=== PATIENT | female | born 1970 | race Caucasian/White ===

== ENCOUNTER 2016-04-09 14:48 | Observation (INO) ==
[2016-04-09] MEDS ORDERED: Aspirin 81 MG TAB.CHEW PO ONE (14:52)
--- NOTE | 2016-04-09 14:56 | Emergency Department Note ---
Disposition Clinical Impression: Chest pain Qualifiers: Chest pain type: unspecified Qualified Code(s): R07.9 - Chest pain, unspecified Disposition: Admitted As Inpatient Condition: Fair Referrals: NO,PCP [Non-Partnered Physician] - Forms: ED Satisfaction Letter Time of Disposition: 17:37 Chest Pain HPI - General Chief Complaint: ED Chest Pain Stated Complaint: chest pain Time Seen by Provider: 04/09/16 14:52 Source: patient, EMS Mode of arrival: EMS Limitations: no limitations Vital Signs Reviewed: Yes Nursing Notes Reviewed: Yes - History of Present Illness HPI Narrative: 45-year-old who presents with chest pain that started over the last day or so. She describes it as heaviness in her chest. 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: constant Onset: during rest Pain Location: substernal, left chest Severity: moderate Quality: tightness, aching, heaviness Pain Radiation: none Improves with: nitroglycerin (Pain went from an 8 to a 3 with nitroglycerin.) Worsens with: nothing - Related Data Home Medications Medication Instructions Recorded Confirmed Bisoprolol/HCTZ 5/6.25 [Ziac 1 tab PO DAILY 01/11/16 03/29/16 5/6.25] Previous Rx's Medication Instructions Recorded Folic Acid 1 mg PO DAILY #30 tablet 12/29/15 Cyanocobalamin (Vitamin B-12) 1,000 mcg PO DAILY #30 tab 01/18/16 [Vitamin B12] Prochlorperazine Maleate 10 mg PO Q6HR PRN #90 tablet 02/15/16 [Compazine] Magic Mouthwash 10 ml PO TID PRN #260 ml 02/18/16 Levothyroxine [Synthroid] 88 mcg PO 0630 #30 tablet 03/14/16 Ondansetron ODT [Zofran ODT] 4 mg SL Q4HR PRN #60 tab.rapdis 03/22/16 Amitriptyline [Elavil] 50 mg PO HS #90 tablet 03/29/16 Gabapentin [Neurontin] 300 mg PO HS #30 capsule 03/29/16 Granisetron [Sancuso] 1 each TD DAILY #10 patch.tdwk 03/29/16 LORazepam [Ativan] 1 mg PO Q6H PRN #60 tablet 03/29/16 Pramipexole Di-HCl [Pramipexole 0.125 mg PO HS #90 tablet 03/29/16 Dihydrochloride] Oxycodone HCl 10 mg PO Q2H PRN #90 tab 04/05/16 Oxycodone HCl [Oxycodone HCl ER] 45 mg PO Q12H #90 tab.er.12h 04/05/16 Allergies Allergy/AdvReac Type Severity Reaction Status Date / Time No Known Allergies Allergy Verified 10/07/15 21:28 Constitutional: Denies: fever, chills, weakness, weight change Eyes: Denies: eye pain, eye discharge, vision change ENT ED: Denies: ear pain, throat pain, dental pain, hearing loss, epistaxis, congestion, dysphagia Cardiovascular: Reports: chest pain. Denies: palpitations, dyspnea on exertion , edema, syncope Respiratory: Denies: cough, dyspnea, wheezes, hemoptysis, stridor Gastrointestinal: Denies: abdominal pain, nausea, vomiting, diarrhea, constipation, hematemesis, melena, hematochezia Genitourinary: Denies: dysuria, frequency, hematuria, discharge Musculoskeletal: Denies: back pain, neck pain, arthralgia, myalgia Integumentary: Denies: rash, abrasion, lesions Neurological: Denies: headache, weakness, numbness, paresthesias, confusion, abnormal gait, vertigo Psychiatric: Denies: anxiety, depression, suicidal thoughts, homicidal thoughts , auditory hallucinations, visual hallucinations Endocrine: Denies: fatigue Hematological/Lymphatic: Denies: easy bleeding, easy bruising Allergic/Immunologic: Denies: facial swelling, urticaria Chest Pain PMH - Past Medical History Medical history: Reports: arthritis, cancer (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), GERD, hypertension, malignancy, thyroid disease, other Surgical history: Reports: , cancer surgery, colectomy, colostomy, orthopedic, other, other Psychiatric history: Reports: anxiety, other SURFACE LAY OUT TECHNICIAN history: Reports: 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 LAY OUT TECHNICIAN history - Social History Smoking Status: Never smoker Alcohol use: Reports: none Drug use: Reports: none Physical Exam - General Limitations: no limitations - Head Head exam: atraumatic, normocephalic, normal inspection - Eye Eye exam: Present: normal appearance, PERRL, EOMI - ENT ENT exam: normal exam, normal oropharynx, mucous membranes moist - Neck Neck exam: Present: normal inspection, full ROM, trachea midline - Chest Chest inspection: Present: normal inspection, symmetric chest wall rise - Respiratory Respiratory exam: Present: normal lung sounds bilaterally - Cardiovascular Cardiovascular exam: Present: regular rate, normal rhythm, normal heart sounds - Abdominal Exam Abdominal exam: Present: soft, Non-Tender. Absent: tenderness, distention, guarding, rebound, rigidity - Extremities Exam Extremities exam: Present: normal inspection, full ROM. Absent: tenderness, pedal edema - Expanded Lower Extremity Exam Neurovascular/Tendon exam: Absent: motor deficit, sensory deficit, tendon deficit Gait: observed and normal - Back Exam Back exam: Present: normal inspection, full ROM. Absent: tenderness - Neurological Exam Neurological exam: Present: alert, oriented X3 - Psychiatric Psychiatric exam: Present: normal affect, normal mood - Skin Skin exam: Present: warm, dry, intact, normal color Course - Consultations Consultation #1: Discussed with loretta Bellamy. Time: 17:37 Vital Signs Temperature 98.2 F 04/09/16 14:51 Pulse Rate 97 04/09/16 14:51 Respiratory Rate 14 04/09/16 14:51 Blood Pressure 113/81 04/09/16 14:51 O2 Sat by Pulse Oximetry 98 04/09/16 14:51 Temperature 98.2 F 04/09/16 14:51 Pulse Rate 91 04/09/16 16:41 Respiratory Rate 16 04/09/16 16:41 Blood Pressure 120/80 04/09/16 16:41 O2 Sat by Pulse Oximetry 97 04/09/16 16:41 Oxygen Delivery Oxygen Delivery Room Air Chest Pain - Lab Data Result diagrams: 04/09/16 15:53 04/09/16 15:53 Lab Results 04/09/16 04/09/16 04/09/16 Range/Units 15:53 15:53 15:53 WBC 3.6 L (4.3-11.1) K/mcL RBC 2.18 L (3.82-4.97) M/mcL Hgb 7.0 L (11.5-15.4) g/dL Hct 20.5 L (35.3-44.9) % MCV 94.0 (83.0-100.0) fL MCH 32.1 (28.0-33.3) pg MCHC 34.1 (31.6-35.5) g/dL RDW 19.9 H (11.5-14.5) % Plt Count 115 L (140-400) K/mcL MPV 8.9 L (9.4-12.4) fL Immature Gran % 0.3 (0-4) % Seg Neutrophils % 74.0 % Lymphocytes % 15.9 % Monocytes % 6.4 % Eosinophils % 3.1 % Basophils % 0.3 % Neutrophils # 2.7 (1.6-8.9) K/mcL Lymphocytes # 0.6 (0.6-4.6) K/mcL Monocytes # 0.2 (0.0-1.3) K/mcL Eosinophils # 0.1 (0.0-0.6) K/mcL Basophils # 0.0 (0.0-0.2) K/mcL PT 12.7 H (9.4-12.1) Seconds INR 1.2 APTT 28.1 (26.0-36.0) Seconds D-Dimer (0-500) ng/mLFEU Sodium 138 (136-145) mEq/L Potassium 2.7 L (3.5-4.5) mEq/L Chloride 103 (98-109) mEq/L Carbon Dioxide 27 (19-29) mEq/L BUN 11 (7-20) mg/dL Creatinine 0.59 (0.57-1.11) mg/dL Est GFR ( Amer) > 60 (> 60) Est GFR (Non-Af Amer) > 60 (> 60) BUN/Creatinine Ratio 19 (6-26) Glucose 86 (70-99) mg/dL Calculated Osmolality 285 (280-300) Calcium 8.1 L (8.6-10.8) mg/dL Troponin I (0-0.03) ng/mL 04/09/16 04/09/16 Range/Units 15:53 15:53 WBC (4.3-11.1) K/mcL RBC (3.82-4.97) M/mcL Hgb (11.5-15.4) g/dL Hct (35.3-44.9) % MCV (83.0-100.0) fL MCH (28.0-33.3) pg MCHC (31.6-35.5) g/dL RDW (11.5-14.5) % Plt Count (140-400) K/mcL MPV (9.4-12.4) fL Immature Gran % (0-4) % Seg Neutrophils % % Lymphocytes % % Monocytes % % Eosinophils % % Basophils % % Neutrophils # (1.6-8.9) K/mcL Lymphocytes # (0.6-4.6) K/mcL Monocytes # (0.0-1.3) K/mcL Eosinophils # (0.0-0.6) K/mcL Basophils # (0.0-0.2) K/mcL PT (9.4-12.1) Seconds INR APTT (26.0-36.0) Seconds D-Dimer 2148 H (0-500) ng/mLFEU Sodium (136-145) mEq/L Potassium (3.5-4.5) mEq/L Chloride (98-109) mEq/L Carbon Dioxide (19-29) mEq/L BUN (7-20) mg/dL Creatinine (0.57-1.11) mg/dL Est GFR ( Amer) (> 60) Est GFR (Non-Af Amer) (> 60) BUN/Creatinine Ratio (6-26) Glucose (70-99) mg/dL Calculated Osmolality (280-300) Calcium (8.6-10.8) mg/dL Troponin I 0.00 (0-0.03) ng/mL - EKG Data EKG attestation: Yes I reviewed and interpreted this EKG. EKG shows normal: sinus rhythm Rate: normal Rhythm: NSR Interpretation: no acute changes Heart Score - Score History: Moderately Suspicious EKG: Non Specific repolarisation Disturbance Age: 45-65 Risk Factors: 1-2 risk factors Troponin: Less than normal limit HEART Score Total: 4
[2016-04-09] MEDS ORDERED: *HR* OxyCODONE/APAP 5/325 TABLET PO ONE (15:12)
[2016-04-09 16:03] LABS: Basophils % 0.3 %; Eosinophils # 0.1 K/mcL (0.0-0.6); Eosinophils % 3.1 %; Hematocrit 20.5 % (35.3-44.9); Immature Granulocytes % 0.3 % (0-4); Lymphocytes # 0.6 K/mcL (0.6-4.6); Lymphocytes % 15.9 %; Mean Corpuscular HGB Conc 34.1 g/dL (31.6-35.5); Mean Corpuscular Hemoglobin 32.1 pg (28.0-33.3); Mean Platelet Volume 8.9 fL (9.4-12.4); Monocytes # 0.2 K/mcL (0.0-1.3); Monocytes % 6.4 %; Neutrophils # 2.7 K/mcL (1.6-8.9); Platelet Count 115 K/mcL (140-400); Red Blood Count 2.18 M/mcL (3.82-4.97); Red Cell Distribution Width 19.9 % (11.5-14.5)
[2016-04-09 16:15] LABS: INR 1.2; Prothrombin Time 12.7 Seconds (9.4-12.1)
[2016-04-09 16:18] LABS: Activated Partial Thrombo Time 28.1 Seconds (26.0-36.0); BUN/Creatinine Ratio 19 (6-26); Blood Urea Nitrogen 11 mg/dL (7-20); Calcium 8.1 mg/dL (8.6-10.8); Carbon Dioxide 27 mEq/L (19-29); Chloride 103 mEq/L (98-109); Glucose 86 mg/dL (70-99); Osmolality,Calculated 285 (280-300); Potassium 2.7 mEq/L (3.5-4.5); Sodium 138 mEq/L (136-145); eGFR For African Americans > 60 (> 60); eGFR For Non-African Americans > 60 (> 60)
[2016-04-09] MEDS ORDERED: Naloxone 0.4 MG/ML INJ IVP PRN (19:57)
[2016-04-09] MEDS ORDERED: Ondansetron 4 MG/2 ML VIAL IVP PRN (19:57)
[2016-04-09] MEDS ORDERED: Nitroglycerin 0.4 MG TAB.SUBL SL PRN (20:07)
[2016-04-09] MEDS ORDERED: *HR* LORazepam 1 MG TABLET PO PRN (20:08)
--- NOTE | 2016-04-09 20:37 | Internal Med History&Physical ---
<John Greenfield - Last Filed: 04/09/16 21:38> Date of Encounter: 04/09/16 Time of Encounter: 19:30 Assessment and Plan (1) Chest pain Current visit: Yes Status: Acute Atypical chest pain; no precipitating factors, relieved with nitro, located mid/ sub-sternal. R/o ACS. Family history of cardiac disease, no personal history. No acute EKG changes noted. Troponin neg x 1, will recheck. Plan for stress test tomorrow. Continue ASA daily, nitro prn. If troponin positive consider cardiology consult. Qualifiers: Chest pain type: unspecified Qualified Code(s): R07.9 - Chest pain, unspecified (2) Hypokalemia Current visit: No Status: Acute History of hypokalemia in the setting of persistent nausea and vomiting; however patient denies any recent vomiting. K+ found to be 2.7. Patient received 60meg PO KCl in the ED. Will recheck and monitor and replace as needed. (3) Anemia Current visit: No Status: Chronic Multifactorial secondary to iron deficiency, chronic pelvic/cervical cancer, vitamin B12 and folate deficiencies. Patient had a history of multiple iron transfusions. Continue home medications. Hgb currently 7.0, will transfuse and monitor. Qualifiers: Anemia type: iron deficiency Iron deficiency anemia type: chronic blood loss Qualified Code(s): D50.0 - Iron deficiency anemia secondary to blood loss (chronic) (4) Leukopenia due to antineoplastic chemotherapy Current visit: No Status: Acute WBC currently 3.6. Was 4.5 on 03/22/16. Continue to monitor. (5) Cervix cancer Current visit: No Status: Chronic Metastatic, with peritoneal lymph nodes, bowel and pelvic wall involvement Status post colostomy. Currently undergoing radiation , Mon, for 3 more weeks, than will begin another round of chemo. Continue medications for pain control. Qualifiers: Malignant neoplasm of cervix location: unspecified location Qualified Code( s): C53.9 - Malignant neoplasm of cervix uteri, unspecified (6) Colostomy in place Current visit: No Status: Chronic History of GI beed. No active bleeding noted. No tenderness around colostomy site. Soft brown stool present in bag. Continue to watch for any changes in stool. (7) Hypothyroidism Current visit: No Status: Chronic Continue home medication. Qualifiers: Hypothyroidism type: acquired Qualified Code(s): E03.9 - Hypothyroidism, unspecified (8) HTN (hypertension) Current visit: Yes Status: Acute continue home medications. Qualifiers: Hypertension type: essential hypertension Qualified Code(s): I10 - Essential (primary) hypertension (9) GERD (gastroesophageal reflux disease) Current visit: Yes Status: Acute Continue PPI. Qualifiers: Esophagitis presence: esophagitis presence not specified Qualified Code(s) : K21.9 - Gastro-esophageal reflux disease without esophagitis Internal Medicine - H&P: HPI Chief complaint: chest pain Admitted From: Emergency Dept Plans for Post Hospital Care: Home History of present illness: Ms. Aj is a 45 year old female that presented via EMS for chest pain that began this morning. 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 Patient states the chest began this AM after she was already awake , but was not associated with any activity or stress. Pain is a constant heaviness located midsternal with radiation into the left precordial, substernal region, with associated tingling in her left hand. Patient states the pain was a 10/10 in severity prior to arrival, after 3 SLN pain was a 2/10. Currently it has returned to a 7/10. Patient also notes dizziness and nausea. Denies syncope, vomiting, shortness of breath. Patient does states she had has chronic lower abdominal pain associated with her cancer that she takes pain medication for. Patient currently undergoing radiation 3x week for 3 weeks, then will begin another round of chemo. Patient states she sees Dr. Levin as oncologist and Dr. Diaz for the radiation therapy. In the ED patient was found to be hypokalemic, KCl given PO, patient states she has difficulty swallowing large pills; she associated this with her thyroid. Past Med Surg Social Fam HX - Past Medical History Medical history: arthritis, cancer, GERD, hypertension, malignancy, thyroid disease, other Psychiatric history: anxiety, other - Past Surgical History Surgical History: , cancer surgery, colectomy, colostomy, orthopedic, other, other - Social History Smoking Status: Never smoker Smokeless Tobacco Status: No Alcohol use: none Drug use: none - Family History Mother Hx Family Cardiac Disorders: Yes (HTN) Hx Family Cancer: Yes (cervical) Father Hx Family Cancer: Yes (head/neck cancer) Daughter Hx Family GI Disorders: Yes (crohn disease) Internal Medicine - H&P: Meds Folic Acid 1 mg PO DAILY #30 tablet 12/29/15 [Rx] Bisoprolol/HCTZ 5/6.25 [Ziac 5/6.25] 1 tab PO DAILY 01/11/16 [History] Cyanocobalamin (Vitamin B-12) [Vitamin B12] 1,000 mcg PO DAILY #30 tab 01/18/16 [Rx] Prochlorperazine Maleate [Compazine] 10 mg PO Q6HR PRN #90 tablet 02/15/16 [Rx] Magic Mouthwash 10 ml PO TID PRN #260 ml 02/18/16 [Rx] Levothyroxine [Synthroid] 88 mcg PO 0630 #30 tablet 03/14/16 [Rx] Ondansetron ODT [Zofran ODT] 4 mg SL Q4HR PRN #60 tab.rapdis 03/22/16 [Rx] Amitriptyline [Elavil] 50 mg PO HS #90 tablet 03/29/16 [Rx] Gabapentin [Neurontin] 300 mg PO HS #30 capsule 03/29/16 [Rx] Granisetron [Sancuso] 1 each TD DAILY #10 patch.tdwk 03/29/16 [Rx] LORazepam [Ativan] 1 mg PO Q6H PRN #60 tablet 03/29/16 [Rx] Pramipexole Di-HCl [Pramipexole Dihydrochloride] 0.125 mg PO HS #90 tablet 03/29 [Rx] Oxycodone HCl 10 mg PO Q2H PRN #90 tab 04/05/16 [Rx] Oxycodone HCl [Oxycodone HCl ER] 45 mg PO Q12H #90 tab.er.12h 04/05/16 [Rx] Allergies No Known Allergies Allergy (Verified 10/07/15 21:28) All Systems PM: A 10-system review of systems was performed and is negative for pertinent findings except as documented above in the HPI. - Constitutional Constitutional: no chills, no fever(s), no falls - EENT Eyes: no loss of vision Nose, mouth and throat: dysphagia (with large pills), no neck pain - Cardiovascular Cardiovascular ROS IM: chest pain, lightheadedness, no dyspnea, no edema, no syncope - Respiratory Respiratory: no cough, no dyspnea - Gastrointestinal Gastrointestinal: abdominal pain, nausea, no constipation, no vomiting - Genitourinary Genitourinary: no dysuria - Musculoskeletal Musculoskeletal ROS IM: arthralgias (knee) - Integumentary Integumentary IM: no erythema, no rash - Neurological Neurological ROS: dizziness, tingling, no confusion, no headache(s), no numbness - Psychiatric Psychiatric: anxiety - Constitutional Vitals: Temp Pulse Resp BP Pulse Ox 97.8 F 78 16 122/80 99 04/09/16 18:18 04/09/16 18:18 04/09/16 18:18 04/09/16 18:18 04/09/16 18:22 General appearance: Present: cooperative, mild distress, A&O X 3, answers questions appropriately - Head Head exam: Present: atraumatic, normocephalic - Eye Eye exam: Present: EOMI, conjuntiva pink, sclera anicteric - Neck Neck exam general surgery: Present: full ROM, supple, trachea midline - Respiratory Respiratory exam: Present: CTAB. Absent: accessory muscle use, chest wall tenderness, rales, rhonchi, wheezes - Cardiovascular Cardiovascular exam: Present: RRR, +S1, +S2. Absent: diastolic murmur, gallop, rubs, systolic murmur - GI/Abdominal GI/Abdominal exam: Present: normal bowel sounds, soft, tenderness (suprapubic tenderness, worse with palpation), no peritoneal signs. Absent: distended, guarding Additional comments: colostomy in place to the left of umbilicus, soft brown stool preset in bag. - Extremities Exam Extremities exam: Present: warm. Absent: calf tenderness, cyanotic, pedal edema - Neurological Exam Neurological exam: Present: alert, oriented X3, no focal deficits. Absent: facial droop, speech deficit - Psychiatric Psychiatric exam: Present: flat affect. Absent: anxious - Skin Skin exam: Present: dry, intact Internal Med - H&P Results - Labs CBC & Chem 7: 04/09/16 15:53 04/09/16 15:53 <Briana Rosas - Last Filed: 04/09/16 22:05> Date of Encounter: 04/09/16 Internal Medicine - H&P: HPI History of present illness: Ms. Aj is a 45 year old female All Systems PM: A 10-system review of systems was performed and is negative for pertinent findings except as documented above in the HPI. - Constitutional Vitals: Temp Pulse Resp BP Pulse Ox 97.6 F 80 16 124/87 99 04/09/16 21:30 04/09/16 21:30 04/09/16 21:30 04/09/16 21:30 04/09/16 21:30 Internal Med - H&P Results - Labs CBC & Chem 7: 04/09/16 15:53 04/09/16 15:53 Labs: Cardiac Enzymes 04/09/16 Range/Units 21:30 Troponin I 0.00 (0-0.03) ng/mL - Attending Attestation I examined this patient and my medical decision-making was reviewed with the STRAIGHT CUTTER MACHINE/PA/Advanced Practice Nurse/Resident Physician. I agree with the documented findings, disposition and treatment plan as described except to the extent set forth below. Left sided substernal chest pain with radiation to the left arm relieved with Nitroglycerin SL, given the typical presentation of chest pain, will rule out ACS. Serial TNI x 3, if TNI positive, cancel stress test. Consider cardiology eval if stress test is abnormal. At this time patient is resting comfortably in bed and denies any chest pain, sob at this time. Will continue to closely monitor.
[2016-04-09] MEDS: *HR* OxyCODONE ER (12 HR) 40 MG TABLET PO SCH (21:22)
[2016-04-09] MEDS: Ondansetron ODT 4 MG TAB.RAPDIS SL PRN (21:39)
[2016-04-09] MEDS ORDERED: 0.9 % Sodium Chloride 250 ML ONE (22:43)
[2016-04-10] MEDS: *HR* OxyCODONE Immed Rel 5 MG TABLET PO PRN ×4 (00:38→22:21)
[2016-04-10] MEDS: Ondansetron ODT 4 MG TAB.RAPDIS SL PRN ×2 (01:36→11:36)
[2016-04-10] MEDS ORDERED: 0.9 % Sodium Chloride 250 ML ONE (02:06)
[2016-04-10 04:14] LABS: Basophils % 0.6 %; Eosinophils # 0.2 K/mcL (0.0-0.6); Eosinophils % 4.8 %; Hematocrit 26.6 % (35.3-44.9); Immature Granulocytes % 0.3 % (0-4); Lymphocytes # 0.7 K/mcL (0.6-4.6); Lymphocytes % 20.9 %; Mean Corpuscular HGB Conc 33.1 g/dL (31.6-35.5); Mean Corpuscular Hemoglobin 31.4 pg (28.0-33.3); Mean Platelet Volume 8.6 fL (9.4-12.4); Monocytes # 0.2 K/mcL (0.0-1.3); Monocytes % 6.6 %; Neutrophils # 2.2 K/mcL (1.6-8.9); Platelet Count 107 K/mcL (140-400); Red Cell Distribution Width 19.1 % (11.5-14.5); Segmented Neutrophils % 66.8 %
[2016-04-10 04:15] LABS: Hemoglobin 8.8 g/dL (11.5-15.4)
[2016-04-10 04:24] LABS: INR 1.2; Prothrombin Time 12.8 Seconds (9.4-12.1)
[2016-04-10 04:27] LABS: Activated Partial Thrombo Time 29.6 Seconds (26.0-36.0); BUN/Creatinine Ratio 18 (6-26); Blood Urea Nitrogen 12 mg/dL (7-20); Calcium 8.5 mg/dL (8.6-10.8); Carbon Dioxide 25 mEq/L (19-29); Chloride 103 mEq/L (98-109); Glucose 82 mg/dL (70-99); Osmolality,Calculated 283 (280-300); Potassium 3.4 mEq/L (3.5-4.5); Sodium 137 mEq/L (136-145); eGFR For African Americans > 60 (> 60); eGFR For Non-African Americans > 60 (> 60)
[2016-04-10] MEDS ORDERED: *HR* HYDROmorphone (PF) 1 MG/ML SYRINGE IVP ONE (05:07)
[2016-04-10] MEDS: 0.9 % Sodium Chloride 1,000 ML IVC SCH ×2 (05:17→18:18)
[2016-04-10 06:23] LABS: Hematocrit 26.9 % (35.3-44.9)
[2016-04-10] MEDS: Bisoprolol/HCTZ 5/6.25 TABLET PO SCH ×2 (10:55→11:02)
[2016-04-10] MEDS: Folic Acid 1 MG TABLET PO SCH (11:02)
[2016-04-10] MEDS: *HR* OxyCODONE ER (12 HR) 40 MG TABLET PO SCH ×2 (11:02→22:59)
[2016-04-10] MEDS: Pantoprazole 40 MG VIAL IVP SCH (11:03)
[2016-04-10] MEDS: Aspirin 81 MG TAB.CHEW PO SCH (11:03)
--- NOTE | 2016-04-10 14:03 | Internal Med Progress Note ---
Date of Encounter: 04/10/16 Time of Encounter: 11:45 - Assessment and plan (1) Chest pain Current Visit: Yes Status: Acute Assessment and plan: Atypical chest pain. No relation to activity. Plan for stress test tomorrow. Continue supportive care. Troponins have been negative. No EKG changes. Qualifiers: Chest pain type: precordial chest pain Qualified Code(s): R07.2 - Precordial pain (2) GERD (gastroesophageal reflux disease) Current Visit: Yes Status: Acute Assessment and plan: Continue Protonix. Qualifiers: Esophagitis presence: esophagitis presence not specified Qualified Code(s) : K21.9 - Gastro-esophageal reflux disease without esophagitis (3) HTN (hypertension) Current Visit: Yes Status: Acute Assessment and plan: Patient was having low normal blood pressure earlier this morning. It has since improved. Will continue to monitor blood pressure. Qualifiers: Hypertension type: essential hypertension Qualified Code(s): I10 - Essential (primary) hypertension (4) Hypokalemia Current Visit: No Status: Acute Assessment and plan: Improving with replacement. (5) Leukopenia due to antineoplastic chemotherapy Current Visit: No Status: Acute Assessment and plan: Stable. (6) Anemia Current Visit: No Status: Chronic Assessment and plan: Improved after transfusion. Continue to monitor blood counts Qualifiers: Anemia type: iron deficiency Iron deficiency anemia type: chronic blood loss Qualified Code(s): D50.0 - Iron deficiency anemia secondary to blood loss (chronic) (7) Cervix cancer Current Visit: No Status: Chronic Assessment and plan: Continue treatment plan per oncology and radiation therapy as outpatient. Qualifiers: Malignant neoplasm of cervix location: unspecified location Qualified Code( s): C53.9 - Malignant neoplasm of cervix uteri, unspecified (8) Colostomy in place Current Visit: No Status: Chronic (9) Hypothyroidism Current Visit: No Status: Chronic Assessment and plan: Continue levothyroxine Qualifiers: Hypothyroidism type: acquired Qualified Code(s): E03.9 - Hypothyroidism, unspecified - Subjective Interval history: Patient had gone down for a stress test earlier today but could not complete it as her blood pressure was running low in the 90s. His dizziness. She continues to have some chest pain that has central chest in location with radiation down her left arm. - Constitutional Vitals: Temp Pulse Resp BP Pulse Ox 98.1 F 86 18 116/79 100 04/10/16 10:53 04/10/16 10:53 04/10/16 10:53 04/10/16 10:53 04/10/16 10:53 General appearance: Present: cooperative, mild distress, A&O X 3, answers questions appropriately - Respiratory Respiratory exam: Present: CTAB. Absent: accessory muscle use, rales, rhonchi, wheezes - GI/Abdominal GI/Abdominal exam: Present: normal bowel sounds, soft, no peritoneal signs. Absent: distended, tenderness - Extremities Exam Extremities exam: Present: warm, radial pulses palpable and symetrical. Absent : calf tenderness, cyanotic, pedal edema - Neurological Exam Neurological exam: Present: CN II-XII intact, oriented X3, no focal deficits. Absent: facial droop, speech deficit - Skin Skin exam: Present: dry, intact Internal Medicine: Result - Labs CBC & Chem 7: 04/10/16 06:00 04/10/16 03:45 Labs: Short CBC 04/10/16 04/10/16 Range/Units 03:45 06:00 WBC 3.4 L (4.3-11.1) K/mcL Hgb 8.8 L D 9.0 L (11.5-15.4) g/dL Hct 26.6 L 26.9 L (35.3-44.9) % Plt Count 107 L (140-400) K/mcL Neutrophils # 2.2 (1.6-8.9) K/mcL BMP 04/10/16 03:45 Sodium 137 Potassium 3.4 L Chloride 103 Carbon Dioxide 25 BUN 12 Creatinine 0.68 Glucose 82 Calcium 8.5 L Cardiac Enzymes 04/09/16 Range/Units 21:30 Troponin I 0.00 (0-0.03) ng/mL - ABG Interpretation ABG results: PT/INR, D-dimer PT 12.8 Seconds (9.4-12.1) H 04/10/16 03:45 D-Dimer 2148 ng/mLFEU (0-500) H 04/09/16 15:53 - VTE Documentation of Mechanical Device: Intermittent pneumatic compression device Consult Discharge Plan - Plan Referrals: Justin Morgan, CHEESE PROCESSOR [Primary Care Provider] - - Attending Attestation This document has been at least partially created by Dragon medical voice recognition technology by Dr. Tolbert. Errors in grammar, wording or other phrases may exist. If errors are found after the documentation is signed, they will be addressed individually in the addendum section of this document when appropriate. Medical Decision Making - MDM Narrative Medical decision making narrative: Moderate risk for complications - Lab Data Result diagrams: 04/10/16 06:00 04/10/16 03:45 Lab Results 04/09/16 04/09/16 04/10/16 Range/Units 18:52 21:30 03:45 WBC 3.4 L (4.3-11.1) K/mcL RBC 2.80 L (3.82-4.97) M/mcL Hgb 8.8 L D (11.5-15.4) g/dL Hct 26.6 L (35.3-44.9) % MCV 95.0 (83.0-100.0) fL MCH 31.4 (28.0-33.3) pg MCHC 33.1 (31.6-35.5) g/dL RDW 19.1 H (11.5-14.5) % Plt Count 107 L (140-400) K/mcL MPV 8.6 L (9.4-12.4) fL Immature Gran % 0.3 (0-4) % Seg Neutrophils % 66.8 % Lymphocytes % 20.9 % Monocytes % 6.6 % Eosinophils % 4.8 % Basophils % 0.6 % Neutrophils # 2.2 (1.6-8.9) K/mcL Lymphocytes # 0.7 (0.6-4.6) K/mcL Monocytes # 0.2 (0.0-1.3) K/mcL Eosinophils # 0.2 (0.0-0.6) K/mcL Basophils # 0.0 (0.0-0.2) K/mcL PT (9.4-12.1) Seconds INR APTT (26.0-36.0) Seconds Sodium (136-145) mEq/L Potassium (3.5-4.5) mEq/L Chloride (98-109) mEq/L Carbon Dioxide (19-29) mEq/L BUN (7-20) mg/dL Creatinine (0.57-1.11) mg/dL Est GFR ( Amer) (> 60) Est GFR (Non-Af Amer) (> 60) BUN/Creatinine Ratio (6-26) Glucose (70-99) mg/dL Calculated Osmolality (280-300) Calcium (8.6-10.8) mg/dL Troponin I 0.00 (0-0.03) ng/mL Blood Type A POSITIVE Antibody Screen NEGATIVE Crossmatch See Detail 04/10/16 04/10/16 04/10/16 Range/Units 03:45 03:45 06:00 WBC (4.3-11.1) K/mcL RBC (3.82-4.97) M/mcL Hgb 9.0 L (11.5-15.4) g/dL Hct 26.9 L (35.3-44.9) % MCV (83.0-100.0) fL MCH (28.0-33.3) pg MCHC (31.6-35.5) g/dL RDW (11.5-14.5) % Plt Count (140-400) K/mcL MPV (9.4-12.4) fL Immature Gran % (0-4) % Seg Neutrophils % % Lymphocytes % % Monocytes % % Eosinophils % % Basophils % % Neutrophils # (1.6-8.9) K/mcL Lymphocytes # (0.6-4.6) K/mcL Monocytes # (0.0-1.3) K/mcL Eosinophils # (0.0-0.6) K/mcL Basophils # (0.0-0.2) K/mcL PT 12.8 H (9.4-12.1) Seconds INR 1.2 APTT 29.6 (26.0-36.0) Seconds Sodium 137 (136-145) mEq/L Potassium 3.4 L (3.5-4.5) mEq/L Chloride 103 (98-109) mEq/L Carbon Dioxide 25 (19-29) mEq/L BUN 12 (7-20) mg/dL Creatinine 0.68 (0.57-1.11) mg/dL Est GFR ( Amer) > 60 (> 60) Est GFR (Non-Af Amer) > 60 (> 60) BUN/Creatinine Ratio 18 (6-26) Glucose 82 (70-99) mg/dL Calculated Osmolality 283 (280-300) Calcium 8.5 L (8.6-10.8) mg/dL Troponin I (0-0.03) ng/mL Blood Type Antibody Screen Crossmatch
[2016-04-10] MEDS: Ipratropium/Albuterol Neb 3 ML IH SCH ×3 (17:52→23:49)
[2016-04-11] MEDS: Ondansetron ODT 4 MG TAB.RAPDIS SL PRN (00:03)
[2016-04-11] MEDS: Ondansetron 4 MG/2 ML VIAL IVP PRN ×3 (02:30→17:31)
[2016-04-11] MEDS ORDERED: *HR* HYDROmorphone (PF) 1 MG/ML SYRINGE IVP ONE (02:38)
[2016-04-11] MEDS: 0.9 % Sodium Chloride 1,000 ML IVC SCH ×2 (04:27→22:04)
[2016-04-11] MEDS: Pantoprazole 40 MG VIAL IVP SCH ×2 (04:33→10:56)
[2016-04-11] MEDS: Ipratropium/Albuterol Neb 3 ML IH SCH ×5 (04:48→20:13)
[2016-04-11 05:33] LABS: Basophils % 0.3 %; Immature Granulocytes % 0.6 % (0-4); Mean Corpuscular HGB Conc 33.6 g/dL (31.6-35.5)
[2016-04-11 05:35] LABS: Eosinophils % 0.9 %; Hematocrit 25.3 % (35.3-44.9); Hemoglobin 8.5 g/dL (11.5-15.4); Immature Platelets 1.3 % (1.1-6.1); Lymphocytes # 0.3 K/mcL (0.6-4.6); Lymphocytes % 8.1 %; Mean Corpuscular Hemoglobin 31.3 pg (28.0-33.3); Mean Platelet Volume 8.2 fL (9.4-12.4); Monocytes # 0.2 K/mcL (0.0-1.3); Monocytes % 4.9 %; Platelet Count 108 K/mcL (140-400); Red Blood Count 2.72 M/mcL (3.82-4.97); Segmented Neutrophils % 85.2 %
[2016-04-11 05:53] LABS: BUN/Creatinine Ratio 14 (6-26); Blood Urea Nitrogen 11 mg/dL (7-20); Calcium 8.2 mg/dL (8.6-10.8); Carbon Dioxide 23 mEq/L (19-29); Chloride 104 mEq/L (98-109); Glucose 94 mg/dL (70-99); Osmolality,Calculated 277 (280-300); Potassium 3.6 mEq/L (3.5-4.5); Sodium 134 mEq/L (136-145); eGFR For African Americans > 60 (> 60); eGFR For Non-African Americans > 60 (> 60)
[2016-04-11] MEDS ORDERED: Regadenoson 0.4 MG/5 ML SYRINGE IVP ONE (07:12)
[2016-04-11] MEDS: *HR* OxyCODONE ER (12 HR) 40 MG TABLET PO SCH ×2 (10:10→22:04)
[2016-04-11] MEDS: *HR* OxyCODONE Immed Rel 5 MG TABLET PO PRN ×3 (10:56→17:30)
[2016-04-11] MEDS: Aspirin 81 MG TAB.CHEW PO SCH (10:56)
[2016-04-11] MEDS: Potassium Chloride Elixir 20 MEQ/15 ML UDC PO SCH (10:56)
[2016-04-11] MEDS: Folic Acid 1 MG TABLET PO SCH (10:56)
--- NOTE | 2016-04-11 11:14 | Nuclear Medicine Stress Report ---
Regadenoson Nuclear 2 day Name: ANA VINES Date of Study: 04/10/2016 Date: 1970 Ht: 60.0 in Medical Record#: [id number] Age: 45 Wt: 144.0 lb Gender: Female Order #: [id number] Location: [facility] Room: [facility] Supervising Provider: David Garcia CNP Reading Physician: Ger Tai DO, FACAarti, TAYLOR HOLLOWAY Ordering Physician: Don Tolbert MD Primary Care Physician: Justin Morgan CNP Stress Technologist: Dominique Schwartz, FRUIT PEELER, CCT, CPFT Field Crop Technical Officer: Gael Wright Indications: Chest Pain Impression: Pharmacologic stress ECG is negative for ischemia at level of heart rate achieved. Gated EF = 74%. Perfusion imaging was negative for ischemia or infarct. History: Hypertension Stress Test Summary: Stress Test Type: Pharmacologic Regadenoson 0.4mg/5ml given IV Baseline Information: Initial Heart Rate: 92 Blood Pressure: 104/74 Stress Information: Stress Time: 4 min sec Test Terminated Due to (primary): As per protocol Maximum Blood Pressure: 104/60 Maximum Heart Rate: 111 Percent Maximum Heart Rate Achieved: 64 Double Product: [id number] METS Reached: 1 Symptoms: Shortness of breath Nuclear Summary: SPECT myocardial perfusion imaging using Tc99m Sestamibi given intravenously was performed at rest and following cardiac stress testing. The resting images were obtained following initial dose of 9.5 mCi. Following stress an additional dose of 33.5 mCi was given at peak exercise or 30 seconds post regadenoson infusion. Medication Given: Time Medication Dose Units Route Findings: Stress Note * Resting ECG demonstrated normal sinus rhythm. * No baseline arrhythmias were noted. * Pharmacologic stress ECG is negative for ischemia at level of heart rate achieved. * No arrhythmias were noted during stress. * Patient had no chest pain during stress. * Normal hemodynamic responses to pharmacologic stress. Study Quality * Study quality was fair. Increased GI uptake obscuring the inferior/inferolateral segments. Gated EF % * Gated EF = 74%. Left Ventricle * The left ventricle is not dilated. LVEDV = 100 mL. NORMALS * Normal wall motion. * Normal segmental perfusion in stress. Inferior Perfusion Rest * The mid to apical inferior segments show a mild to moderate reduction in perfusion. Perfusion appears improved on stress imaging, which is consistent with artifact. TID * No evidence of transient ischemic dilatation. * TID ratio = 1.13. Lung Uptake * There is no evidence of increase lung uptake. Updated by Ger Tai DO, FACAarti, JEWEL, FASTORSTEN on 04/11/2016 11:05:57 AM electronically signed on 04/11/2016 11:07:56 AM with status of Final
--- NOTE | 2016-04-11 12:14 | Discharge Summary ---
Date of Encounter: 04/11/16 Time of Encounter: 12:12 - Discharge Diagnosis (1) Chest pain Priority: Primary Status: Acute Qualifiers: Chest pain type: precordial chest pain Qualified Code(s): R07.2 - Precordial pain (2) GERD (gastroesophageal reflux disease) Priority: Secondary Status: Acute Qualifiers: Esophagitis presence: esophagitis presence not specified Qualified Code(s) : K21.9 - Gastro-esophageal reflux disease without esophagitis (3) HTN (hypertension) Priority: Secondary Status: Acute Qualifiers: Hypertension type: essential hypertension Qualified Code(s): I10 - Essential (primary) hypertension (4) Hypokalemia Priority: Secondary Status: Acute (5) Leukopenia due to antineoplastic chemotherapy Priority: Secondary Status: Acute (6) Anemia Priority: Secondary Status: Chronic Qualifiers: Anemia type: iron deficiency Iron deficiency anemia type: chronic blood loss Qualified Code(s): D50.0 - Iron deficiency anemia secondary to blood loss (chronic) (7) Cervix cancer Priority: Secondary Status: Chronic Qualifiers: Malignant neoplasm of cervix location: unspecified location Qualified Code( s): C53.9 - Malignant neoplasm of cervix uteri, unspecified (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 (9) Hypothyroidism Priority: Secondary Status: Chronic Qualifiers: Hypothyroidism type: acquired Qualified Code(s): E03.9 - Hypothyroidism, unspecified - Discharge Medications Prescriptions: Omeprazole [PriLOSEC] 40 mg PO DAILY #30 cap Home Medications: Folic Acid 1 mg PO DAILY #30 tablet 12/29/15 [Rx] Bisoprolol/HCTZ 5/6.25 [Ziac 5/6.25] 1 tab PO DAILY 01/11/16 [History] Cyanocobalamin (Vitamin B-12) [Vitamin B12] 1,000 mcg PO DAILY #30 tab 01/18/16 [Rx] Prochlorperazine Maleate [Compazine] 10 mg PO Q6HR PRN #90 tablet 02/15/16 [Rx] Magic Mouthwash 10 ml PO TID PRN #260 ml 02/18/16 [Rx] Ondansetron ODT [Zofran ODT] 4 mg SL Q4HR PRN #60 tab.rapdis 03/22/16 [Rx] Amitriptyline [Elavil] 50 mg PO HS #90 tablet 03/29/16 [Rx] Gabapentin [Neurontin] 300 mg PO HS #30 capsule 03/29/16 [Rx] LORazepam [Ativan] 1 mg PO Q6H PRN #60 tablet 03/29/16 [Rx] Pramipexole Di-HCl [Pramipexole Dihydrochloride] 0.125 mg PO HS #90 tablet 03/29 [Rx] Oxycodone HCl 10 mg PO Q2H PRN #90 tab 04/05/16 [Rx] Oxycodone HCl [Oxycodone HCl ER] 45 mg PO Q12H #90 tab.er.12h 04/05/16 [Rx] Granisetron [Sancuso] 1 patch TD DAILY 04/10/16 [History] Levothyroxine [Synthroid] 88 mcg PO DAILY 04/10/16 [History] Omeprazole [PriLOSEC] 40 mg PO DAILY #30 cap 04/11/16 [Rx] Allergies/Adverse Reactions: Allergies No Known Allergies Allergy (Verified 10/07/15 21:28) Procedures/tests Complete & Pending: Procedures Performed prior 72 hours Category Date Time Status NM chula perf SPECT multi [NM] Routine Exams 04/09/16 21:47 Taken SP pharm nuclear stress Routine Y 04/11/16 07:30 Completed Date of admission: 04/09/16 17:44 Primary care physician: Justin Morgan CNP Discharging clinician: Don Tolbert Anticipated date of discharge: 04/11/16 - Patient Status Disposition: Home, Self-Care Condition: Fair - Discharge Instructions Instructions: Chest Pain (DC), Anemia (GEN), Hypothyroidism (DC) Follow Up With: Justin Morgan CNP [Primary Care Provider] - - Diet and Activity Activity: increase activity as tolerated Diet: low salt diet Hospital course: Ms. Aj is a 45 year old female with history of cervical cancer who was observed in the hospital after presenting with chest pain. She was evaluated with telemetry EKG and troponins. Troponins have been negative. EKG does not show any acute ST segment changes. Patient then underwent stress test today which was again negative for any ischemia. As such patient is stable to be discharged home. She will be started on omeprazole for gastroesophageal reflux disease. She can follow up with her primary care provider for further management. - Time Spent with Patient Total time spent providing and/or coordinating discharge services: Less than 30 minutes (25 min) - Constitutional Vitals: Temp Pulse Resp BP Pulse Ox 98.1 F 83 16 128/81 98 04/11/16 10:34 04/11/16 10:57 04/11/16 10:34 04/11/16 10:57 04/11/16 10:34 General appearance: Present: cooperative, mild distress, A&O X 3, answers questions appropriately - Respiratory Respiratory exam: Present: CTAB. Absent: accessory muscle use, rales, rhonchi, wheezes - Cardiovascular Cardiovascular exam: Present: RRR, +S1, +S2. Absent: diastolic murmur, gallop, rubs, systolic murmur - GI/Abdominal GI/Abdominal exam: Present: normal bowel sounds, soft, no peritoneal signs. Absent: distended, tenderness - VTE Documentation of Mechanical Device: Intermittent pneumatic compression device - Attending Attestation This document has been at least partially created by [employer] recognition technology by Dr. Tolbert. Errors in grammar, wording or other phrases may exist. If errors are found after the documentation is signed, they will be addressed individually in the addendum section of this document when appropriate.
--- NOTE | 2016-04-11 13:34 | Electrocardiograph Report ---
[facility] Test Date: 2016-04-09 Pat Name: Erum Aj Department: 102 Room: [facility] Gender: F Parts Sales Representative: Grace : 1970 Requested By: Samuel Flanagan Order Number: [id number] Reading MD: Ger Tai DO Measurements Intervals [place] Rate: 91 P: 19 ND: 150 QRS: -4 QRSD: 76 T: 5 QT: 355 QTc: 403 Interpretive Statements Sinus rhythm Possible left ventricular hypertrophy Electronically Signed On 04-11-16 13:34:03 EST by Ger Tai DO
[2016-04-11] MEDS: Prochlorperazine 10 MG/2 ML VIAL IV PRN (22:12)
[2016-04-12] MEDS: Ipratropium/Albuterol Neb 3 ML IH SCH ×4 (00:04→10:59)
[2016-04-12] MEDS: *HR* OxyCODONE Immed Rel 5 MG TABLET PO PRN ×2 (04:48→08:24)
[2016-04-12] MEDS: Prochlorperazine 10 MG/2 ML VIAL IV PRN (06:11)
[2016-04-12] MEDS: Pantoprazole 40 MG VIAL IVP SCH (08:23)
[2016-04-12] MEDS: 0.9 % Sodium Chloride 1,000 ML IVC SCH (08:23)
[2016-04-12] MEDS: Ondansetron 4 MG/2 ML VIAL IVP PRN (08:24)
[2016-04-12] MEDS: Aspirin 81 MG TAB.CHEW PO SCH (08:24)
[2016-04-12] MEDS: Potassium Chloride Elixir 20 MEQ/15 ML UDC PO SCH (08:24)
[2016-04-12] MEDS: Folic Acid 1 MG TABLET PO SCH (08:24)
[2016-04-12] MEDS: Ondansetron ODT 4 MG TAB.RAPDIS SL PRN (11:30)
[2016-04-12] MEDS: *HR* OxyCODONE ER (12 HR) 40 MG TABLET PO SCH (11:30)
[2016-04-12 12:32] VITALS: BP 109/67
--- NOTE | 2016-04-12 16:59 | Internal Med Progress Note ---
Date of Encounter: 04/12/16 Time of Encounter: 10:00 - Assessment and plan (1) Chest pain Status: Acute Assessment and plan: Atypical chest pain. No relation to activity. stress test negative. Troponins have been negative. No EKG changes. Has chest wall tenderness. Qualifiers: Chest pain type: precordial chest pain Qualified Code(s): R07.2 - Precordial pain (2) GERD (gastroesophageal reflux disease) Status: Acute Assessment and plan: Continue Protonix. Qualifiers: Esophagitis presence: esophagitis presence not specified Qualified Code(s) : K21.9 - Gastro-esophageal reflux disease without esophagitis (3) HTN (hypertension) Status: Acute Assessment and plan: Stable, continue home medication Qualifiers: Hypertension type: essential hypertension Qualified Code(s): I10 - Essential (primary) hypertension (4) Leukopenia due to antineoplastic chemotherapy Status: Acute Assessment and plan: Stable. (5) Anemia Status: Chronic Assessment and plan: Improved after transfusion. Continue to monitor blood counts Qualifiers: Anemia type: iron deficiency Iron deficiency anemia type: chronic blood loss Qualified Code(s): D50.0 - Iron deficiency anemia secondary to blood loss (chronic) (6) Anemia Status: Chronic Qualifiers: Anemia type: iron deficiency Iron deficiency anemia type: unspecified iron deficiency Qualified Code(s): D50.9 - Iron deficiency anemia, unspecified (7) Cervix cancer Status: Chronic Assessment and plan: Continue treatment plan per oncology and radiation therapy as outpatient. Qualifiers: Malignant neoplasm of cervix location: unspecified location Qualified Code( s): C53.9 - Malignant neoplasm of cervix uteri, unspecified (8) Colostomy in place Status: Chronic (9) Hypothyroidism Status: Chronic Assessment and plan: Continue levothyroxine Qualifiers: Hypothyroidism type: acquired Qualified Code(s): E03.9 - Hypothyroidism, unspecified - Time Spent With Patient 25 - 35 minutes - Subjective Interval history: Patient is a 45-year-old female admitted for chest pain. Her past medical history is significant for cervical cancer, hypertension, thyroid disease. Patient is supposed to discharge yesterday. Discharge is on hold because patient has nausea and vomiting. I saw and examined the patient today. She has no chest pain. She has a chronic nausea which probably due to her cervical cancer/chemotherapy and said her nausea level is about the same with that previously. She has no vomiting today. Discussed with patient, she came with chest Pain and admitted to rule out ACS. ACS has been ruled out and she had no further chest pain now, will discharge her home today and she will follow up with her PCP for chronic nausea. Patient verbalize understanding and will go home today. - Constitutional Vitals: Temp Pulse Resp BP Pulse Ox 98.3 F 92 16 109/67 99 04/12/16 11:29 04/12/16 12:30 04/12/16 11:29 04/12/16 12:30 04/12/16 11:29 General appearance: Present: cooperative, mild distress, A&O X 3, answers questions appropriately - Head Head exam: Present: atraumatic, normocephalic - Eye Eye exam: Present: PERRL, conjuntiva pink, sclera anicteric Pupils: Present: PERRL - Neck Neck exam general surgery: Present: supple, trachea midline. Absent: lymphadenopathy - Respiratory Respiratory exam: Present: chest wall tenderness (Mild chest wall tenderness), CTAB. Absent: accessory muscle use, rales, rhonchi, wheezes - Cardiovascular Cardiovascular exam: Present: RRR, +S1, +S2. Absent: diastolic murmur, gallop, rubs, systolic murmur - GI/Abdominal GI/Abdominal exam: Present: normal bowel sounds, soft, no peritoneal signs. Absent: distended, tenderness Additional comments: Colostomy in place. - Extremities Exam Extremities exam: Present: warm, radial pulses palpable and symetrical. Absent : calf tenderness, cyanotic, pedal edema - Neurological Exam Neurological exam: Present: CN II-XII intact, oriented X3, no focal deficits. Absent: pronater drift, facial droop, speech deficit - Skin Skin exam: Present: dry, intact Internal Medicine: Result - Labs CBC & Chem 7: 04/11/16 05:15 04/11/16 05:15 - ABG Interpretation ABG results: PT/INR, D-dimer PT 12.8 Seconds (9.4-12.1) H 04/10/16 03:45 D-Dimer 2148 ng/mLFEU (0-500) H 04/09/16 15:53 - VTE Documentation of Mechanical Device: Intermittent pneumatic compression device Consult Discharge Plan - Plan Instructions: Chest Pain (DC), Heart Healthy Diet (DC), Hypothyroidism (DC), Anemia (GEN) Additional Instructions: Activity as tolerated. Low salt diet. Go to scheduled follow up appointment. If chest pain returns go to ER. Referrals: Justin Morgan CNP [Primary Care Provider] - 04/19/16 11:30 am Prescriptions: Omeprazole [PriLOSEC] 40 mg PO DAILY #30 cap
== END 2016-04-12 12:40 | disposition home or self-care (01) ==
LOC: 3NENU 14:48 → EMEROO 14:48 → SUATTDRO 17:44 → 3NENU 18:07
PROVIDERS: ADMIT Internal Medicine; ATTEND Internal Medicine

== ENCOUNTER 2016-04-24 11:02 | Inpatient (IN) ==
[2016-04-24] MEDS ORDERED: 0.9 % Sodium Chloride 1,000 ML IVC ONE (11:09)
[2016-04-24] MEDS ORDERED: 0.9 % Sodium Chloride 1,000 ML IV ONE (11:18)
[2016-04-24] MEDS ORDERED: Ondansetron 4 MG/2 ML VIAL IV ONE (11:18)
[2016-04-24] MEDS ORDERED: *HR* HYDROmorphone (PF) 1 MG/ML SYRINGE IVP ONE ×2 (11:18→14:22)
[2016-04-24 12:03] LABS: Basophils % 0.2 %; Hematocrit 24.5 % (35.3-44.9); Mean Corpuscular Volume 94.2 fL (83.0-100.0); Red Cell Distribution Width 16.6 % (11.5-14.5)
[2016-04-24 12:05] LABS: Eosinophils % 0.9 %; Hemoglobin 8.1 g/dL (11.5-15.4); Immature Granulocytes % 0.4 % (0-4); Immature Platelets 1.2 % (1.1-6.1); Lymphocytes # 0.5 K/mcL (0.6-4.6); Lymphocytes % 11.4 %; Mean Corpuscular HGB Conc 33.1 g/dL (31.6-35.5); Mean Corpuscular Hemoglobin 31.2 pg (28.0-33.3); Mean Platelet Volume 8.4 fL (9.4-12.4); Monocytes # 0.2 K/mcL (0.0-1.3); Monocytes % 4.4 %; Neutrophils # 3.8 K/mcL (1.6-8.9); Platelet Count 103 K/mcL (140-400); Segmented Neutrophils % 82.7 %
[2016-04-24 12:19] LABS: Bilirubin,Urine Negative (Negative); Blood,Urine Large (Negative); Clarity,Urine Cloudy (Clear); Color,Urine Yellow (Yellow); Glucose,Urine (UA) Normal (Normal); Ketones,Urine Negative (Negative); Leukocyte Esterase,Urine Moderate (Negative); Nitrite,Urine Negative (Negative); Protein,Urine >=300 mg/dL (Neg-Trace); Specific Gravity,Urine 1.016 (1.010-1.025); Urobilinogen,Urine Normal (Normal)
[2016-04-24 12:20] LABS: Albumin 2.4 g/dL (3.5-5.0); Albumin/Globulin Ratio 0.5 (1.1-2.2); Alkaline Phosphatase 85 Units/L (38-126); Aspartate Amino Transferase 9 Units/L (5-34); BUN/Creatinine Ratio 10 (6-26); Bilirubin,Direct 0.3 mg/dL (0.0-0.5); Bilirubin,Indirect 0.4 mg/dL (0.0-1.2); Bilirubin,Total 0.7 mg/dL (0.2-1.2); Blood Urea Nitrogen 9 mg/dL (7-20); C-Reactive Protein 155 mg/L (Less than 5); Calcium 7.8 mg/dL (8.6-10.8); Carbon Dioxide 29 mEq/L (19-29); Chloride 95 mEq/L (98-109); Globulin 4.5 g/dL (2.4-3.5); Glucose 94 mg/dL (70-99); Osmolality,Calculated 282 (280-300); Potassium 2.9 mEq/L (3.5-4.5); Sodium 137 mEq/L (136-145); Total Protein 6.9 g/dL (6.0-8.3); eGFR For African Americans > 60 (> 60); eGFR For Non-African Americans > 60 (> 60)
[2016-04-24 12:23] LABS: Alanine Aminotransferase < 6 Units/L (0-55)
[2016-04-24 12:26] LABS: Amphetamine Screen,Urine Negative ng/mL (Cutoff=1000); Barbiturate Screen,Urine Negative ng/mL (Cutoff=200); Benzodiazepines Screen,Urine Negative ng/mL (Cutoff=200); Cannabinoid Screen,Urine Negative ng/mL (Cutoff = 50); Cocaine Screen,Urine Negative ng/mL (Cutoff= 300); Opiate Screen,Urine Positive ng/mL (Cutoff=300); Phencyclidine Screen,Urine Negative ng/mL (Cutoff=25)
[2016-04-24 12:26] LABS: INR 1.4; Prothrombin Time 15.6 Seconds (9.4-12.1)
[2016-04-24 12:29] LABS: Activated Partial Thrombo Time 30.1 Seconds (26.0-36.0)
[2016-04-24 12:38] LABS: Bacteria,Urine None Seen per hpf (None-Few); Hyaline Casts,Urine Few per lpf (None-Few); RBC,Urine 50-100 per hpf (0-3); Squamous Epithelial Cell,Urine Many per lpf (None-Few); WBC,Urine 50-100 per hpf (0-3)
--- NOTE | 2016-04-24 13:09 | Emergency Department Note ---
Disposition Clinical Impression: Generalized weakness, Hypokalemia Syncope Qualifiers: Syncope type: unspecified Qualified Code(s): R55 - Syncope and collapse Cervical cancer Qualifiers: Malignant neoplasm of cervix location: unspecified location Qualified Code(s): C53.9 - Malignant neoplasm of cervix uteri, unspecified Disposition: Admitted As Inpatient Condition: Good Referrals: Justin Morgan, APPOINTMENT SETTER [Primary Care Provider] - Forms: ED Satisfaction Letter Time of Disposition: 14:13 Altered Mental Status HPI - General Chief Complaint: ED Altered Mental Status Stated Complaint: AMS/weakness Time Seen by Provider: 04/24/16 11:05 Source: patient, EMS Limitations: no limitations Nursing Notes Reviewed: Yes Vital Signs Reviewed: Yes - History of Present Illness HPI Narrative: Patient presents emergency room with what she describes as for syncopal events this morning. She feels generalized malaise and weakness. She is currently getting radiation treatment for cervical cancer. She has not had any other significant intervention at this time. She denies fevers chills nausea vomiting or diarrhea denies chest pain shortness breath headache or vision changes. Denies any other symptoms or complaints at this time except for generalized malaise and syncopal events. Onset (ago): [employer] Timing confirmed by: family member Pain Severity: moderate Pain Scale: 7 Consistency of Symptoms: getting worse Context: cancer Associated symptoms: Reports: loss of appetite, malaise, syncope, weakness - Related Data Home Medications Medication Instructions Recorded Confirmed Bisoprolol/HCTZ 5/6.25 [Ziac 1 tab PO DAILY 01/11/16 04/24/16 5/6.25] Granisetron [Sancuso] 1 patch TD DAILY 04/10/16 04/24/16 Levothyroxine [Synthroid] 88 mcg PO DAILY 04/10/16 04/24/16 Previous Rx's Medication Instructions Recorded Prochlorperazine Maleate 10 mg PO Q6HR PRN #90 tablet 02/15/16 [Compazine] Magic Mouthwash 10 ml PO TID PRN #260 ml 02/18/16 Ondansetron ODT [Zofran ODT] 4 mg SL Q4HR PRN #60 tab.rapdis 03/22/16 Amitriptyline [Elavil] 50 mg PO HS #90 tablet 03/29/16 Gabapentin [Neurontin] 300 mg PO HS #30 capsule 03/29/16 LORazepam [Ativan] 1 mg PO Q6H PRN #60 tablet 03/29/16 Pramipexole Di-HCl [Pramipexole 0.125 mg PO HS #90 tablet 03/29/16 Dihydrochloride] Oxycodone HCl 10 mg PO Q2H PRN #90 tab 04/05/16 Omeprazole [PriLOSEC] 40 mg PO DAILY #30 cap 04/11/16 Docusate [Colace] 100 mg PO BID PRN #0 capsule 04/16/16 Oxycodone HCl [Oxycodone HCl ER] 45 mg PO Q12H #180 tab.er.12h 04/19/16 Allergies Allergy/AdvReac Type Severity Reaction Status Date / Time No Known Allergies Allergy Verified 10/07/15 21:28 All systems ED: reviewed and negative except as stated. Constitutional: Reports: weakness. Denies: fever, chills, weight change Cardiovascular: Denies: chest pain, palpitations, dyspnea on exertion Respiratory: Denies: cough, dyspnea, wheezes, hemoptysis Gastrointestinal: Reports: abdominal pain, nausea. Denies: vomiting, diarrhea, constipation, hematemesis Genitourinary: Denies: urgency, dysuria, frequency, hematuria Musculoskeletal: Denies: back pain, neck pain, joint swelling, arthralgia Psychiatric: Denies: anxiety, depression, suicidal thoughts, homicidal thoughts Endocrine: Denies: fatigue Hematological/Lymphatic: Denies: easy bleeding Past Medical History - Past Medical History Attestation: Yes The following information was validated with the patient. Source: patient Medical history: Reports: arthritis, cancer, GERD, hypertension, malignancy, thyroid disease, other Surgical history: Reports: , cancer surgery, colostomy, orthopedic, other, other Psychiatric history: Reports: anxiety, other CHEMICAL LIBRARIAN history: Reports: no CHEMICAL LIBRARIAN history - Social History Smoking Status: Never smoker Smokeless Tobacco Status: No Alcohol use: Reports: none Drug use: Reports: none Physical Exam - General Limitations: no limitations General appearance: alert - Head Head exam: atraumatic, normocephalic, normal inspection - Neck Neck exam: Present: normal inspection, full ROM, trachea midline. Absent: tenderness, meningismus, lymphadenopathy - Chest Chest inspection: Present: normal inspection, symmetric chest wall rise. Absent : tenderness - Cardiovascular Cardiovascular exam: Present: normal rhythm, tachycardia, normal heart sounds - Abdominal Exam Abdominal exam: Present: soft, tenderness (Diffuse lower abdominal tenderness but no signs of guarding rigidity or peritoneal symptoms). Absent: distention, guarding, rebound, rigidity, normal bowel sounds, John's sign, Rovsing's sign , tenderness at McBurney's Point - Extremities Exam Extremities exam: Present: normal inspection, full ROM, normal capillary refill. Absent: tenderness, pedal edema - Back Exam Back exam: Present: normal inspection, full ROM. Absent: tenderness, CVA tenderness (R), CVA tenderness (L) - Neurological Exam Neurological exam: Present: alert, oriented X3, CN II-XII intact, normal gait - Psychiatric Psychiatric exam: Present: flat affect. Absent: agitated, anxious, manic, homicidal ideation, suicidal ideation - Skin Skin exam: Present: warm, dry, intact, normal color Course Course Narrative: Patient seen and examined at the time of arrival. See history of present illness. Patient presents by EMS for evaluation of 4 syncopal events at home and generalized weakness. 45-year-old female with known cervical cancer who is currently being provided with radiation therapy to the lower abdomen. She presents here today with the above-mentioned complaints. Vital signs and transit were stable. She is alert and oriented 3. She answers questions appropriately. She was ambulatory from the EMS cot to better evaluate difficulty. Patient is very thin frail appearing female that is in some mild distress. She does not appear to be toxic in presentation but does appear to be ill and uncomfortable. Physical examination shows normal appearing HEENT examination. Lungs are clear heart is regular abdomen is tender but no signs of guarding or rigidity. She has no pain to palpation of the cervical thoracic or lumbar spine. She does have pain in the lower extremities and mild weakness but it is not reproducible on exam. She has no paresthesias or motor function deficits. Patient is concerning for possible progression to cancer related issues. She is also concerning for electrolyte abnormalities for dehydration and sepsis. Septic evaluation including blood cultures CBC chemistry troponin EKG chest x-ray CT of the head urinalysis were all ordered on initial presentation. Patient also CT imaging with contrast of the thoracic and lumbar spine to address any signs of osteomyelitis or metastatic disease considering her weakness and pain. Syncopal event is concerning secondary to her medical history and presentation. We will continue to monitor his workup is completed. Disposition will most likely be admission to the hospital. Will control his symptoms here in the emergency room and then discuss disposition with the patient. Pain medication to be provided along with nausea medication on the medication fluids given at this time - Reevaluation(s) Reevaluation #1: Patient's labs are all coming back within normal limits she is mildly hypokalemic. Patient provided with [facility] while here. CT imaging of the thoracic and lumbar spine are pending at this point. Admission process will be completed after this is done secondary to hypotension of unknown origin along with syncopal events today. Patient resting comfortably in the bed no apparent distress not requesting any other intervention at this time. We will continue monitoring admission is completed. Imaging pending Time: 13:00 Reevaluation #2: Patient CT imaging does not show any acute lytic lesions in the thoracic or lumbar spine. Patient is at baseline at this point. Admission to be completed for syncopal event and generalized weakness. Hospitals paged at this time Time: 14:06 Reevaluation #3: Patient was discussed with the hospitalist Dr. Hackett. Detailed review the patient's presentation symptoms and medical history were discussed. Only recommendation at this time is for antibiotic regiment of Rocephin to help with what he describes as possible urinary tract infection. No other issues noted at this time. Patient be admitted to the hospital for syncopal event weakness and urinary tract infection. No other acute issues this time we will continue to monitor here in the emergency room until admission process is completed Time: 14:13 Vital Signs Temperature 98.5 F 04/24/16 11:05 Pulse Rate 104 04/24/16 11:05 Respiratory Rate 18 04/24/16 11:05 Blood Pressure 143/86 04/24/16 11:05 O2 Sat by Pulse Oximetry 95 04/24/16 11:05 Temperature 98.5 F 04/24/16 11:05 Pulse Rate 90 04/24/16 13:03 Respiratory Rate 16 04/24/16 13:03 Blood Pressure 118/72 04/24/16 13:03 O2 Sat by Pulse Oximetry 100 04/24/16 13:03 Oxygen Delivery Oxygen Delivery Room Air Altered Mental Status - MDM Narrative Medical decision making narrative: Syncopal events, weakness, cervical cancer, hypokalemia, chronic anemia - Medical Records Medical records reviewed: Yes I reviewed the patient's medical records. - Lab Data Lab results reviewed: Yes I reviewed the patient's lab results. Result diagrams: 04/24/16 11:53 04/24/16 11:53 Lab Results 04/24/16 04/24/16 04/24/16 Range/Units 11:53 11:53 11:53 WBC 4.6 (4.3-11.1) K/mcL RBC 2.60 L (3.82-4.97) M/mcL Hgb 8.1 L (11.5-15.4) g/dL Hct 24.5 L (35.3-44.9) % MCV 94.2 (83.0-100.0) fL MCH 31.2 (28.0-33.3) pg MCHC 33.1 (31.6-35.5) g/dL RDW 16.6 H (11.5-14.5) % Plt Count 103 L D (140-400) K/mcL MPV 8.4 L (9.4-12.4) fL Immature Gran % 0.4 (0-4) % Seg Neutrophils % 82.7 % Lymphocytes % 11.4 % Monocytes % 4.4 % Eosinophils % 0.9 % Basophils % 0.2 % Neutrophils # 3.8 (1.6-8.9) K/mcL Lymphocytes # 0.5 L (0.6-4.6) K/mcL Monocytes # 0.2 (0.0-1.3) K/mcL Eosinophils # 0.0 (0.0-0.6) K/mcL Basophils # 0.0 (0.0-0.2) K/mcL Immature Plt Fraction 1.2 (1.1-6.1) % ESR (0-15) mm/hr PT 15.6 H (9.4-12.1) Seconds INR 1.4 APTT 30.1 (26.0-36.0) Seconds Sodium 137 (136-145) mEq/L Potassium 2.9 L (3.5-4.5) mEq/L Chloride 95 L (98-109) mEq/L Carbon Dioxide 29 (19-29) mEq/L BUN 9 (7-20) mg/dL Creatinine 0.88 (0.57-1.11) mg/dL Est GFR ( Amer) > 60 (> 60) Est GFR (Non-Af Amer) > 60 (> 60) BUN/Creatinine Ratio 10 (6-26) Glucose 94 (70-99) mg/dL Calculated Osmolality 282 (280-300) Calcium 7.8 L (8.6-10.8) mg/dL Total Bilirubin 0.7 (0.2-1.2) mg/dL Direct Bilirubin 0.3 (0.0-0.5) mg/dL Indirect Bilirubin 0.4 (0.0-1.2) mg/dL AST 9 (5-34) Units/L ALT < 6 (0-55) Units/L Alkaline Phosphatase 85 (38-126) Units/L Troponin I (0-0.03) ng/mL C-Reactive Protein 155 H (Less than 5) mg/L Serum Total Protein 6.9 (6.0-8.3) g/dL Albumin 2.4 L (3.5-5.0) g/dL Globulin 4.5 H (2.4-3.5) g/dL Albumin/Globulin Ratio 0.5 L (1.1-2.2) Urine Color (Yellow) Urine Clarity (Clear) Urine pH (5.0-8.0) pH Units Ur Specific [place] (1.010-1.025) Urine Protein (Neg-Trace) mg/dL Urine Glucose (UA) (Normal) mg/dL Urine Ketones (Negative) mg/dL Urine Blood (Negative) Urine Nitrite (Negative) Urine Bilirubin (Negative) Urine Urobilinogen (Normal) mg/dL Ur Leukocyte Esterase (Negative) Urine Microscopic RBC (0-3) per hpf Urine Microscopic WBC (0-3) per hpf Ur Squamous Epith Cells (None-Few) per lpf Urine Bacteria (None-Few) per hpf Hyaline Casts (None-Few) per lpf Ur Culture Indicated? (NO) Urine Opiates Screen (Bdbvaz=994) ng/mL Ur Barbiturates Screen (Oigllg=202) ng/mL Ur Phencyclidine Scrn (Cutoff=25) ng/mL Ur Amphetamines Screen (Sdguea=4699) ng/mL U Benzodiazepines Scrn (Paxecr=874) ng/mL Urine Cocaine Screen (Cutoff= 300) ng/mL U Marijuana (THC) Screen (Cutoff = 50) ng/mL 04/24/16 04/24/16 04/24/16 Range/Units 11:53 11:53 12:07 WBC (4.3-11.1) K/mcL RBC (3.82-4.97) M/mcL Hgb (11.5-15.4) g/dL Hct (35.3-44.9) % MCV (83.0-100.0) fL MCH (28.0-33.3) pg MCHC (31.6-35.5) g/dL RDW (11.5-14.5) % Plt Count (140-400) K/mcL MPV (9.4-12.4) fL Immature Gran % (0-4) % Seg Neutrophils % % Lymphocytes % % Monocytes % % Eosinophils % % Basophils % % Neutrophils # (1.6-8.9) K/mcL Lymphocytes # (0.6-4.6) K/mcL Monocytes # (0.0-1.3) K/mcL Eosinophils # (0.0-0.6) K/mcL Basophils # (0.0-0.2) K/mcL Immature Plt Fraction (1.1-6.1) % ESR 82 H (0-15) mm/hr PT (9.4-12.1) Seconds INR APTT (26.0-36.0) Seconds Sodium (136-145) mEq/L Potassium (3.5-4.5) mEq/L Chloride (98-109) mEq/L Carbon Dioxide (19-29) mEq/L BUN (7-20) mg/dL Creatinine (0.57-1.11) mg/dL Est GFR ( Amer) (> 60) Est GFR (Non-Af Amer) (> 60) BUN/Creatinine Ratio (6-26) Glucose (70-99) mg/dL Calculated Osmolality (280-300) Calcium (8.6-10.8) mg/dL Total Bilirubin (0.2-1.2) mg/dL Direct Bilirubin (0.0-0.5) mg/dL Indirect Bilirubin (0.0-1.2) mg/dL AST (5-34) Units/L ALT (0-55) Units/L Alkaline Phosphatase (38-126) Units/L Troponin I 0.01 (0-0.03) ng/mL C-Reactive Protein (Less than 5) mg/L Serum Total Protein (6.0-8.3) g/dL Albumin (3.5-5.0) g/dL Globulin (2.4-3.5) g/dL Albumin/Globulin Ratio (1.1-2.2) Urine Color Yellow (Yellow) Urine Clarity Cloudy A (Clear) Urine pH 7.0 (5.0-8.0) pH Units Ur Specific [place] 1.016 (1.010-1.025) Urine Protein >=300 H (Neg-Trace) mg/dL Urine Glucose (UA) Normal (Normal) mg/dL Urine Ketones Negative (Negative) mg/dL Urine Blood Large H (Negative) Urine Nitrite Negative (Negative) Urine Bilirubin Negative (Negative) Urine Urobilinogen Normal (Normal) mg/dL Ur Leukocyte Esterase Moderate H (Negative) Urine Microscopic RBC 50-100 H (0-3) per hpf Urine Microscopic WBC 50-100 H (0-3) per hpf Ur Squamous Epith Cells Many H (None-Few) per lpf Urine Bacteria None Seen (None-Few) per hpf Hyaline Casts Few (None-Few) per lpf Ur Culture Indicated? YES A (NO) Urine Opiates Screen (Repvzs=938) ng/mL Ur Barbiturates Screen (Fvrvqs=471) ng/mL Ur Phencyclidine Scrn (Cutoff=25) ng/mL Ur Amphetamines Screen (Tpagcy=4518) ng/mL U Benzodiazepines Scrn (Qynoyt=171) ng/mL Urine Cocaine Screen (Cutoff= 300) ng/mL U Marijuana (THC) Screen (Cutoff = 50) ng/mL 04/24/16 Range/Units 12:07 WBC (4.3-11.1) K/mcL RBC (3.82-4.97) M/mcL Hgb (11.5-15.4) g/dL Hct (35.3-44.9) % MCV (83.0-100.0) fL MCH (28.0-33.3) pg MCHC (31.6-35.5) g/dL RDW (11.5-14.5) % Plt Count (140-400) K/mcL MPV (9.4-12.4) fL Immature Gran % (0-4) % Seg Neutrophils % % Lymphocytes % % Monocytes % % Eosinophils % % Basophils % % Neutrophils # (1.6-8.9) K/mcL Lymphocytes # (0.6-4.6) K/mcL Monocytes # (0.0-1.3) K/mcL Eosinophils # (0.0-0.6) K/mcL Basophils # (0.0-0.2) K/mcL Immature Plt Fraction (1.1-6.1) % ESR (0-15) mm/hr PT (9.4-12.1) Seconds INR APTT (26.0-36.0) Seconds Sodium (136-145) mEq/L Potassium (3.5-4.5) mEq/L Chloride (98-109) mEq/L Carbon Dioxide (19-29) mEq/L BUN (7-20) mg/dL Creatinine (0.57-1.11) mg/dL Est GFR ( Amer) (> 60) Est GFR (Non-Af Amer) (> 60) BUN/Creatinine Ratio (6-26) Glucose (70-99) mg/dL Calculated Osmolality (280-300) Calcium (8.6-10.8) mg/dL Total Bilirubin (0.2-1.2) mg/dL Direct Bilirubin (0.0-0.5) mg/dL Indirect Bilirubin (0.0-1.2) mg/dL AST (5-34) Units/L ALT (0-55) Units/L Alkaline Phosphatase (38-126) Units/L Troponin I (0-0.03) ng/mL C-Reactive Protein (Less than 5) mg/L Serum Total Protein (6.0-8.3) g/dL Albumin (3.5-5.0) g/dL Globulin (2.4-3.5) g/dL Albumin/Globulin Ratio (1.1-2.2) Urine Color (Yellow) Urine Clarity (Clear) Urine pH (5.0-8.0) pH Units Ur Specific [place] (1.010-1.025) Urine Protein (Neg-Trace) mg/dL Urine Glucose (UA) (Normal) mg/dL Urine Ketones (Negative) mg/dL Urine Blood (Negative) Urine Nitrite (Negative) Urine Bilirubin (Negative) Urine Urobilinogen (Normal) mg/dL Ur Leukocyte Esterase (Negative) Urine Microscopic RBC (0-3) per hpf Urine Microscopic WBC (0-3) per hpf Ur Squamous Epith Cells (None-Few) per lpf Urine Bacteria (None-Few) per hpf Hyaline Casts (None-Few) per lpf Ur Culture Indicated? (NO) Urine Opiates Screen Positive H (Qdvvxz=165) ng/mL Ur Barbiturates Screen Negative (Altnum=908) ng/mL Ur Phencyclidine Scrn Negative (Cutoff=25) ng/mL Ur Amphetamines Screen Negative (Toaopg=1366) ng/mL U Benzodiazepines Scrn Negative (Oewixy=959) ng/mL Urine Cocaine Screen Negative (Cutoff= 300) ng/mL U Marijuana (THC) Screen Negative (Cutoff = 50) ng/mL - Radiology Data Radiology results reviewed: Yes I reviewed the patient's radiology results. - EKG Data EKG attestation: Yes I reviewed and interpreted this EKG. EKG shows normal: sinus rhythm, axis, intervals, QRS complexes, ST-T waves Rate: normal Rhythm: NSR [facility]/QRS: normal When compared to previous EKG there are: no significant changes (04/09/16) Interpretation: no acute changes, unchanged when compared to prior tracing (date ) Critical Care Time Critical Care Time: Yes Total Critical Care Time: 35 Attestation: Critical care independent of procedures medical management Attestation Statement - Attestation Attestation: Patient was seen with resident physician. I reviewed the history, physical, assessment and plan, and agree with the findings. I also personally evaluated this patient and had [id number] time with this patient. 45-year-old female presents to the emergency department with generalized malaise and 4-5 syncopal episodes earlier today. Patient says she has not been feeling well for the last several days she has unresectable cervical cancer, and says that she just not been feeling well. We will really was cause for her concern though was that she fell multiple times today after passing out. She said several times she fell all the way to the ground. She is not sure exactly how long she passed out for. She denies chest pain or shortness of breath. On examination patient appears ill, heart and lungs are unremarkable. Abdomen is soft and nontender. Back is diffusely tender to palpation. Head is normocephalic and atraumatic. Extremities otherwise unremarkable hips are intact and there is no evidence of traumatic injury. A thorough workup which included CT scans of the head and cervical and thoracic and lumbar spines were negative for either fracture or lytic lesions. Lab testing showed anemia and possible urinary tract infection. We will hydrate the patient treat her symptoms, and she will need to be admitted for the syncopal component. Hospitalist was contacted to arrange for admission. Patient was hemodynamically in stable condition at the time of admission. I agree with the resident physician assessment plan.
[2016-04-24] MEDS ORDERED: Acetaminophen 325 MG TABLET PO PRN (14:24)
[2016-04-24] MEDS ORDERED: Naloxone 0.4 MG/ML INJ IVP PRN (14:24)
--- NOTE | 2016-04-24 14:31 | Internal Med History&Physical ---
Date of Encounter: 04/24/16 Time of Encounter: 14:29 Assessment and Plan (1) Near syncope Current visit: Yes Status: Acute Likely secondary to severe generalized weakness and dehydration due to urinary tract infection Continue IV fluids and start Rocephin Sent urine culture Fall precautions The patient will be admitted for observation. She was to be a full code. Time spend his admission 40 minutes. She is high risk due to severe weakness (2) Cervical cancer Current visit: Yes Status: Acute Follow as outpatient with oncology Qualifiers: Malignant neoplasm of cervix location: unspecified location Qualified Code( s): C53.9 - Malignant neoplasm of cervix uteri, unspecified (3) Generalized weakness Current visit: Yes Status: Acute (4) Hydronephrosis Current visit: No Status: Acute Qualifiers: Hydronephrosis type: unspecified Qualified Code(s): N13.30 - Unspecified hydronephrosis (5) Hypokalemia Current visit: No Status: Acute Replete as needed (6) Restless leg syndrome Current visit: No Status: Chronic (7) UTI (urinary tract infection) Current visit: No Status: Ruled-out Omeprazole for GI prophylaxis and Lovenox for DVT prophylaxis Qualifiers: Urinary tract infection type: site unspecified Hematuria presence: without hematuria Qualified Code(s): N39.0 - Urinary tract infection, site not specified Internal Medicine - H&P: HPI Chief complaint: Weakness and syncopal episodes Admitted From: Emergency Dept History of present illness: Ms. Aj is a 45 year old female with a past medical history of cervical cancer status post radiation and chemotherapy who had almost 4 near syncopal episodes at home has been extremely weak for the past 2 days. The patient has been having a lot of urinary urgency recently. CT scan of the head was performed with a ER also CT scan of the lumbar spine and thoracic spine due to severe pain all of them without any acute findings. Chest x-ray is unremarkable but her urine analysis shows 100 white blood cells and 100 red blood cells. Since the patient is very symptomatic it is possible that she could be having an infection. Her hemoglobin is chronically low at 8.1, her potassium is 2.9. She has been very nauseous not been able to eat much. He is a still extremely weak after receiving fluids at the emergency room. Denies fevers or other complaints other than severe lower abdomen abdominal pain and back pain. Past Med Surg Social Fam HX - Past Medical History Medical history: arthritis, cancer (Cervical cancer status post radiation and chemotherapy with bilateral hydronephrosis status post stents), GERD, hypertension, malignancy, thyroid disease (Hypothyroidism), other ( Diverticulitis, neuropathy, anxiety, restless leg syndrome, migraine, transfusional iron overload, anemia of chronic disease, GERD) Psychiatric history: anxiety, other - Past Surgical History Surgical History: , cancer surgery, colostomy, orthopedic, other, other (Right chest Port-A-Cath, bilateral ureteral stents, left hemicolectomy Left knee surgery, negative stress test in April 2016) - Social History Smoking Status: Never smoker Smokeless Tobacco Status: No Alcohol use: none Drug use: none - Family History Mother Adopted: No Family Member Ethnicity: Non- Living Status: Hx Family Cardiac Disorders: Yes (HTN) Hx Family Cancer: Yes Father Hx Family Cancer: Yes (head/neck cancer) Daughter Hx Family GI Disorders: Yes (crohn disease) Internal Medicine - H&P: Meds Bisoprolol/HCTZ 5/6.25 [Ziac 5/6.25] 1 tab PO DAILY 01/11/16 [History] Prochlorperazine Maleate [Compazine] 10 mg PO Q6HR PRN #90 tablet 02/15/16 [Rx] Magic Mouthwash 10 ml PO TID PRN #260 ml 02/18/16 [Rx] Ondansetron ODT [Zofran ODT] 4 mg SL Q4HR PRN #60 tab.rapdis 03/22/16 [Rx] Amitriptyline [Elavil] 50 mg PO HS #90 tablet 03/29/16 [Rx] Gabapentin [Neurontin] 300 mg PO HS #30 capsule 03/29/16 [Rx] LORazepam [Ativan] 1 mg PO Q6H PRN #60 tablet 03/29/16 [Rx] Pramipexole Di-HCl [Pramipexole Dihydrochloride] 0.125 mg PO HS #90 tablet 03/29 [Rx] Oxycodone HCl 10 mg PO Q2H PRN #90 tab 04/05/16 [Rx] Granisetron [Sancuso] 1 patch TD DAILY 04/10/16 [History] Levothyroxine [Synthroid] 88 mcg PO DAILY 04/10/16 [History] Omeprazole [PriLOSEC] 40 mg PO DAILY #30 cap 04/11/16 [Rx] Docusate [Colace] 100 mg PO BID PRN #0 capsule 04/16/16 [Rx] Oxycodone HCl [Oxycodone HCl ER] 45 mg PO Q12H #180 tab.er.12h 04/19/16 [Rx] Allergies No Known Allergies Allergy (Verified 10/07/15 21:28) All Systems PM: A 10-system review of systems was performed and is negative for pertinent findings except as documented above in the HPI. Review of systems: Denies any chest pain or shortness of breath, other systems out of the 10 reviewed were negative - Constitutional Vitals: Temp Pulse Resp BP Pulse Ox 98.5 F 90 16 122/86 100 04/24/16 11:05 04/24/16 14:20 04/24/16 14:20 04/24/16 14:20 04/24/16 14:20 Exam: Alopecia from chemotherapy - Head Head exam: Present: atraumatic, normocephalic - Eye Eye exam: Present: PERRL, conjuntiva pink, sclera anicteric Pupils: Present: PERRL - Neck Neck exam general surgery: Present: supple, trachea midline. Absent: lymphadenopathy - Respiratory Respiratory exam: Present: decreased breath sounds, CTAB. Absent: accessory muscle use, rales, rhonchi, wheezes - Cardiovascular Cardiovascular exam: Present: RRR, +S1, +S2. Absent: diastolic murmur, gallop, rubs, systolic murmur - GI/Abdominal GI/Abdominal exam: Present: distended, normal bowel sounds, soft, tenderness ( Tender to touch in the lower abdomen, no rebound), no peritoneal signs. Absent : rebound - Extremities Exam Extremities exam: Present: warm, radial pulses palpable and symetrical. Absent : calf tenderness, cyanotic, pedal edema - Neurological Exam Neurological exam: Present: CN II-XII intact, oriented X3, no focal deficits. Absent: pronater drift, facial droop, speech deficit - Skin Skin exam: Present: dry, intact Internal Med - H&P Results - Labs CBC & Chem 7: 04/24/16 11:53 04/24/16 11:53 Labs: Short CBC 04/24/16 Range/Units 11:53 WBC 4.6 (4.3-11.1) K/mcL Hgb 8.1 L (11.5-15.4) g/dL Hct 24.5 L (35.3-44.9) % Plt Count 103 L D (140-400) K/mcL Neutrophils # 3.8 (1.6-8.9) K/mcL BMP 04/24/16 11:53 Sodium 137 Potassium 2.9 L Chloride 95 L Carbon Dioxide 29 BUN 9 Creatinine 0.88 Glucose 94 Calcium 7.8 L Cardiac Enzymes 04/24/16 Range/Units 11:53 Troponin I 0.01 (0-0.03) ng/mL Liver Function 04/24/16 Range/Units 11:53 Total Bilirubin 0.7 (0.2-1.2) mg/dL Direct Bilirubin 0.3 (0.0-0.5) mg/dL AST 9 (5-34) Units/L ALT < 6 (0-55) Units/L Alkaline Phosphatase 85 (38-126) Units/L Albumin 2.4 L (3.5-5.0) g/dL Urine 04/24/16 Range/Units 12:07 Urine Color Yellow (Yellow) Urine Clarity Cloudy A (Clear) Urine pH 7.0 (5.0-8.0) pH Units Ur Specific [place] 1.016 (1.010-1.025) Urine Protein >=300 H (Neg-Trace) mg/dL Urine Glucose (UA) Normal (Normal) mg/dL - Impressions ITS Impressions Chest X-Ray 04/24/16 11:09 IMPRESSION: No acute findings. D/ / Raina Chandler MD / Raina Chandler MD Interpreting Provider: Raina Chandler MD Head CT 04/24/16 11:11 IMPRESSION: No acute intracranial abnormality. D/ / Josemanuel Nava MD / Josemanuel Nava MD Interpreting Provider: Josemanuel Nava MD Lumbar Spine CT 04/24/16 11:19 IMPRESSION: No acute fracture. D/ / Raina Chandler MD / Raina Chandler MD Interpreting Provider: Raina Chandler MD Thoracic Spine CT 04/24/16 11:20 IMPRESSION: No definite osteolytic or osteoblastic metastatic disease in the thoracic spine. Degenerative cervical spondylosis and degenerative disc disease at T11-T12. D/ / Amarjit Salomon MD / Amarjit Salomon MD Interpreting Provider: Amarjit Salomon MD
[2016-04-24] MEDS: *HR* LORazepam 1 MG TABLET PO PRN (15:49)
[2016-04-24] MEDS: *HR* OxyCODONE ER (12 HR) 40 MG TABLET PO SCH (15:49)
[2016-04-24] MEDS: Ringers Solution, Lactated 1,000 ML IVC SCH (15:49)
[2016-04-24] MEDS: *HR* HYDROmorphone (PF) 1 MG/ML SYRINGE IVP PRN ×3 (15:50→22:01)
[2016-04-24] MEDS: Ondansetron 4 MG/2 ML VIAL IVP PRN (15:50)
[2016-04-24] MEDS: *HR* OxyCODONE Immed Rel 5 MG TABLET PO PRN ×3 (17:21→22:01)
[2016-04-24] MEDS: Gabapentin 300 MG CAPSULE PO SCH (21:29)
[2016-04-25] MEDS: Ringers Solution, Lactated 1,000 ML IVC SCH ×3 (01:02→23:10)
[2016-04-25] MEDS: Ondansetron 4 MG/2 ML VIAL IVP PRN ×2 (02:32→11:51)
[2016-04-25] MEDS: *HR* OxyCODONE ER (12 HR) 40 MG TABLET PO SCH (02:42)
[2016-04-25] MEDS: *HR* HYDROmorphone (PF) 1 MG/ML SYRINGE IVP PRN ×2 (02:46→06:13)
[2016-04-25 03:44] LABS: Hematocrit 23.3 % (35.3-44.9); Hemoglobin 7.6 g/dL (11.5-15.4); Immature Platelets 1.4 % (1.1-6.1); Mean Corpuscular HGB Conc 32.6 g/dL (31.6-35.5); Mean Corpuscular Volume 95.1 fL (83.0-100.0); Mean Platelet Volume 8.7 fL (9.4-12.4); Red Blood Count 2.45 M/mcL (3.82-4.97)
[2016-04-25 03:59] LABS: BUN/Creatinine Ratio 10 (6-26); Blood Urea Nitrogen 8 mg/dL (7-20); Calcium 7.6 mg/dL (8.6-10.8); Carbon Dioxide 27 mEq/L (19-29); Chloride 100 mEq/L (98-109); Glucose 107 mg/dL (70-99); Osmolality,Calculated 285 (280-300); Potassium 3.6 mEq/L (3.5-4.5); Sodium 138 mEq/L (136-145); eGFR For African Americans > 60 (> 60); eGFR For Non-African Americans > 60 (> 60)
[2016-04-25] MEDS: *HR* Enoxaparin 40 MG/0.4 ML SYRINGE SQ SCH (06:12)
--- NOTE | 2016-04-25 10:21 | Internal Med Progress Note ---
Date of Encounter: 04/25/16 Time of Encounter: 09:00 - Assessment and plan (1) Near syncope Current Visit: Yes Status: Acute Assessment and plan: Likely secondary to urinary tract infection. Chest x-ray negative. Head CT negative. Lumbar and thoracic CTs both negative. Hemoglobin stable. Hypokalemia resolved. Urinary tract infection noted, continue ceftriaxone. Tox screen positive for opiates only. OT and PT consultations pending. Abdominal CT also ordered at this time. She is alert and oriented 3 and complains of generalized abdominal pain. ITS Impressions Chest X-Ray 04/24/16 11:09 IMPRESSION: No acute findings. D/ / Raina Chandler MD / Raina Chandler MD Interpreting Provider: Raina Chandler MD Head CT 04/24/16 11:11 IMPRESSION: No acute intracranial abnormality. D/ / Josemanuel Nava MD / Josemanuel Nava MD Interpreting Provider: Josemanuel Nava MD Lumbar Spine CT 04/24/16 11:19 IMPRESSION: No acute fracture. D/ / Raina Chandler MD / Raina Chandler MD Interpreting Provider: Raina Chandler MD Thoracic Spine CT 04/24/16 11:20 IMPRESSION: No definite osteolytic or osteoblastic metastatic disease in the thoracic spine. Degenerative cervical spondylosis and degenerative disc disease at T11-T12. D/ / Amarjit Salomon MD / Amarjit Salomon MD Interpreting Provider: Amarjit Salomon MD (2) Intractable pain Current Visit: No Status: Acute Assessment and plan: Patient stating her pain is currently uncontrolled. Patient stating she takes oxycodone 15 mg at home. She states she spoke to take them every 12 and she has been taking them every 6 because they are not lasting. However it appears as if she takes 45 mg of oxycodone every 12 hours at home with 10 mg every 4 hours for breakthrough pain. This has been continued, will continue IV Dilaudid. She may need to transition to MS Contin, will continue to monitor. We will continue to address her pain. (3) UTI (urinary tract infection) Current Visit: No Status: Acute Assessment and plan: Abnormal urinalysis, culture pending. Continue ceftriaxone. Qualifiers: Urinary tract infection type: site unspecified Hematuria presence: without hematuria Qualified Code(s): N39.0 - Urinary tract infection, site not specified (4) Generalized abdominal pain Current Visit: Yes Status: Acute Assessment and plan: Given her history of cervical cancer and current complaint of generalized abdominal pain, will obtain abdominal CT at this time. ESR/CRP elevated, patient with history of enteritis in the past, concern for acute inflammatory process. (5) Cervical cancer Current Visit: Yes Status: Chronic Assessment and plan: Patient stating she is currently in radiation since July. Qualifiers: Malignant neoplasm of cervix location: unspecified location Qualified Code( s): C53.9 - Malignant neoplasm of cervix uteri, unspecified (6) Generalized weakness Current Visit: Yes Status: Acute Assessment and plan: Patient complains of generalized weakness. Likely secondary to urinary tract infection however she is currently undergoing treatment for cervical cancer, we will bring OT and PT on board. (7) Hypokalemia Current Visit: Yes Status: Resolved Assessment and plan: We will continue to trend, we will check magnesium (8) Anemia Current Visit: No Status: Chronic Assessment and plan: Currently stable and at the low end of her normal. We will continue to trend and transfuse if indicated. On 04/19/16, patient's ferritin levels were grossly elevated; no indication for iron supplementation. B12 at that time normal, folate normal, TSH checked in March also normal. Likely secondary to ongoing cancer treatment. Qualifiers: Anemia type: unspecified type Qualified Code(s): D64.9 - Anemia, unspecified (9) DVT prophylaxis Current Visit: No Status: Acute Assessment and plan: Subcutaneous Lovenox (10) GERD (gastroesophageal reflux disease) Current Visit: No Status: Chronic Assessment and plan: Denies current symptoms, continue omeprazole Qualifiers: Esophagitis presence: esophagitis presence not specified Qualified Code(s) : K21.9 - Gastro-esophageal reflux disease without esophagitis (11) HTN (hypertension) Current Visit: No Status: Chronic Assessment and plan: Controlled, will continue to trend and adjust medications as indicated. Qualifiers: Hypertension type: essential hypertension Qualified Code(s): I10 - Essential (primary) hypertension (12) Intractable vomiting with nausea Current Visit: No Status: Chronic Assessment and plan: She was able to eat half of her breakfast morning before she became nauseated. No vomiting. We will continue Zofran and add Phenergan Qualifiers: Vomiting type: cyclical vomiting Qualified Code(s): G43.A1 - Cyclical vomiting, intractable (13) Thrombocytopenia Current Visit: No Status: Chronic Assessment and plan: Chronic, currently consistent with her baseline. No signs of active bleeding. (14) Colostomy in place Current Visit: No Status: Chronic (15) Hypothyroidism Current Visit: No Status: Chronic Assessment and plan: TSH checked last month, normal Qualifiers: Hypothyroidism type: acquired Qualified Code(s): E03.9 - Hypothyroidism, unspecified (16) Mood disorder Current Visit: No Status: Chronic Assessment and plan: Mood and affect stable during my interaction with her. (17) Obesity (BMI 30-39.9) Current Visit: No Status: Chronic (18) Restless leg syndrome Current Visit: No Status: Chronic - Subjective Interval history: Patient seen and examined. On examination, patient sitting upright in bed watching television. Patient complaining of generalized pain worse in her abdomen. She states she was able to eat approximately half of her breakfast but became nauseated. Patient stating her pain is not currently controlled. - Constitutional Vitals: Temp Pulse Resp BP Pulse Ox 98.1 F 64 16 119/82 96 04/25/16 07:18 04/25/16 07:18 04/25/16 07:18 04/25/16 07:18 04/25/16 08:12 General appearance: Present: mild distress (2/2 pain), A&O X 3, pleasant, answers questions appropriately - Head Head exam: Present: atraumatic, normocephalic - Eye Eye exam: Present: PERRL, conjuntiva pink, sclera anicteric Pupils: Present: PERRL - Neck Neck exam general surgery: Present: supple, trachea midline. Absent: lymphadenopathy - Respiratory Respiratory exam: Present: decreased breath sounds. Absent: accessory muscle use, rales, respiratory distress, rhonchi, wheezes - Cardiovascular Cardiovascular exam: Present: RRR, +S1, +S2. Absent: diastolic murmur, gallop, rubs, systolic murmur - GI/Abdominal GI/Abdominal exam: Present: distended, normal bowel sounds, soft, tenderness ( diffuse), no peritoneal signs - Extremities Exam Extremities exam: Present: warm, radial pulses palpable and symetrical. Absent : calf tenderness, cyanotic, pedal edema - Neurological Exam Neurological exam: Present: alert, CN II-XII intact, oriented X3, no focal deficits, strengths equal and symetr throughout. Absent: pronater drift, facial droop, speech deficit - Skin Skin exam: Present: dry, intact, pallor, warm Internal Medicine: Result - Labs CBC & Chem 7: 04/25/16 03:25 04/25/16 03:25 Labs: Short CBC 04/25/16 Range/Units 03:25 WBC 5.6 (4.3-11.1) K/mcL Hgb 7.6 L (11.5-15.4) g/dL Hct 23.3 L (35.3-44.9) % Plt Count 102 L (140-400) K/mcL [facility] 04/25/16 03:25 Sodium 138 Potassium 3.6 Chloride 100 Carbon Dioxide 27 BUN 8 Creatinine 0.80 Glucose 107 H Calcium 7.6 L - ABG Interpretation ABG results: PT/INR, D-dimer PT 15.6 Seconds (9.4-12.1) H 04/24/16 11:53 Consult Discharge Plan - Plan Referrals: Justin Morgan [facility] [Primary Care Provider] -
[2016-04-25] MEDS ORDERED: *HR* HYDROmorphone (PF) 1 MG/ML SYRINGE IVP PRN ×2 (10:34→12:42)
[2016-04-25] MEDS: *HR* OxyCODONE Immed Rel 5 MG TABLET PO PRN (10:46)
[2016-04-25] MEDS: *HR* OxyCODONE ER (12 HR) 20 MG TABLET PO SCH ×3 (13:25→20:59)
--- NOTE | 2016-04-25 15:41 | Event Note ---
Date of Encounter: 04/25/16 Time of Encounter: 14:15 Patient seen and reexamined. I discussed the results of her abdominal CT with her. Abdominal CT revealing a bowel obstruction secondary to neoplastic mass. Spoke to oncology and they will see her. 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 Patient then had a PET scan and MRI which revealed diverticulitis, metastasis to iliac nodes, thyroiditis, and likely rectal malignancy. Patient then had a flexible sigmoidoscopy per Dr. Sanchez that was reported as unremarkable. Patient then started chemoradiation with cisplatin and had to be stopped after one week due to infiltration of small bowel. Patient was then seen at [facility] and in October , she had a laparoscopic procedure which revealed adhesions and a left hemicolectomy with creation of Karen pouch was performed at that time. Patient was then transferred back to [facility] due to difficulties obtaining transportation to [facility]. In November, she was started with Palliative treatment with Carboplastin. She then started with 3 weeks of palliative radiation that started on 03/29/16. She is a patient of Dr. Bernal. Today, I spoke to surgeon Dr. Patel who states the patient will need to be transferred to [facility] if surgery is indicated. Other option would be transferring the patient to palliative care/hospice. We will bring oncology and palliative care on board. Patient is nothing by mouth and NG tube has been ordered. As patient with no longer to be a would take by mouth pain medications, will increase her Dilaudid dosage. She states her pain is currently 10 out of 10; will initiate Dilaudid ENGINE SETTER pump as hourly dosing can be difficult to obtain and will give a better understanding of what the patient needs to control her pain. Appreciate palliative care recommendations as well regarding pain management. I verified with the patient that she does want to remain a full code at this time that she is aware that further discussion will follow-up the next several days. ITS Impressions Abdomen/Pelvis CT 04/25/16 11:40 IMPRESSION: Findings of acute small bowel obstruction with transition point in the pelvis, likely secondary to neoplastic mass which tethers small bowel loops near a prior anastomotic site Focal mass in the lower abdominal mesentery, likely related to the patient's history of carcinoma. Mildly enlarged metastatic mesenteric lymph nodes are also seen. Triangular shaped collection of fluid and gas is seen in the pelvis, posterior to the right ureteral stent, measuring 2.7 x 2.7 cm. This may be within the vagina or represent a small abscess Bilateral ureteral stents. There is moderate right-sided hydronephrosis. There is bladder wall thickening. . Correlate with urinalysis to exclude infection. D/ / Mazin Goldsmith MD / Mazin Goldsmith MD Interpreting Provider: Mazin Goldsmith MD
[2016-04-25] MEDS ORDERED: *HR* HYDROmorphone 20 MG/20 ML PCA IVC PRN (15:44)
--- NOTE | 2016-04-25 17:33 | Electrocardiograph Report ---
[facility] Test Date: 2016-04-24 Pat Name: Erum Aj Department: 102 Room: 3B21 Gender: F Internal Review And Audit Compliance: Rebeca : 1970 Requested By: Gilberto Martinez Order Number: [id number] Reading MD: Ger Tai DO Measurements Intervals [place] Rate: 97 P: 52 NC: 149 QRS: -7 QRSD: 86 T: 15 QT: 359 QTc: 413 Interpretive Statements Sinus rhythm Possible left ventricular hypertrophy Electronically Signed On 04-25-16 17:32:18 EST by Ger Tai DO
[2016-04-25] MEDS: *HR* LORazepam 1 MG TABLET PO PRN (20:59)
[2016-04-25] MEDS: Gabapentin 300 MG CAPSULE PO SCH (20:59)
[2016-04-25] MEDS: *HR* Promethazine 25 MG/ML VIAL IVP PRN (21:04)
[2016-04-25] MEDS: Loratadine 10 MG TABLET PO SCH (21:20)
[2016-04-26] MEDS: *HR* OxyCODONE ER (12 HR) 20 MG TABLET PO SCH ×4 (03:19→17:16)
[2016-04-26] MEDS: *HR* Promethazine 25 MG/ML VIAL IVP PRN ×3 (03:53→20:43)
[2016-04-26 04:07] LABS: Basophils % 0.2 %; Eosinophils # 0.3 K/mcL (0.0-0.6); Eosinophils % 4.9 %; Hemoglobin 6.8 g/dL (11.5-15.4); Immature Granulocytes % 0.6 % (0-4); Lymphocytes # 0.4 K/mcL (0.6-4.6); Lymphocytes % 8.2 %; Mean Corpuscular HGB Conc 32.4 g/dL (31.6-35.5); Mean Corpuscular Hemoglobin 31.5 pg (28.0-33.3); Mean Corpuscular Volume 97.2 fL (83.0-100.0); Mean Platelet Volume 8.8 fL (9.4-12.4); Monocytes # 0.2 K/mcL (0.0-1.3); Monocytes % 3.7 %; Neutrophils # 4.2 K/mcL (1.6-8.9); Red Blood Count 2.16 M/mcL (3.82-4.97); Red Cell Distribution Width 17.1 % (11.5-14.5); Segmented Neutrophils % 82.4 %
[2016-04-26 04:10] LABS: Platelet Count 96 K/mcL (140-400)
[2016-04-26 04:20] LABS: BUN/Creatinine Ratio 10 (6-26); Blood Urea Nitrogen 8 mg/dL (7-20); Calcium 7.6 mg/dL (8.6-10.8); Carbon Dioxide 26 mEq/L (19-29); Chloride 101 mEq/L (98-109); Glucose 90 mg/dL (70-99); Osmolality,Calculated 282 (280-300); Potassium 3.5 mEq/L (3.5-4.5); Sodium 137 mEq/L (136-145); eGFR For African Americans > 60 (> 60); eGFR For Non-African Americans > 60 (> 60)
[2016-04-26 04:21] LABS: Magnesium < 0.7 mg/dL (1.6-2.6)
[2016-04-26] MEDS: *HR* Enoxaparin 40 MG/0.4 ML SYRINGE SQ SCH (06:03)
[2016-04-26] MEDS: Ringers Solution, Lactated 1,000 ML IVC SCH ×2 (09:09→23:51)
[2016-04-26] MEDS ORDERED: *HR* HYDROmorphone 20 MG/20 ML PCA IVC PRN (10:56)
--- NOTE | 2016-04-26 11:00 | Oncology Inp Consult Note ---
Date of Encounter: 04/26/16 Time of Encounter: 10:59 - Data of Consult Patient: known to practice within the last 3 years Consult date: 04/26/16 Requesting Physician: Leanna Thornton Primary Care Provider: Justin Morgan CNP - Consult Narrative Reason for consult: Metastatic cervical cancer. History of present illness: Ms. Aj is a 45 year old female patient of [default value] who has established oncologic care for [default value] [default value] is followed by my partner [default value] and was last seen in the office[default value]. I have summarized patient's heme/onc background below based on [default value]'s most recent office report. Patient is currently hospitalized for[default value] Oncology is consulted re:[default value] Rest of past medical, surgical, family, social history detailed below and verified with patient today. Review of systems: 12 point review of systems performed with patient and positive findings noted in history of present illness. All other systems are negative: Physical exam: Results: Radiographic studies: I personally reviewed and interpreted patient's most recent imaging studies dated [default value]. I discussed the findings with the patient today. Impression/recommendations: We'll follow the patient along side you during this hospitalization but please do not hesitate to call regarding interval hematologic questions as they arise. Thank you for your excellent ongoing care for allowing us to see [default value ] while in-house. This report was created using voice recognition software and may contain errors. It was signed but not edited to expedite communication. Past Med Surg Social Fam HX - Past Medical History Medical history: arthritis, cancer, GERD, hypertension, malignancy, thyroid disease, other Psychiatric history: anxiety, other - Past Surgical History Surgical History: , cancer surgery, colostomy, orthopedic, other, other - Social History Smoking Status: Never smoker Smokeless Tobacco Status: No Alcohol use: none Drug use: none - Family History Mother Adopted: No Family Member Ethnicity: Non- Living Status: Hx Family Cardiac Disorders: Yes (HTN) Hx Family Cancer: Yes Father Hx Family Cancer: Yes (head/neck cancer) Daughter Hx Family GI Disorders: Yes (crohn disease) Medications and Allergies Bisoprolol/HCTZ 5/6.25 [Ziac 5/6.25] 1 tab PO DAILY 01/11/16 [History] Prochlorperazine Maleate [Compazine] 10 mg PO Q6HR PRN #90 tablet 02/15/16 [Rx] Magic Mouthwash 10 ml PO TID PRN #260 ml 02/18/16 [Rx] Ondansetron ODT [Zofran ODT] 4 mg SL Q4HR PRN #60 tab.rapdis 03/22/16 [Rx] Amitriptyline [Elavil] 50 mg PO HS #90 tablet 03/29/16 [Rx] Gabapentin [Neurontin] 300 mg PO HS #30 capsule 03/29/16 [Rx] LORazepam [Ativan] 1 mg PO Q6H PRN #60 tablet 03/29/16 [Rx] Pramipexole Di-HCl [Pramipexole Dihydrochloride] 0.125 mg PO HS #90 tablet 03/29 [Rx] Granisetron [Sancuso] 1 patch TD DAILY 04/10/16 [History] Levothyroxine [Synthroid] 88 mcg PO DAILY 04/10/16 [History] Omeprazole [PriLOSEC] 40 mg PO DAILY #30 cap 04/11/16 [Rx] Docusate [Colace] 100 mg PO BID PRN #0 capsule 04/16/16 [Rx] Allergies No Known Allergies Allergy (Verified 10/07/15 21:28) Oncology - Exam - Constitutional Vitals: Temp Pulse Resp BP Pulse Ox 98.5 F 98 16 127/81 93 L 04/25/16 23:19 04/26/16 06:48 04/26/16 06:48 04/26/16 06:48 04/26/16 06:48 Oncology - Results - Labs Labs: Short CBC 04/26/16 Range/Units 03:50 WBC 5.1 (4.3-11.1) K/mcL Hgb 6.8 L (11.5-15.4) g/dL Hct 21.0 L (35.3-44.9) % Plt Count 96 L (140-400) K/mcL Neutrophils # 4.2 (1.6-8.9) K/mcL BMP 04/26/16 03:50 Sodium 137 Potassium 3.5 Chloride 101 Carbon Dioxide 26 BUN 8 Creatinine 0.83 Glucose 90 Calcium 7.6 L Consult Discharge Plan - Plan Referrals: Justin Morgan, [facility] [Primary Care Provider] -
--- NOTE | 2016-04-26 11:24 | Oncology Inp Consult Note ---
Date of Encounter: 04/26/16 Time of Encounter: 16:30 Assessment and Plan (1) Intestinal obstruction Status: Acute Assessment and plan: Patient is asymptomatic. Mass noted on the right side of the uterus on current CT seems to have been present at the time of diagnosis and hence is not new. Abdominal pain is chronic and is controlled with pain meds. Recommend supportive care, and f/u with oncologist Dr Bernal after current hospitalization. Qualifiers: Qualified Code(s): K56.60 - Unspecified intestinal obstruction (2) Cervix cancer Status: Chronic Assessment and plan: Metastatic, had been on carboplatin and paclitaxel in the past which has been interrupted for radiation to a pelvic mass which was causing bleeding. Recommend completion of RT and we will resume chemotherapy in the office. Agree with palliative care evaluation. Qualifiers: Malignant neoplasm of cervix location: unspecified location Qualified Code( s): C53.9 - Malignant neoplasm of cervix uteri, unspecified (3) Anemia Status: Chronic Assessment and plan: Secondary to chemotherapy, blood loss and chronic inflammation. She also has transfusional iron overload. She had been getting Aranesp every 3 weeks as an outpatient. Qualifiers: Anemia type: iron deficiency Iron deficiency anemia type: unspecified iron deficiency Qualified Code(s): D50.9 - Iron deficiency anemia, unspecified - Data of Consult Patient: known to practice within the last 3 years Requesting Physician: Leanna Thornton Primary Care Provider: Justin Morgan CNP - Consult Narrative Reason for consult: Metastatic cervical cancer, intestinal obstruction History of present illness: Ms. Aj is a 45 year old female with a history of cervical cancer, diagnosed in August 2015 when she presented with anemia due to vaginal bleeding and a CT A/P showed a 3.1 cm uterine fundal mass. Biopsy of the cervix as well as the fundal mass were positive for squamous cell carcinoma. On PET CT, she had a hypermetabolic cervix, hypermetabolic uterine fundal mass and bilateral external iliac lymph nodes concerning for metastases. She started chemoradiation with cisplatin in September 2015 but treatment was stopped after a week due to symptomatic infiltration of the small intestine and peritoneum. She had laparoscopy in October 2015 at [facility], which showed extensive abdominal adhesions. She had a right hemicolectomy with creation of colostomy and Karen pouch, small intestinal resection and anastomosis, and resection of the omentum and adhesiolysis. 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 She started chemotherapy in November 2015 with carboplatin and paclitaxel. In March 2016, she started radiation to a bleeding pelvic mass. Chemotherapy is currently on hold. She is now admitted to the hospital with extreme weakness, for syncopal episodes at home, lower abdominal pain and urinary frequency. CT of the abdomen and pelvis is read as showing multiple dilated loops of small intestine in the right upper quadrant, consistent with bowel obstruction, with a soft tissue mass inseparable from the uterus on the right, measuring 6.9 x 5 cm and tethering the loops of small bowel. Oncology was consulted to evaluate the patient's condition. On my interview, the patient reports that she has chronic abdominal pain, it is currently 6 out of 10. She reports weight loss and her ECOG performance status seems to be 2-3. The main limiting factor preventing her from being active is fatigue and generalized weakness. She reports that she has been getting radiation every day. She currently lives with a friend. Past Med Surg Social Fam HX - Past Medical History Medical history: arthritis, cancer, GERD, hypertension, malignancy, thyroid disease, other Psychiatric history: anxiety, other - Past Surgical History Surgical History: , cancer surgery, colostomy, orthopedic, other, other - Social History Smoking Status: Never smoker Smokeless Tobacco Status: No Alcohol use: none Drug use: none - Family History Mother Adopted: No Family Member Ethnicity: Non- Living Status: Hx Family Cardiac Disorders: Yes (HTN) Hx Family Cancer: Yes Father Hx Family Cancer: Yes (head/neck cancer) Daughter Hx Family GI Disorders: Yes (crohn disease) Medications and Allergies Bisoprolol/HCTZ 5/6.25 [Ziac 5/6.25] 1 tab PO DAILY 01/11/16 [History] Prochlorperazine Maleate [Compazine] 10 mg PO Q6HR PRN #90 tablet 02/15/16 [Rx] Magic Mouthwash 10 ml PO TID PRN #260 ml 02/18/16 [Rx] Ondansetron ODT [Zofran ODT] 4 mg SL Q4HR PRN #60 tab.rapdis 03/22/16 [Rx] Amitriptyline [Elavil] 50 mg PO HS #90 tablet 03/29/16 [Rx] Gabapentin [Neurontin] 300 mg PO HS #30 capsule 03/29/16 [Rx] LORazepam [Ativan] 1 mg PO Q6H PRN #60 tablet 03/29/16 [Rx] Pramipexole Di-HCl [Pramipexole Dihydrochloride] 0.125 mg PO HS #90 tablet 03/29 [Rx] Granisetron [Sancuso] 1 patch TD DAILY 04/10/16 [History] Levothyroxine [Synthroid] 88 mcg PO DAILY 04/10/16 [History] Omeprazole [PriLOSEC] 40 mg PO DAILY #30 cap 04/11/16 [Rx] Docusate [Colace] 100 mg PO BID PRN #0 capsule 04/16/16 [Rx] Allergies No Known Allergies Allergy (Verified 10/07/15 21:28) Constitutional: Present: fatigue, frequent falls, lethargy, malaise, weakness, weight loss Eyes: Present: blurry vision Cardiovascular: Present: dyspnea, palpitations Respiratory: Present: dyspnea Gastrointestinal: Present: abdominal pain, nausea Neurological: Present: disequilibrium, dizziness, frequent falls, headache(s), lack of coordination Oncology - Exam - Constitutional Vitals: Temp Pulse Resp BP Pulse Ox 98.5 F 98 16 127/81 93 L 04/25/16 23:19 04/26/16 06:48 04/26/16 06:48 04/26/16 06:48 04/26/16 06:48 General appearance: average body habitus, mild distress (appears chronically ill , alopecia) - Head Head exam: Present: atraumatic, normocephalic - Eye Eye exam: Present: EOMI, sclera anicteric Pupils: Present: PERRL - ENT ENT exam: Present: mucous membranes dry, normal oropharynx - Neck Neck exam: Present: full ROM - Cardiovascular Cardiovascular exam: Present: RRR, +S1, +S2, tachycardia - GI/Abdominal GI/Abdominal exam: Present: guarding, hyperactive bowel sounds, soft. Absent: diminished bowel sounds - Extremities Exam Extremities exam: Present: full ROM, normal capillary refill, normal inspection Oncology - Results - Labs Labs: Short CBC 04/26/16 Range/Units 03:50 WBC 5.1 (4.3-11.1) K/mcL Hgb 6.8 L (11.5-15.4) g/dL Hct 21.0 L (35.3-44.9) % Plt Count 96 L (140-400) K/mcL Neutrophils # 4.2 (1.6-8.9) K/mcL [facility] 04/26/16 03:50 Sodium 137 Potassium 3.5 Chloride 101 Carbon Dioxide 26 BUN 8 Creatinine 0.83 Glucose 90 Calcium 7.6 L Consult Discharge Plan - Plan Referrals: Justin Morgan, NETWORK CONTROL OPERATORS SUPERVISOR [Primary Care Provider] -
--- NOTE | 2016-04-26 12:00 | Palliative - Consult Note ---
Date of Encounter: 04/26/16 Time of Encounter: 10:30 - Assessment and Plan (1) Cancer associated pain Current Visit: Yes Status: Acute Assessment and plan: OARRS reviewed, and patient verified information. Current home dose: * OxyCONTIN 45mg every 12 hours scheduled * oxycodone 10mg as needed~average 2-3 doses per day Will change current frequency of oxyCONTIN to 40mg every 12 hours to equal home dosing. Next dose to be at 1800 (given the patient has received two 20mg doses already this morning) Increase Dilaudid PSYCH THERAPIST dose to 0.3mg every 10min PRN per PSYCH THERAPIST. Discussed medication changes with hospitalist. (2) Goals of care, counseling/discussion Current Visit: Yes Status: Acute (3) Constipation Current Visit: Yes Status: Acute Assessment and plan: Monitor for constipation. Last colostomy output was yesterday. Small bowel obstruction per CT scan, monitor. Qualifiers: Constipation type: drug induced constipation Qualified Code(s): K59.03 - Drug induced constipation (4) Generalized weakness Current Visit: Yes Status: Acute Assessment and plan: activity as tolerated. NPO at this time except ice chips and meds. (5) Intestinal obstruction Current Visit: Yes Status: Acute Assessment and plan: Intestional obstruction per CT scan likely secondary to mass that tethers small bowel loops near a prior anastamotic site. Ms. Aj refused the NG tube. She denies nausea. Surgery consulted. Qualifiers: Intestinal obstruction type: unspecified Qualified Code(s): K56.60 - Unspecified intestinal obstruction Palliative-CN HPI - Data of Consult Patient: new to practice Consult date: 04/26/16 Requesting Physician: Leanna Thornton Primary Care Provider: Justin Morgan CNP - Consult Narrative Palliative Care/Comfort Measures: Palliative care Reason for consult: Goals of care History of present illness: Ms. Aj is a 45 year old female presenting to [facility] with a near syncopal episode. Ms. Aj reports feeling "run down". Her appetite has been poor due to nausea. Work-up revealed a UTI wth a small bowel obstruction. She was diagnosed with metastatic cervical cancer last year and has been seeking care/ treatment at the [facility]. She had surgical interventions at [facility]. Ms. Aj has had chemotherapy (most recently carboplatin + paclitaxel), but it is on hold due to daily XRT with Dr. Diaz. She has had multiple hospitalizations for abdominal pain, including hydronephrosis with ureteral stent recently. The palliative care team was consulted to assist with goals of care given clinical picture and poor prodnosis. Ms. Aj rates her average abdominal pain 6/10 in the hospital, but it was as high as 9/10 last night. She has the hydromorphone PSYCH THERAPIST with a PSYCH THERAPIST dose of 0.2mg every 10 min. She has used a total of 4.6mg since PSYCH THERAPIST was started. Ms. Aj describes the pain as a sharp/stabbing pain located in the mid- abdomen area. This is not associated with other symptoms such as nausea. Overall, Ms. Aj reports stable weights since last year. She denies dysphagia/thrush, muscle weakness. She admits to depression/anxiety which has improved since starting Elavil. Ms. Aj has difficulty with sleep, she is able to fall asleep, but wakes frequently. Her home support is provided by her daughter and son-in-law. Fatigue has been an issue. She finds abel in spending time with her grandchildren, but has difficulty playing and interacting with them due to the fatigue. CC: Leanna Thornton Past Med Surg Social Fam HX - Past Medical History Attestation: Yes The following information was validated with the patient. Source: patient, old records reviewed Medical history: arthritis, cancer (metastatic cervical CA), GERD, hypertension , malignancy, thyroid disease, other (anemia, hydronephrosis) Psychiatric history: anxiety, other - Past Surgical History Surgical History: , cancer surgery, colectomy, colostomy (Left hemicolectomy with colostomy and lysis of adhesions, ), orthopedic, other (knee surgery X4), other - Social History Smoking Status: Never smoker Smokeless Tobacco Status: No Alcohol use: none Drug use: none Current living situation: Home, With Family Activity Level: Independent ambulation - Family History Mother Adopted: No Family Member Ethnicity: Non- Living Status: Hx Family Cardiac Disorders: Yes (HTN) Hx Family Cancer: Yes Father Hx Family Cancer: Yes (head/neck cancer) Daughter Hx Family GI Disorders: Yes (crohn disease) Medications and Allergies Bisoprolol/HCTZ 5/6.25 [Ziac 5/6.25] 1 tab PO DAILY 01/11/16 [History] Prochlorperazine Maleate [Compazine] 10 mg PO Q6HR PRN #90 tablet 02/15/16 [Rx] Magic Mouthwash 10 ml PO TID PRN #260 ml 02/18/16 [Rx] Ondansetron ODT [Zofran ODT] 4 mg SL Q4HR PRN #60 tab.rapdis 03/22/16 [Rx] Amitriptyline [Elavil] 50 mg PO HS #90 tablet 03/29/16 [Rx] Gabapentin [Neurontin] 300 mg PO HS #30 capsule 03/29/16 [Rx] LORazepam [Ativan] 1 mg PO Q6H PRN #60 tablet 03/29/16 [Rx] Pramipexole Di-HCl [Pramipexole Dihydrochloride] 0.125 mg PO HS #90 tablet 03/29 [Rx] Granisetron [Sancuso] 1 patch TD DAILY 04/10/16 [History] Levothyroxine [Synthroid] 88 mcg PO DAILY 04/10/16 [History] Omeprazole [PriLOSEC] 40 mg PO DAILY #30 cap 04/11/16 [Rx] Docusate [Colace] 100 mg PO BID PRN #0 capsule 04/16/16 [Rx] Allergies No Known Allergies Allergy (Verified 10/07/15 21:28) - Constitutional Constitutional ROS PAL: decreased appetite, fatigue, no chills, no fever(s), no weight loss - EENT Eyes: no change in vision Ears: no decreased hearing Ears, nose, mouth, throat: sore throat, no sinus pain, no dysphagia, no nasal congestion, no nasal discharge, no throat swelling - Cardiovascular Cardiovascular ROS: no chest pain, no chest pain with activity, no dyspnea on exertion, no edema, no irregular heart rhythm, no leg edema - Respiratory Respiratory: no cough, no dyspnea, no dyspnea on exertion, no chest congestion - Gastrointestinal Gastrointestinal: abdominal pain, no constipation, no diarrhea, no nausea, no vomiting - Genitourinary Palliative ROS female: no abnormal vaginal bleeding, no difficulty voiding - Musculoskeletal Musculoskeletal ROS IM: muscle weakness - Integumentary ROS Integumentary: no skin ulcer, no sores, no wounds - Neurological Neurological ROS: weakness, no confusion, no focal weakness, no lack of coordination, no numbness - Psychiatric Psychiatric general PM: anxiety, depression Palliative Care-Exam - Constitutional Vitals: Temp Pulse Resp BP Pulse Ox 98.9 F 84 18 133/87 95 04/26/16 11:10 04/26/16 11:10 04/26/16 11:10 04/26/16 11:10 04/26/16 11:10 General appearance: Present: average body habitus, mild distress (appears chronically ill, alopecia) Internal Medicine - CN: Reslt - Labs CBC & Chem 7: 04/26/16 03:50 04/26/16 03:50 Labs: Short CBC 04/26/16 Range/Units 03:50 WBC 5.1 (4.3-11.1) K/mcL Hgb 6.8 L (11.5-15.4) g/dL Hct 21.0 L (35.3-44.9) % Plt Count 96 L (140-400) K/mcL Neutrophils # 4.2 (1.6-8.9) K/mcL BMP 04/26/16 03:50 Sodium 137 Potassium 3.5 Chloride 101 Carbon Dioxide 26 BUN 8 Creatinine 0.83 Glucose 90 Calcium 7.6 L - ABG Interpretation ABG results: PT/INR, D-dimer PT 15.6 Seconds (9.4-12.1) H 04/24/16 11:53 Consult Discharge Plan - Plan Referrals: Justin Morgan CNP [Primary Care Provider] - Palliative Quality Palliative Quality: Screen for Code Status: Yes, Screen for Goals of Care: Yes, Screen for Pain: Yes, If Pain Regimen Started, Initiate Bowel Regimen: Yes, Screen for Nausea/Vomitting: Yes
[2016-04-26] MEDS ORDERED: 0.9 % Sodium Chloride 250 ML ONE ×2 (12:09→17:07)
--- NOTE | 2016-04-26 14:26 | Oncology Inp Progress Note ---
Date of Encounter: 04/26/16 Time of Encounter: 14:00 (1) Intestinal obstruction Current Visit: Yes Status: Acute Assessment and plan: The abdominal pain seems to be at baseline, however she has not had a BM in more than 24 hrs, though she is passing gas. Mass noted on the right side of the uterus on current CT seems to have been present at the time of diagnosis, it is not entirely clear if this had decreased in size since starting treatment. Bowel sounds are hypoactive. May try advancing diet and see if she passes a BM, if not agree with transfer to [facility]. Qualifiers: Intestinal obstruction type: unspecified Qualified Code(s): K56.60 - Unspecified intestinal obstruction (2) Cervix cancer Current Visit: No Status: Chronic Assessment and plan: Metastatic, had been on carboplatin and paclitaxel in the past which has been interrupted for radiation to a pelvic mass which was causing bleeding. We will resume chemotherapy in the office when she is medically stable. Agree with palliative care evaluation and SALES TRAINING REPRESENTATIVE. Qualifiers: Malignant neoplasm of cervix location: unspecified location Qualified Code( s): C53.9 - Malignant neoplasm of cervix uteri, unspecified (3) Anemia Current Visit: No Status: Chronic Assessment and plan: Secondary to chemotherapy, blood loss and chronic inflammation. She had been getting Aranesp every 3 weeks as an outpatient. Recieved 2 U Blood today. Qualifiers: Anemia type: iron deficiency Iron deficiency anemia type: unspecified iron deficiency Qualified Code(s): D50.9 - Iron deficiency anemia, unspecified Oncology: Subj Interval history: The patient reports that she had pain of 10/10 this morning but it is better after initiation of SALES TRAINING REPRESENTATIVE. Reports she had lose BM on the night of 04/24 and has not had any BM since then, but she is passing gas. She was NPO yesterday and today. Family is at bedside. She is recieving 2 U PRBC. - Constitutional Vitals: Vital Signs Temp Pulse Resp BP Pulse Ox 04/26/16 13:06 98.1 F 93 16 121/80 93 L 04/26/16 12:51 98.3 F 96 16 153/89 98 04/26/16 11:10 98.9 F 84 18 133/87 95 04/26/16 06:48 98 16 127/81 93 L 04/25/16 23:19 98.5 F 89 18 112/77 92 L 04/25/16 19:20 98.7 F 96 18 120/80 92 L Intake and Output 04/26/16 04/26/16 04/26/16 00:59 08:59 16:59 Intake Total 1000 / 1000 0 / 0 1000 / 1000 Output Total 550 / 550 600 / 600 Balance 450 / 450 -600 / -600 1000 / 1000 Intake: IV Fluids 1000 / 1000 1000 / 1000 Lactated Ringers 1,000 ML 1000 / 1000 1000 / 1000 @ 100 mls/hr IVC .Q10H PATRICE Rx#:[id number] Oral 0 / 0 Blood Product 0 / 0 Rbcs Leuko Poor As-1 0 / 0 Unit [id number] Output: Urine 550 / 550 600 / 600 Other: Meal NPO Weight 67.086 kg Patient Weight 04/27/16 00:59 Weight 67.086 kg General appearance: average body habitus - Head Head exam: Present: atraumatic, normocephalic - Eye Eye exam: Present: EOMI, sclera anicteric Pupils: Present: PERRL - ENT ENT exam: Present: mucous membranes dry, normal oropharynx - Neck Neck exam: Present: full ROM - Respiratory Respiratory exam: Present: decreased breath sounds - Cardiovascular Cardiovascular exam: Present: RRR, +S1, +S2 - GI/Abdominal GI/Abdominal exam: Present: distended, guarding, tenderness (moderate tenderness in the suprapubic area. ) - Extremities Exam Extremities exam: Present: normal capillary refill, normal inspection Oncology: Obj Data - Labs CBC & Chem 7: 04/26/16 03:50 04/26/16 03:50 Labs: Laboratory Results - last 24 hr 04/26/16 04/26/16 04/26/16 03:50 03:50 10:30 WBC 5.1 RBC 2.16 L Hgb 6.8 L Hct 21.0 L MCV 97.2 MCH 31.5 MCHC 32.4 RDW 17.1 H Plt Count 96 L MPV 8.8 L Immature Gran % 0.6 Seg Neutrophils % 82.4 Lymphocytes % 8.2 Monocytes % 3.7 Eosinophils % 4.9 Basophils % 0.2 Neutrophils # 4.2 Lymphocytes # 0.4 L Monocytes # 0.2 Eosinophils # 0.3 Basophils # 0.0 Immature Plt Fraction 1.0 L Sodium 137 Potassium 3.5 Chloride 101 Carbon Dioxide 26 BUN 8 Creatinine 0.83 Est GFR ( Amer) > 60 Est GFR (Non-Af Amer) > 60 BUN/Creatinine Ratio 10 Glucose 90 Calculated Osmolality 282 Calcium 7.6 L Magnesium < 0.7 L Blood Type A POSITIVE Antibody Screen NEGATIVE Crossmatch See Detail - ABG Interpretation ABG results: PT/INR, D-dimer PT 15.6 Seconds (9.4-12.1) H 04/24/16 11:53 Consult Discharge Plan - Plan Referrals: Justin Morgan, MATTRESS INSPECTOR [Primary Care Provider] -
--- NOTE | 2016-04-26 14:46 | Internal Med Progress Note ---
Date of Encounter: 04/26/16 Time of Encounter: 09:15 (and 1345) - Assessment and plan (1) SBO (small bowel obstruction) Current Visit: Yes Status: Acute Assessment and plan: Abdominal pelvic CT yesterday consistent with small bowel obstruction secondary to neoplastic mass. Patient was made nothing by mouth but she refuses to have an NG tube placed. Oncology on board. Initial plan was to transfer the patient back to [facility] for surgical intervention however as the patient has been asymptomatic regarding possible bowel obstruction, we will start her out on a full liquid diet and evaluate her response. If she becomes symptomatic, we will transfer her to [facility] at that time. ITS Impressions Abdomen/Pelvis CT 04/25/16 11:40 IMPRESSION: Findings of acute small bowel obstruction with transition point in the pelvis, likely secondary to neoplastic mass which tethers small bowel loops near a prior anastomotic site Focal mass in the lower abdominal mesentery, likely related to the patient's history of carcinoma. Mildly enlarged metastatic mesenteric lymph nodes are also seen. Triangular shaped collection of fluid and gas is seen in the pelvis, posterior to the right ureteral stent, measuring 2.7 x 2.7 cm. This may be within the vagina or represent a small abscess Bilateral ureteral stents. There is moderate right-sided hydronephrosis. There is bladder wall thickening. . Correlate with urinalysis to exclude infection. D/ / Mazin Goldsmith MD / Mazin Goldsmith MD Interpreting Provider: Mazin Goldsmith MD (2) Near syncope Current Visit: Yes Status: Acute Assessment and plan: Abdominal CT consistent with small bowel obstruction and the patient was made nothing by mouth and an NG tube was ordered however the patient refused NG tube placement. Blood cultures negative. Urine culture grossly met and unable to be interpreted, will continue ceftriaxone. Patient's anemia is also worsened and she is being transfused 2 units of packed red blood cells. Oncology and palliative care on board. OT and PT are also on board. 04/25/16 Likely secondary to urinary tract infection. Chest x-ray negative. Head CT negative. Lumbar and thoracic CTs both negative. Hemoglobin stable. Hypokalemia resolved. Urinary tract infection noted, continue ceftriaxone. Tox screen positive for opiates only. OT and PT consultations pending. Abdominal CT also ordered at this time. She is alert and oriented 3 and complains of generalized abdominal pain. ITS Impressions Chest X-Ray 04/24/16 11:09 IMPRESSION: No acute findings. D/ / Raina Chandler MD / Raina Chandler MD Interpreting Provider: Raina Chandler MD Head CT 04/24/16 11:11 IMPRESSION: No acute intracranial abnormality. D/ / Josemanuel Nava MD / Josemanuel Nava MD Interpreting Provider: Josemanuel Nava MD Lumbar Spine CT 04/24/16 11:19 IMPRESSION: No acute fracture. D/ / Raina Chandler MD / Raina Chandler MD Interpreting Provider: Raina Chandler MD Thoracic Spine CT 04/24/16 11:20 IMPRESSION: No definite osteolytic or osteoblastic metastatic disease in the thoracic spine. Degenerative cervical spondylosis and degenerative disc disease at T11-T12. D/ / Amarjit Salomon MD / Amarjit Salomon MD Interpreting Provider: Amarjit Salomon MD (3) Intractable pain Current Visit: No Status: Acute Assessment and plan: Pain is currently controlled on Dilaudid pump and by mouth oxycodone. Palliative care on board and are adjusting her pain medications. 04/25/16 Patient stating her pain is currently uncontrolled. Patient stating she takes oxycodone 15 mg at home. She states she spoke to take them every 12 and she has been taking them every 6 because they are not lasting. However it appears as if she takes 45 mg of oxycodone every 12 hours at home with 10 mg every 4 hours for breakthrough pain. This has been continued, will continue IV Dilaudid. She may need to transition to MS Contin, will continue to monitor. We will continue to address her pain. (4) UTI (urinary tract infection) Current Visit: No Status: Acute Assessment and plan: Abnormal urinalysis, culture grossly mixed and unable to be interpreted. Continue ceftriaxone. Qualifiers: Urinary tract infection type: site unspecified Hematuria presence: without hematuria Qualified Code(s): N39.0 - Urinary tract infection, site not specified (5) Generalized abdominal pain Current Visit: Yes Status: Acute Assessment and plan: Abdominal CT revealing small bowel obstruction likely secondary to neoplastic mass. Imaging further evaluated per oncology, plan is to advance the patient's diet and see how she tolerates. If she starts to display symptoms consistent with bowel obstruction, will likely transfer to [facility] at that time. Spoke to [facility] surgical team Dr. Patel who states the patient was just operated on in October at [facility] and she would need to return for further treatment if indicated. ITS Impressions Abdomen/Pelvis CT 04/25/16 11:40 IMPRESSION: Findings of acute small bowel obstruction with transition point in the pelvis, likely secondary to neoplastic mass which tethers small bowel loops near a prior anastomotic site Focal mass in the lower abdominal mesentery, likely related to the patient's history of carcinoma. Mildly enlarged metastatic mesenteric lymph nodes are also seen. Triangular shaped collection of fluid and gas is seen in the pelvis, posterior to the right ureteral stent, measuring 2.7 x 2.7 cm. This may be within the vagina or represent a small abscess Bilateral ureteral stents. There is moderate right-sided hydronephrosis. There is bladder wall thickening. . Correlate with urinalysis to exclude infection. D/ / Mazin Goldsmith MD / Mazin Goldsmith MD Interpreting Provider: Mazin Goldsmith MD (6) Cervical cancer Current Visit: Yes Status: Chronic Assessment and plan: Patient stating she is currently in radiation since July. Oncology onboard. Qualifiers: Malignant neoplasm of cervix location: unspecified location Qualified Code( s): C53.9 - Malignant neoplasm of cervix uteri, unspecified (7) Generalized weakness Current Visit: Yes Status: Acute Assessment and plan: Patient complains of generalized weakness. Likely secondary to urinary tract infection, anemia and advanced metastatic cancer. OT and PT on board awaiting their recommendations. (8) Hypokalemia Current Visit: Yes Status: Resolved (9) Anemia Current Visit: No Status: Chronic Assessment and plan: Decrease overnight, now less than 7 and the patient is symptomatic with weakness. We will transfuse 2 units of packed red blood cells. 04/25/16 Currently stable and at the low end of her normal. We will continue to trend and transfuse if indicated. On 04/19/16, patient's ferritin levels were grossly elevated; no indication for iron supplementation. B12 at that time normal, folate normal, TSH checked in March also normal. Likely secondary to ongoing cancer treatment. Qualifiers: Anemia type: unspecified type Qualified Code(s): D64.9 - Anemia, unspecified (10) DVT prophylaxis Current Visit: No Status: Acute Assessment and plan: Subcutaneous Lovenox (11) GERD (gastroesophageal reflux disease) Current Visit: No Status: Chronic Assessment and plan: Denies current symptoms, continue omeprazole Qualifiers: Esophagitis presence: esophagitis presence not specified Qualified Code(s) : K21.9 - Gastro-esophageal reflux disease without esophagitis (12) HTN (hypertension) Current Visit: No Status: Chronic Assessment and plan: Controlled, will continue to trend and adjust medications as indicated. Qualifiers: Hypertension type: essential hypertension Qualified Code(s): I10 - Essential (primary) hypertension (13) Intractable vomiting with nausea Current Visit: No Status: Chronic Assessment and plan: She was able to eat half of her breakfast morning before she became nauseated yesterday. No vomiting. After her CT scan, she was made nothing by mouth. She refused NG tube placement. In further conversation with oncology team, will advance her diet as she tolerates as she has been asymptomatic regarding symptoms of bowel obstruction. We will continue Zofran and Phenergan Qualifiers: Vomiting type: cyclical vomiting Qualified Code(s): G43.A1 - Cyclical vomiting, intractable (14) Thrombocytopenia Current Visit: No Status: Chronic Assessment and plan: Chronic, currently consistent with her baseline. No signs of active bleeding. Transfusing today (15) Colostomy in place Current Visit: No Status: Chronic (16) Hypothyroidism Current Visit: No Status: Chronic Assessment and plan: TSH checked last month, normal Qualifiers: Hypothyroidism type: acquired Qualified Code(s): E03.9 - Hypothyroidism, unspecified (17) Mood disorder Current Visit: No Status: Chronic Assessment and plan: Mood and affect stable during my interaction with her. Flat affect. (18) Obesity (BMI 30-39.9) Current Visit: No Status: Chronic (19) Restless leg syndrome Current Visit: No Status: Chronic - Subjective Interval history: Patient seen and examined. On examination earlier this morning, patient stating she was starting to feel better in that her pain was starting to be controlled. She was then reexamined earlier on in the afternoon she was conversing with her family. She states that her pain was controlled at that time and she denied other concerns. - Constitutional Vitals: Temp Pulse Resp BP Pulse Ox 98.1 F 93 16 121/80 93 L 04/26/16 13:06 04/26/16 13:06 04/26/16 13:06 04/26/16 13:06 04/26/16 13:06 General appearance: Present: A&O X 3, pleasant, no acute distress, answers questions appropriately - Head Head exam: Present: atraumatic, normocephalic - Eye Eye exam: Present: PERRL, conjuntiva pink, sclera anicteric Pupils: Present: PERRL - Neck Neck exam general surgery: Present: supple, trachea midline. Absent: lymphadenopathy - Respiratory Respiratory exam: Present: CTAB. Absent: accessory muscle use, rales, respiratory distress, rhonchi, wheezes - Cardiovascular Cardiovascular exam: Present: RRR, +S1, +S2. Absent: diastolic murmur, gallop, rubs, systolic murmur - GI/Abdominal GI/Abdominal exam: Present: normal bowel sounds, soft, tenderness (diffuse), no peritoneal signs. Absent: distended - Extremities Exam Extremities exam: Present: warm, radial pulses palpable and symetrical. Absent : calf tenderness, cyanotic, pedal edema - Neurological Exam Neurological exam: Present: alert, CN II-XII intact, oriented X3, no focal deficits, strengths equal and symetr throughout. Absent: pronater drift, facial droop, speech deficit - Skin Skin exam: Present: dry, intact, pallor, warm Internal Medicine: Result - Labs CBC & Chem 7: 04/26/16 03:50 04/26/16 03:50 Labs: Short CBC 04/26/16 Range/Units 03:50 WBC 5.1 (4.3-11.1) K/mcL Hgb 6.8 L (11.5-15.4) g/dL Hct 21.0 L (35.3-44.9) % Plt Count 96 L (140-400) K/mcL Neutrophils # 4.2 (1.6-8.9) K/mcL BMP 04/26/16 03:50 Sodium 137 Potassium 3.5 Chloride 101 Carbon Dioxide 26 BUN 8 Creatinine 0.83 Glucose 90 Calcium 7.6 L - ABG Interpretation ABG results: PT/INR, D-dimer PT 15.6 Seconds (9.4-12.1) H 04/24/16 11:53 Consult Discharge Plan - Plan Referrals: Justin Morgan, FACILITATOR [Primary Care Provider] -
[2016-04-26] MEDS: Gabapentin 300 MG CAPSULE PO SCH (20:39)
[2016-04-26] MEDS: *HR* LORazepam 1 MG TABLET PO PRN (20:39)
[2016-04-26] MEDS: Loratadine 10 MG TABLET PO SCH (20:42)
[2016-04-27 03:48] LABS: Eosinophils # 0.3 K/mcL (0.0-0.6); Eosinophils % 4.7 %; Hematocrit 26.9 % (35.3-44.9); Immature Granulocytes % 0.5 % (0-4); Immature Platelets 1.3 % (1.1-6.1); Lymphocytes # 0.4 K/mcL (0.6-4.6); Lymphocytes % 6.9 %; Mean Corpuscular HGB Conc 34.2 g/dL (31.6-35.5); Mean Corpuscular Volume 90.6 fL (83.0-100.0); Monocytes # 0.2 K/mcL (0.0-1.3); Monocytes % 3.6 %; Neutrophils # 4.9 K/mcL (1.6-8.9); Platelet Count 109 K/mcL (140-400); Red Blood Count 2.97 M/mcL (3.82-4.97); Red Cell Distribution Width 17.7 % (11.5-14.5); Segmented Neutrophils % 84.3 %
[2016-04-27 03:53] LABS: Hemoglobin 9.2 g/dL (11.5-15.4)
[2016-04-27 03:58] LABS: BUN/Creatinine Ratio 11 (6-26); Blood Urea Nitrogen 8 mg/dL (7-20); Calcium 7.7 mg/dL (8.6-10.8); Carbon Dioxide 24 mEq/L (19-29); Chloride 98 mEq/L (98-109); Glucose 99 mg/dL (70-99); Osmolality,Calculated 274 (280-300); Potassium 3.5 mEq/L (3.5-4.5); Sodium 133 mEq/L (136-145); eGFR For African Americans > 60 (> 60); eGFR For Non-African Americans > 60 (> 60)
[2016-04-27 03:59] LABS: Magnesium < 0.7 mg/dL (1.6-2.6)
[2016-04-27] MEDS: *HR* OxyCODONE ER (12 HR) 20 MG TABLET PO SCH ×2 (06:36→17:15)
[2016-04-27] MEDS: *HR* Enoxaparin 40 MG/0.4 ML SYRINGE SQ SCH (06:37)
[2016-04-27] MEDS: *HR* Promethazine 25 MG/ML VIAL IVP PRN ×3 (09:28→21:36)
[2016-04-27] MEDS: Ringers Solution, Lactated 1,000 ML IVC SCH ×2 (10:10→21:11)
--- NOTE | 2016-04-27 10:29 | Palliative Progress Note ---
Date of Encounter: 04/27/16 Time of Encounter: 09:00 - Assessment and plan (1) Cancer associated pain Current Visit: Yes Status: Acute Assessment and plan: OxyCONTIN resumed as home dose yesterday. She reports increased nausea with taking medications, but this is likely due to taking meds on an empty stomach. (2) Goals of care, counseling/discussion Current Visit: Yes Status: Acute Assessment and plan: Goals of care discussion with Ms. Stringer this afternoon. She think advanced directives were completed at [facility] prior to one of her surgeries. In the event that she is unable to speak for herself, she would like her daughter Herminia to be her primary decision maker. We also discussed code status. This is something that her and her daughter have discussed in the past. According to the patient , she would like to remain a FULL code, but would not want to be kept alive by machines if in a vegetative state. Will request advanced directives from [facility]. (3) Constipation Current Visit: Yes Status: Acute Assessment and plan: Continue to monitor. May need to add Miralax to assist with opioid induced constipation. Qualifiers: Constipation type: drug induced constipation Qualified Code(s): K59.03 - Drug induced constipation (4) Generalized weakness Current Visit: Yes Status: Acute Assessment and plan: Up at [facility]. PT/OT following. (5) Intestinal obstruction Current Visit: Yes Status: Acute Assessment and plan: Advance diet as tolerated and monitor symptoms. Qualifiers: Intestinal obstruction type: unspecified Qualified Code(s): K56.60 - Unspecified intestinal obstruction - Time Spent With Patient Total time spent is greater than 50% in coordination of care (as documented) at patient's floor/unit and/or counseling patient: - Subjective Interval history: Ms. Stringer reports feeling better and "more rested" this morning. She has tolerated sips of fluids, but has not had more than that. She reports pain level at 5-6/10, but responds to CLAIM AGENT dosing. Ms. Adame reports her oxyCONTIN gives her an upset stomach and makes her nauseated, but sipping on fluids helps. - Constitutional Vitals: Abnormal lab results RBC 2.97 M/mcL (3.82-4.97) L 04/27/16 03:35 Hgb 9.2 g/dL (11.5-15.4) L D 04/27/16 03:35 Hct 26.9 % (35.3-44.9) L 04/27/16 03:35 RDW 17.7 % (11.5-14.5) H 04/27/16 03:35 Plt Count 109 K/mcL (140-400) L 04/27/16 03:35 MPV 9.0 fL (9.4-12.4) L 04/27/16 03:35 Lymphocytes # 0.4 K/mcL (0.6-4.6) L 04/27/16 03:35 ESR 82 mm/hr (0-15) H 04/24/16 11:53 PT 15.6 Seconds (9.4-12.1) H 04/24/16 11:53 Sodium 133 mEq/L (136-145) L 04/27/16 03:35 Calculated Osmolality 274 (280-300) L 04/27/16 03:35 Calcium 7.7 mg/dL (8.6-10.8) L 04/27/16 03:35 Magnesium < 0.7 mg/dL (1.6-2.6) L 04/27/16 03:35 C-Reactive Protein 155 mg/L (Less than 5) H 04/24/16 11:53 Albumin 2.4 g/dL (3.5-5.0) L 04/24/16 11:53 Globulin 4.5 g/dL (2.4-3.5) H 04/24/16 11:53 Albumin/Globulin Ratio 0.5 (1.1-2.2) L 04/24/16 11:53 Urine Clarity Cloudy (Clear) A 04/24/16 12:07 Urine Protein >=300 mg/dL (Neg-Trace) H 04/24/16 12:07 Urine Blood Large (Negative) H 04/24/16 12:07 Ur Leukocyte Esterase Moderate (Negative) H 04/24/16 12:07 Urine Microscopic RBC 50-100 per hpf (0-3) H 04/24/16 12:07 Urine Microscopic WBC 50-100 per hpf (0-3) H 04/24/16 12:07 Ur Squamous Epith Cells Many per lpf (None-Few) H 04/24/16 12:07 Ur Culture Indicated? YES (NO) A 04/24/16 12:07 Urine Opiates Screen Positive ng/mL (Oubffg=630) H 04/24/16 12:07 General appearance: Present: cooperative, no acute distress - ENT ENT exam: Present: mucous membranes moist - Respiratory Respiratory exam: Absent: accessory muscle use, respiratory distress - Cardiovascular Cardiovascular exam: Present: RRR - GI/Abdominal GI/Abdominal exam: Present: normal bowel sounds, soft, tenderness. Absent: guarding Additional comments: Slight abdominal tenderness with palpation. She reports some gas per her colostomy. She has had a small amount of liquid output from the colostomy. - Extremities Exam Extremities exam: Present: normal inspection - Neurological Exam Neurological exam: Present: alert, oriented X3, strengths equal and symetr throughout. Absent: no focal deficits - Skin Skin exam: Present: dry, warm Palliative Quality Palliative Quality: Screen for Code Status: Yes, Screen for Goals of Care: Yes, Screen for Pain: Yes, If Pain Regimen Started, Initiate Bowel Regimen: Yes, Screen for Nausea/Vomitting: Yes - Labs CBC & Chem 7: 04/27/16 03:35 04/27/16 03:35 Labs: Laboratory Results - last 24 hr 04/26/16 04/27/16 04/27/16 10:30 03:35 03:35 WBC 5.8 RBC 2.97 L Hgb 9.2 L D Hct 26.9 L MCV 90.6 D MCH 31.0 MCHC 34.2 RDW 17.7 H Plt Count 109 L MPV 9.0 L Immature Gran % 0.5 Seg Neutrophils % 84.3 Lymphocytes % 6.9 Monocytes % 3.6 Eosinophils % 4.7 Basophils % 0.0 Neutrophils # 4.9 Lymphocytes # 0.4 L Monocytes # 0.2 Eosinophils # 0.3 Basophils # 0.0 Immature Plt Fraction 1.3 Sodium 133 L Potassium 3.5 Chloride 98 Carbon Dioxide 24 BUN 8 Creatinine 0.73 Est GFR ( Amer) > 60 Est GFR (Non-Af Amer) > 60 BUN/Creatinine Ratio 11 Glucose 99 Calculated Osmolality 274 L Calcium 7.7 L Magnesium < 0.7 L Blood Type A POSITIVE Antibody Screen NEGATIVE Crossmatch See Detail - ABG Interpretation ABG results: PT/INR, D-dimer PT 15.6 Seconds (9.4-12.1) H 04/24/16 11:53 Consult Discharge Plan - Plan Referrals: Justin Morgan, COMPUTER SECURITY MANAGER [Primary Care Provider] -
--- NOTE | 2016-04-27 10:34 | Internal Med Progress Note ---
Date of Encounter: 04/27/16 Time of Encounter: 09:30 - Assessment and plan (1) SBO (small bowel obstruction) Current Visit: Yes Status: Acute Assessment and plan: Patient is tolerating liquids and is still flatulent. Scant amount of liquid brown stool noted in her colostomy. We will continue to advance to full liquids and monitor her response. If she develops symptoms consistent with bowel obstruction, will likely transfer to [facility] for surgical intervention. As her pain is much better controlled, palliative and oncology on board. 04/26/[address] yesterday consistent with small bowel obstruction secondary to neoplastic mass. Patient was made nothing by mouth but she refuses to have an NG tube placed. Oncology on board. Initial plan was to transfer the patient back to [facility] for surgical intervention however as the patient has been asymptomatic regarding possible bowel obstruction, we will start her out on a full liquid diet and evaluate her response. If she becomes symptomatic, we will transfer her to [facility] at that time. ITS Impressions Abdomen/Pelvis CT 04/25/16 11:40 IMPRESSION: Findings of acute small bowel obstruction with transition point in the pelvis, likely secondary to neoplastic mass which tethers small bowel loops near a prior anastomotic site Focal mass in the lower abdominal mesentery, likely related to the patient's history of carcinoma. Mildly enlarged metastatic mesenteric lymph nodes are also seen. Triangular shaped collection of fluid and gas is seen in the pelvis, posterior to the right ureteral stent, measuring 2.7 x 2.7 cm. This may be within the vagina or represent a small abscess Bilateral ureteral stents. There is moderate right-sided hydronephrosis. There is bladder wall thickening. . Correlate with urinalysis to exclude infection. D/ / Mazin Goldsmith MD / Mazin Goldsmith MD Interpreting Provider: Mazin Goldsmith MD (2) Near syncope Current Visit: Yes Status: Acute Assessment and plan: Patient's weakness have improved today after receiving 2 units of packed red blood cells yesterday. She is much more alert and interactive. OT without needs, PT recommending continuing home health. Disposition undetermined at this time, advancing her diet and monitoring closely. 04/26/[address] consistent with small bowel obstruction and the patient was made nothing by mouth and an NG tube was ordered however the patient refused NG tube placement. Blood cultures negative. Urine culture grossly mixed and unable to be interpreted, will continue ceftriaxone. Patient's anemia is also worsened and she is being transfused 2 units of packed red blood cells. Oncology and palliative care on board. OT and PT are also on board. 04/25/16 Likely secondary to urinary tract infection. Chest x-ray negative. Head CT negative. Lumbar and thoracic CTs both negative. Hemoglobin stable. Hypokalemia resolved. Urinary tract infection noted, continue ceftriaxone. Tox screen positive for opiates only. OT and PT consultations pending. Abdominal CT also ordered at this time. She is alert and oriented 3 and complains of generalized abdominal pain. ITS Impressions Chest X-Ray 04/24/16 11:09 IMPRESSION: No acute findings. D/ / Raina Chandler MD / Raina Chandler MD Interpreting Provider: Raina Chandler MD Head CT 04/24/16 11:11 IMPRESSION: No acute intracranial abnormality. D/ / Josemanuel Nava MD / Josemanuel Nava MD Interpreting Provider: Josemanuel Nava MD Lumbar Spine CT 04/24/16 11:19 IMPRESSION: No acute fracture. D/ / Raina Chandler MD / Raina Chandler MD Interpreting Provider: Raina Chandler MD Thoracic Spine CT 04/24/16 11:20 IMPRESSION: No definite osteolytic or osteoblastic metastatic disease in the thoracic spine. Degenerative cervical spondylosis and degenerative disc disease at T11-T12. D/ / Amarjit Salomon MD / Amarjit Salomon MD Interpreting Provider: Amarjit Salomon MD (3) Intractable pain Current Visit: No Status: Acute Assessment and plan: Pain is currently controlled on Dilaudid pump and by mouth oxycodone. Palliative care on board and are adjusting her pain medications. Of note, as her stomach is relatively empty, by mouth medication is exacerbating her nausea so unable to discontinue Dilaudid pump at this time. We will discontinue Dilaudid DISCOTHEQUE DANCER pump as appropriate. 04/25/16 Patient stating her pain is currently uncontrolled. Patient stating she takes oxycodone 15 mg at home. She states she spoke to take them every 12 and she has been taking them every 6 because they are not lasting. However it appears as if she takes 45 mg of oxycodone every 12 hours at home with 10 mg every 4 hours for breakthrough pain. This has been continued, will continue IV Dilaudid. She may need to transition to [place] Contin, will continue to monitor. We will continue to address her pain. (4) UTI (urinary tract infection) Current Visit: No Status: Acute Assessment and plan: Abnormal urinalysis, culture grossly mixed and unable to be interpreted. Continue ceftriaxone. Qualifiers: Qualified Code(s): N39.0 - Urinary tract infection, site not specified (5) Generalized abdominal pain Current Visit: Yes Status: Acute Assessment and plan: Pain is currently controlled, will continue to monitor. 04/26/[address] revealing small bowel obstruction likely secondary to neoplastic mass. Imaging further evaluated per oncology, plan is to advance the patient's diet and see how she tolerates. If she starts to display symptoms consistent with bowel obstruction, will likely transfer to [facility] at that time. Spoke to [facility] surgical team Dr. Patel who states the patient was just operated on in October at [facility] and she would need to return for further treatment if indicated. ITS Impressions Abdomen/Pelvis CT 04/25/16 11:40 IMPRESSION: Findings of acute small bowel obstruction with transition point in the pelvis, likely secondary to neoplastic mass which tethers small bowel loops near a prior anastomotic site Focal mass in the lower abdominal mesentery, likely related to the patient's history of carcinoma. Mildly enlarged metastatic mesenteric lymph nodes are also seen. Triangular shaped collection of fluid and gas is seen in the pelvis, posterior to the right ureteral stent, measuring 2.7 x 2.7 cm. This may be within the vagina or represent a small abscess Bilateral ureteral stents. There is moderate right-sided hydronephrosis. There is bladder wall thickening. . Correlate with urinalysis to exclude infection. D/ / Mazin Goldsmith MD / Mazin Goldsmith MD Interpreting Provider: Mazin Goldsmith MD (6) Cervical cancer Current Visit: Yes Status: Chronic Assessment and plan: Patient stating she is currently in radiation since July. Oncology onboard. Qualifiers: Qualified Code(s): C53.9 - Malignant neoplasm of cervix uteri, unspecified (7) Generalized weakness Current Visit: Yes Status: Acute Assessment and plan: Patient complains of generalized weakness but states this has improved after receiving blood. Likely secondary to urinary tract infection, anemia and advanced metastatic cancer. OT and PT on board and have recommended home health services. (8) Hypokalemia Current Visit: Yes Status: Resolved (9) Anemia Current Visit: No Status: Chronic Assessment and plan: Status post transfusion of 2 units of packed red blood cells yesterday. Hemodynamically stable today, we will continue to trend. 04/26/16 Decrease overnight, now less than 7 and the patient is symptomatic with weakness. We will transfuse 2 units of packed red blood cells. 04/25/16 Currently stable and at the low end of her normal. We will continue to trend and transfuse if indicated. On 04/19/16, patient's ferritin levels were grossly elevated; no indication for iron supplementation. B12 at that time normal, folate normal, TSH checked in March also normal. Likely secondary to ongoing cancer treatment. Qualifiers: Qualified Code(s): D64.9 - Anemia, unspecified (10) DVT prophylaxis Current Visit: No Status: Acute Assessment and plan: As she was transfused yesterday, will discontinue subcutaneous Lovenox at this time and initiate IPC's. (11) GERD (gastroesophageal reflux disease) Current Visit: No Status: Chronic Assessment and plan: Denies current symptoms, continue omeprazole Qualifiers: Qualified Code(s): K21.9 - Gastro-esophageal reflux disease without esophagitis (12) HTN (hypertension) Current Visit: No Status: Chronic Assessment and plan: Controlled, will continue to trend and adjust medications as indicated. Qualifiers: Qualified Code(s): I10 - Essential (primary) hypertension (13) Intractable vomiting with nausea Current Visit: No Status: Chronic Assessment and plan: Patient continues to endorse nausea after taking her oral medications. Tolerating liquid diet, advancing to full liquids at this time. We will continue Zofran and Phenergan. Qualifiers: Qualified Code(s): G43.A1 - Cyclical vomiting, intractable (14) Thrombocytopenia Current Visit: No Status: Chronic Assessment and plan: Chronic, currently consistent with her baseline. No signs of active bleeding. (15) Colostomy in place Current Visit: No Status: Chronic (16) Hypothyroidism Current Visit: No Status: Chronic Assessment and plan: TSH checked last month, normal Qualifiers: Qualified Code(s): E03.9 - Hypothyroidism, unspecified (17) Mood disorder Current Visit: No Status: Chronic Assessment and plan: Mood and affect stable during my interaction with her. Patient was much more alert and interactive and talkative today. (18) Obesity (BMI 30-39.9) Current Visit: No Status: Chronic (19) Restless leg syndrome Current Visit: No Status: Chronic - Subjective Interval history: Patient seen and examined in concert with Palliative care SMOG TECHNICIAN Francisca Simon. On examination, patient sitting upright in bed. Patient states she has been able to drink Sprite but has otherwise unable to take liquids. Patient is endorsing nausea after receiving oral medications. No vomiting. Patient is continuing to be flatulent. She states her pain is better controlled today. - Constitutional Vitals: Temp Pulse Resp BP Pulse Ox 98.0 F 88 16 130/85 96 04/27/16 07:17 04/27/16 07:17 04/27/16 07:17 04/27/16 07:17 04/27/16 07:17 General appearance: Present: A&O X 3, pleasant, no acute distress, answers questions appropriately - Head Head exam: Present: atraumatic, normocephalic - Eye Eye exam: Present: PERRL, conjuntiva pink, sclera anicteric Pupils: Present: PERRL - Neck Neck exam general surgery: Present: supple, trachea midline. Absent: lymphadenopathy - Respiratory Respiratory exam: Present: decreased breath sounds. Absent: accessory muscle use, rales, respiratory distress, rhonchi, wheezes - Cardiovascular Cardiovascular exam: Present: RRR, +S1, +S2. Absent: diastolic murmur, gallop, rubs, systolic murmur - GI/Abdominal GI/Abdominal exam: Present: distended, normal bowel sounds, soft, tenderness ( diffuse), no peritoneal signs Additional comments: colostomy bag - Extremities Exam Extremities exam: Present: warm, radial pulses palpable and symetrical. Absent : calf tenderness, cyanotic, pedal edema - Neurological Exam Neurological exam: Present: alert, CN II-XII intact, oriented X3, no focal deficits, strengths equal and symetr throughout. Absent: pronater drift, facial droop, speech deficit - Skin Skin exam: Present: dry, intact, normal color, warm Internal Medicine: Result - Labs CBC & Chem 7: 04/27/16 03:35 04/27/16 03:35 Labs: Short CBC 04/27/16 Range/Units 03:35 WBC 5.8 (4.3-11.1) K/mcL Hgb 9.2 L D (11.5-15.4) g/dL Hct 26.9 L (35.3-44.9) % Plt Count 109 L (140-400) K/mcL Neutrophils # 4.9 (1.6-8.9) K/mcL BMP 04/27/16 03:35 Sodium 133 L Potassium 3.5 Chloride 98 Carbon Dioxide 24 BUN 8 Creatinine 0.73 Glucose 99 Calcium 7.7 L - ABG Interpretation ABG results: PT/INR, D-dimer PT 15.6 Seconds (9.4-12.1) H 04/24/16 11:53 Consult Discharge Plan - Plan Referrals: Justin Morgan SMOG TECHNICIAN [Primary Care Provider] -
[2016-04-27] MEDS: Gabapentin 300 MG CAPSULE PO SCH (21:35)
[2016-04-27] MEDS: Loratadine 10 MG TABLET PO SCH (21:35)
[2016-04-27] MEDS: Ondansetron 4 MG/2 ML VIAL IVP PRN (23:18)
[2016-04-28] MEDS: *HR* Promethazine 25 MG/ML VIAL IVP PRN ×2 (02:36→11:30)
[2016-04-28 03:51] LABS: Hemoglobin 8.7 g/dL (11.5-15.4); Mean Corpuscular Hemoglobin 30.5 pg (28.0-33.3); Red Blood Count 2.85 M/mcL (3.82-4.97)
[2016-04-28 03:53] LABS: Hematocrit 25.7 % (35.3-44.9); Immature Platelets 1.5 % (1.1-6.1); Mean Corpuscular HGB Conc 33.9 g/dL (31.6-35.5); Mean Corpuscular Volume 90.2 fL (83.0-100.0); Mean Platelet Volume 8.6 fL (9.4-12.4); Monocytes # 0.3 K/mcL (0.0-1.3); Platelet Count 109 K/mcL (140-400); Red Cell Distribution Width 16.8 % (11.5-14.5)
[2016-04-28 03:57] LABS: BUN/Creatinine Ratio 10 (6-26); Blood Urea Nitrogen 7 mg/dL (7-20); Calcium 7.7 mg/dL (8.6-10.8); Carbon Dioxide 21 mEq/L (19-29); Chloride 98 mEq/L (98-109); Glucose 94 mg/dL (70-99); Osmolality,Calculated 274 (280-300); Potassium 3.5 mEq/L (3.5-4.5); Sodium 133 mEq/L (136-145); eGFR For African Americans > 60 (> 60); eGFR For Non-African Americans > 60 (> 60)
[2016-04-28 04:23] LABS: Anisocytosis 1+ (Not Present); Lymphocytes # 0.2 K/mcL (0.6-4.6); Neutrophils # 3.7 K/mcL (1.6-8.9); Platelet Estimate Slight Decrease (Normal)
[2016-04-28] MEDS: *HR* OxyCODONE ER (12 HR) 20 MG TABLET PO SCH ×2 (05:53→18:12)
[2016-04-28] MEDS: Ondansetron 4 MG/2 ML VIAL IVP PRN ×2 (05:54→13:37)
[2016-04-28] MEDS: Ringers Solution, Lactated 1,000 ML IVC SCH ×2 (08:38→19:48)
--- NOTE | 2016-04-28 12:48 | Internal Med Progress Note ---
Date of Encounter: 04/28/16 Time of Encounter: 09:30 - Assessment and plan (1) SBO (small bowel obstruction) Current Visit: Yes Status: Acute Assessment and plan: Per nursing staff, patient vomited a couple times yesterday though I do not see this charted in her chart. This morning, she has been able to eat half of her oatmeal and has held it down thus far. She states she just changed her colostomy bag and had a small amount of stool output. She is still flatulent. We will continue to monitor as she attempts by mouth intake. She states her pain is better controlled today. 04/27/16 Patient is tolerating liquids and is still flatulent. Scant amount of liquid brown stool noted in her colostomy. We will continue to advance to full liquids and monitor her response. If she develops symptoms consistent with bowel obstruction, will likely transfer to [facility] for surgical intervention. As her pain is much better controlled, palliative and oncology on board. 04/26/[address] yesterday consistent with small bowel obstruction secondary to neoplastic mass. Patient was made nothing by mouth but she refuses to have an NG tube placed. Oncology on board. Initial plan was to transfer the patient back to [facility] for surgical intervention however as the patient has been asymptomatic regarding possible bowel obstruction, we will start her out on a full liquid diet and evaluate her response. If she becomes symptomatic, we will transfer her to [facility] at that time. ITS Impressions Abdomen/Pelvis CT 04/25/16 11:40 IMPRESSION: Findings of acute small bowel obstruction with transition point in the pelvis, likely secondary to neoplastic mass which tethers small bowel loops near a prior anastomotic site Focal mass in the lower abdominal mesentery, likely related to the patient's history of carcinoma. Mildly enlarged metastatic mesenteric lymph nodes are also seen. Triangular shaped collection of fluid and gas is seen in the pelvis, posterior to the right ureteral stent, measuring 2.7 x 2.7 cm. This may be within the vagina or represent a small abscess Bilateral ureteral stents. There is moderate right-sided hydronephrosis. There is bladder wall thickening. . Correlate with urinalysis to exclude infection. D/ / Mazin Goldsmith MD / Mazin Goldsmith MD Interpreting Provider: Mazin Goldsmith MD (2) Near syncope Current Visit: Yes Status: Acute Assessment and plan: Patient's weakness have improved today after receiving 2 units of packed red blood cells 2 days ago. She is much more alert and interactive. OT without needs, PT recommending continuing home health. Disposition undetermined at this time, continuing to advance her diet and monitor her closely. 04/26/[address] consistent with small bowel obstruction and the patient was made nothing by mouth and an NG tube was ordered however the patient refused NG tube placement. Blood cultures negative. Urine culture grossly mixed and unable to be interpreted, will continue ceftriaxone. Patient's anemia is also worsened and she is being transfused 2 units of packed red blood cells. Oncology and palliative care on board. OT and PT are also on board. 04/25/16 Likely secondary to urinary tract infection. Chest x-ray negative. Head CT negative. Lumbar and thoracic CTs both negative. Hemoglobin stable. Hypokalemia resolved. Urinary tract infection noted, continue ceftriaxone. Tox screen positive for opiates only. OT and PT consultations pending. Abdominal CT also ordered at this time. She is alert and oriented 3 and complains of generalized abdominal pain. ITS Impressions Chest X-Ray 04/24/16 11:09 IMPRESSION: No acute findings. D/ / Raina Chandler MD / Raina Chandler MD Interpreting Provider: Raina Chandler MD Head CT 04/24/16 11:11 IMPRESSION: No acute intracranial abnormality. D/ / Josemanuel Nava MD / Josemanuel Nava MD Interpreting Provider: Josemanuel Nava MD Lumbar Spine CT 04/24/16 11:19 IMPRESSION: No acute fracture. D/ / Raina Chandler MD / Raina Chandler MD Interpreting Provider: Raina Chandler MD Thoracic Spine CT 04/24/16 11:20 IMPRESSION: No definite osteolytic or osteoblastic metastatic disease in the thoracic spine. Degenerative cervical spondylosis and degenerative disc disease at T11-T12. D/ / Amarjit Salomon MD / Amarjit Salomon MD Interpreting Provider: Amarjit Salomon MD (3) Intractable pain Current Visit: No Status: Acute Assessment and plan: Pain is currently controlled on Dilaudid pump and by mouth oxycodone. Palliative care on board and are adjusting her pain medications. Of note, as her stomach is relatively empty, by mouth medication is exacerbating her nausea so unable to discontinue Dilaudid pump at this time. We will discontinue Dilaudid [employer] pump as appropriate. 04/25/16 Patient stating her pain is currently uncontrolled. Patient stating she takes oxycodone 15 mg at home. She states she spoke to take them every 12 and she has been taking them every 6 because they are not lasting. However it appears as if she takes 45 mg of oxycodone every 12 hours at home with 10 mg every 4 hours for breakthrough pain. This has been continued, will continue IV Dilaudid. She may need to transition to RI Contin, will continue to monitor. We will continue to address her pain. (4) UTI (urinary tract infection) Current Visit: No Status: Acute Assessment and plan: Abnormal urinalysis, culture grossly mixed and unable to be interpreted. Continue ceftriaxone. Qualifiers: Urinary tract infection type: site unspecified Hematuria presence: without hematuria Qualified Code(s): N39.0 - Urinary tract infection, site not specified (5) Generalized abdominal pain Current Visit: Yes Status: Acute Assessment and plan: Pain is currently controlled, will continue to monitor. 04/26/[address] revealing small bowel obstruction likely secondary to neoplastic mass. Imaging further evaluated per oncology, plan is to advance the patient's diet and see how she tolerates. If she starts to display symptoms consistent with bowel obstruction, will likely transfer to [facility] at that time. Spoke to [facility] surgical team Dr. Patel who states the patient was just operated on in October at [facility] and she would need to return for further treatment if indicated. ITS Impressions Abdomen/Pelvis CT 04/25/16 11:40 IMPRESSION: Findings of acute small bowel obstruction with transition point in the pelvis, likely secondary to neoplastic mass which tethers small bowel loops near a prior anastomotic site Focal mass in the lower abdominal mesentery, likely related to the patient's history of carcinoma. Mildly enlarged metastatic mesenteric lymph nodes are also seen. Triangular shaped collection of fluid and gas is seen in the pelvis, posterior to the right ureteral stent, measuring 2.7 x 2.7 cm. This may be within the vagina or represent a small abscess Bilateral ureteral stents. There is moderate right-sided hydronephrosis. There is bladder wall thickening. . Correlate with urinalysis to exclude infection. D/ / Mazin Goldsmith MD / Mazin Goldsmith MD Interpreting Provider: Mazin Goldsmith MD (6) Cervical cancer Current Visit: Yes Status: Chronic Assessment and plan: Patient stating she is currently in radiation since July. Oncology onboard. Current plan is to monitor her by mouth intake and her response. If she starts to develop signs consistent with bowel obstruction, she will be transferred to [facility] for possible surgical intervention. Qualifiers: Malignant neoplasm of cervix location: unspecified location Qualified Code( s): C53.9 - Malignant neoplasm of cervix uteri, unspecified (7) Generalized weakness Current Visit: Yes Status: Acute Assessment and plan: Patient complains of generalized weakness but states this has improved after receiving blood. Likely secondary to urinary tract infection, anemia and advanced metastatic cancer. OT and PT on board and have recommended home health services. (8) Hypokalemia Current Visit: Yes Status: Resolved (9) Anemia Current Visit: No Status: Chronic Assessment and plan: Status post transfusion of 2 units of packed red blood cells 2 days ago. Hemodynamically stable today, we will continue to trend. 04/26/16 Decrease overnight, now less than 7 and the patient is symptomatic with weakness. We will transfuse 2 units of packed red blood cells. 04/25/16 Currently stable and at the low end of her normal. We will continue to trend and transfuse if indicated. On 1/17/17, patient's ferritin levels were grossly elevated; no indication for iron supplementation. B12 at that time normal, folate normal, TSH checked in March also normal. Likely secondary to ongoing cancer treatment. Qualifiers: Anemia type: unspecified type Qualified Code(s): D64.9 - Anemia, unspecified (10) DVT prophylaxis Current Visit: No Status: Acute Assessment and plan: Continue IPC's. Pharmacologic prophylaxis contraindicated given that she was recently transfused during this admission. (11) GERD (gastroesophageal reflux disease) Current Visit: No Status: Chronic Assessment and plan: Denies current symptoms, continue omeprazole Qualifiers: Esophagitis presence: esophagitis presence not specified Qualified Code(s) : K21.9 - Gastro-esophageal reflux disease without esophagitis (12) HTN (hypertension) Current Visit: No Status: Chronic Assessment and plan: Controlled, will continue to trend and adjust medications as indicated. Qualifiers: Hypertension type: essential hypertension Qualified Code(s): I10 - Essential (primary) hypertension (13) Intractable vomiting with nausea Current Visit: No Status: Chronic Assessment and plan: Patient continues to endorse nausea after taking her oral medications. Tolerating full liquids at this time. We will continue Zofran and Phenergan. Qualifiers: Vomiting type: cyclical vomiting Qualified Code(s): G43.A1 - Cyclical vomiting, intractable (14) Thrombocytopenia Current Visit: No Status: Chronic Assessment and plan: Chronic, currently consistent with her baseline. No signs of active bleeding. (15) Colostomy in place Current Visit: No Status: Chronic (16) Hypothyroidism Current Visit: No Status: Chronic Assessment and plan: TSH checked last month, normal Qualifiers: Hypothyroidism type: acquired Qualified Code(s): E03.9 - Hypothyroidism, unspecified (17) Mood disorder Current Visit: No Status: Chronic Assessment and plan: Mood and affect stable during my interaction with her that she does have periods of pressured speech and is intelligible sometimes but she is able to answer all orientation questions. Patient was much more alert and interactive and talkative today. (18) Obesity (BMI 30-39.9) Current Visit: No Status: Chronic (19) Restless leg syndrome Current Visit: No Status: Chronic - Subjective Interval history: Patient seen and examined. On examination, patient is sitting upright in bed eating her breakfast and watching television. She states her pain is better controlled. She states she had just changed her colostomy bag and endorses small amount of stool output. Patient states she was able to eat approximately half of her breakfast when she became nauseated since she is resting at this time. No vomiting. She is alert and oriented 3 and answers questions appropriately however at times, patient says inappropriate things that are difficult to follow. - Constitutional Vitals: Temp Pulse Resp BP Pulse Ox 97.9 F 89 15 134/87 97 04/28/16 11:31 04/28/16 11:31 04/28/16 11:31 04/28/16 11:31 04/28/16 11:31 General appearance: Present: A&O X 3, pleasant, no acute distress, answers questions appropriately - Head Head exam: Present: atraumatic, normocephalic - Eye Eye exam: Present: PERRL, conjuntiva pink, sclera anicteric Pupils: Present: PERRL - Neck Neck exam general surgery: Present: supple, trachea midline. Absent: lymphadenopathy - Respiratory Respiratory exam: Present: decreased breath sounds. Absent: accessory muscle use, rales, respiratory distress, rhonchi, wheezes - Cardiovascular Cardiovascular exam: Present: RRR, +S1, +S2. Absent: diastolic murmur, gallop, rubs, systolic murmur - GI/Abdominal GI/Abdominal exam: Present: distended, normal bowel sounds, soft, tenderness, no peritoneal signs - Extremities Exam Extremities exam: Present: warm, radial pulses palpable and symetrical. Absent : calf tenderness, cyanotic, pedal edema - Neurological Exam Neurological exam: Present: alert, CN II-XII intact, oriented X3, no focal deficits, strengths equal and symetr throughout. Absent: pronater drift, facial droop, speech deficit - Expanded Psychiatric Exam Focused psych exam: Present: pressured speech - Skin Skin exam: Present: dry, intact, pallor, warm Internal Medicine: Result - Labs CBC & Chem 7: 04/28/16 03:39 04/28/16 03:39 Labs: Short CBC 04/28/16 Range/Units 03:39 WBC 4.2 L (4.3-11.1) K/mcL Hgb 8.7 L (11.5-15.4) g/dL Hct 25.7 L (35.3-44.9) % Plt Count 109 L (140-400) K/mcL Neutrophils # 3.7 (1.6-8.9) K/mcL BMP 04/28/16 03:39 Sodium 133 L Potassium 3.5 Chloride 98 Carbon Dioxide 21 BUN 7 Creatinine 0.70 Glucose 94 Calcium 7.7 L - ABG Interpretation ABG results: PT/INR, D-dimer PT 15.6 Seconds (9.4-12.1) H 04/24/16 11:53 - VTE Documentation of Mechanical Device: Intermittent pneumatic compression device Consult Discharge Plan - Plan Referrals: Justin Morgan, [employer] [Primary Care Provider] -
--- NOTE | 2016-04-28 13:29 | Palliative Progress Note ---
Date of Encounter: 04/28/16 Time of Encounter: 13:00 - Assessment and plan (1) Cancer associated pain Current Visit: No Status: Acute Assessment and plan: Patient reports pain to abdomen is better. Dilaudid RN CAMP at 9.3 total. Used 1mg since last night at 1999. Reports oral doses are helping for comfort. Rates pain at 3/10. 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 Still awaiting family to provide copy. Instructed nursing to ask daughter if she arrives if she was able to locate copy. Patient still actively seeking treatment and still desires Full Code. (3) Constipation Current Visit: No Status: Acute Assessment and plan: Patient with a colostomy and reports that she occasionally has liquid stool from rectum. Colostomy bag emptied this AM per nursing report. Patient reports feeling less abdominal pressure. Qualifiers: Constipation type: drug induced constipation Qualified Code(s): K59.03 - Drug induced constipation (4) SBO (small bowel obstruction) Current Visit: Yes Status: Acute Assessment and plan: Appears to be resolving at present. Patient tolerating PO for now and reports liquid from rectum. Abdomen soft with hypoactive bowel sounds. - Time Spent With Patient Total time spent is greater than 50% in coordination of care (as documented) at patient's floor/unit and/or counseling patient: 25 - 35 minutes - Subjective Interval history: Patient up in bathroom on the commode. Assisted back to bed. Ambulated without difficulty. Denies nausea at present. Reports eating oatmeal this AM and has been holding it down. - Constitutional Vitals: Abnormal lab results WBC 4.2 K/mcL (4.3-11.1) L 04/28/16 03:39 RBC 2.85 M/mcL (3.82-4.97) L 04/28/16 03:39 Hgb 8.7 g/dL (11.5-15.4) L 04/28/16 03:39 Hct 25.7 % (35.3-44.9) L 04/28/16 03:39 RDW 16.8 % (11.5-14.5) H 04/28/16 03:39 Plt Count 109 K/mcL (140-400) L 04/28/16 03:39 MPV 8.6 fL (9.4-12.4) L 04/28/16 03:39 Lymphocytes # 0.2 K/mcL (0.6-4.6) L 04/28/16 03:39 Platelet Estimate Slight Decrease (Normal) L 04/28/16 03:39 Anisocytosis 1+ (Not Present) A 04/28/16 03:39 ESR 82 mm/hr (0-15) H 04/24/16 11:53 PT 15.6 Seconds (9.4-12.1) H 04/24/16 11:53 Sodium 133 mEq/L (136-145) L 04/28/16 03:39 Calculated Osmolality 274 (280-300) L 04/28/16 03:39 Calcium 7.7 mg/dL (8.6-10.8) L 04/28/16 03:39 Magnesium < 0.7 mg/dL (1.6-2.6) L 04/27/16 03:35 C-Reactive Protein 155 mg/L (Less than 5) H 04/24/16 11:53 Albumin 2.4 g/dL (3.5-5.0) L 04/24/16 11:53 Globulin 4.5 g/dL (2.4-3.5) H 04/24/16 11:53 Albumin/Globulin Ratio 0.5 (1.1-2.2) L 04/24/16 11:53 Urine Clarity Cloudy (Clear) A 04/24/16 12:07 Urine Protein >=300 mg/dL (Neg-Trace) H 04/24/16 12:07 Urine Blood Large (Negative) H 04/24/16 12:07 Ur Leukocyte Esterase Moderate (Negative) H 04/24/16 12:07 Urine Microscopic RBC 50-100 per hpf (0-3) H 04/24/16 12:07 Urine Microscopic WBC 50-100 per hpf (0-3) H 04/24/16 12:07 Ur Squamous Epith Cells Many per lpf (None-Few) H 04/24/16 12:07 Ur Culture Indicated? YES (NO) A 04/24/16 12:07 Urine Opiates Screen Positive ng/mL ([id number]) H 04/24/16 12:07 - Head Head exam: Present: atraumatic (Bald) - Eye Eye exam: Present: PERRL Pupils: Present: PERRL - ENT ENT exam: Present: mucous membranes moist - Neck Neck exam: Present: full ROM - Respiratory Respiratory exam: Present: CTAB - Cardiovascular Cardiovascular exam: Present: RRR, +S1, +S2 - GI/Abdominal GI/Abdominal exam: Present: hypoactive bowel sounds (Colostomy bag with small amount soft stool), soft - Rectal Rectal exam: Present: deferred - Extremities Exam Extremities exam: Present: full ROM - Back Exam Back exam: Present: full ROM - Neurological Exam Neurological exam: Present: alert, CN II-XII intact, oriented X3 - Psychiatric Psychiatric exam: Present: flat affect, normal affect, normal mood - Skin Skin exam: Present: pallor, warm Palliative Quality Palliative Quality: Screen for Code Status: Yes, Screen for Goals of Care: Yes, Screen for Pain: Yes, If Pain Regimen Started, Initiate Bowel Regimen: Yes, Screen for Nausea/Vomitting: Yes - Labs CBC & Chem 7: 04/28/16 03:39 04/28/16 03:39 Labs: Laboratory Results - last 24 hr 04/28/16 04/28/16 03:39 03:39 WBC 4.2 L RBC 2.85 L Hgb 8.7 L Hct 25.7 L MCV 90.2 MCH 30.5 MCHC 33.9 RDW 16.8 H Plt Count 109 L MPV 8.6 L Seg Neutrophils % 84.0 Band Neutrophils % 4.0 Lymphocytes % 4.0 Monocytes % 8.0 Neutrophils # 3.7 Lymphocytes # 0.2 L Monocytes # 0.3 Platelet Estimate Slight Decrease L Immature Plt Fraction 1.5 Anisocytosis 1+ A Sodium 133 L Potassium 3.5 Chloride 98 Carbon Dioxide 21 BUN 7 Creatinine 0.70 Est GFR ( Amer) > 60 Est GFR (Non-Af Amer) > 60 BUN/Creatinine Ratio 10 Glucose 94 Calculated Osmolality 274 L Calcium 7.7 L - ABG Interpretation ABG results: PT/INR, D-dimer PT 15.6 Seconds (9.4-12.1) H 04/24/16 11:53 Consult Discharge Plan - Plan Referrals: Justin Morgan, [employer] [Primary Care Provider] -
[2016-04-28] MEDS: 0.9 % Sodium Chloride 1,000 ML IVC SCH (16:29)
[2016-04-28] MEDS ORDERED: *HR* LORazepam 2 MG/ML VIAL IVP ONE (17:50)
[2016-04-28] MEDS ORDERED: Lidocaine (Urojet) 5 ML JEL.PF.APP MM ONE (17:54)
[2016-04-28] MEDS ORDERED: Lidocaine Jelly 6 ml Syringe MM ONE (18:08)
[2016-04-28] MEDS ORDERED: *HR* LORazepam 2 MG/ML VIAL IVP PRN (22:48)
[2016-04-28] MEDS ORDERED: Acetaminophen 650 MG RECTAL SUPP RC PRN (22:53)
[2016-04-29] MEDS: Loratadine 10 MG TABLET PO SCH (00:18)
[2016-04-29] MEDS: Gabapentin 300 MG CAPSULE PO SCH (00:18)
[2016-04-29] MEDS: *HR* Promethazine 25 MG/ML VIAL IVP PRN (00:23)
[2016-04-29] MEDS: *HR* OxyCODONE ER (12 HR) 20 MG TABLET PO SCH (04:37)
[2016-04-29] MEDS: 0.9 % Sodium Chloride 1,000 ML IVC SCH (05:53)
[2016-04-29 05:55] LABS: Eosinophils % 1.5 %; Hematocrit 26.1 % (35.3-44.9); Immature Granulocytes % 0.4 % (0-4); Immature Platelets 1.1 % (1.1-6.1); Lymphocytes # 0.3 K/mcL (0.6-4.6); Lymphocytes % 11.2 %; Mean Corpuscular HGB Conc 34.5 g/dL (31.6-35.5); Mean Corpuscular Hemoglobin 31.3 pg (28.0-33.3); Mean Corpuscular Volume 90.6 fL (83.0-100.0); Mean Platelet Volume 8.6 fL (9.4-12.4); Monocytes # 0.2 K/mcL (0.0-1.3); Monocytes % 6.2 %; Neutrophils # 2.1 K/mcL (1.6-8.9); Platelet Count 120 K/mcL (140-400); Red Blood Count 2.88 M/mcL (3.82-4.97); Red Cell Distribution Width 17.1 % (11.5-14.5); Segmented Neutrophils % 80.7 %
[2016-04-29] MEDS ORDERED: Pantoprazole 40 MG VIAL IVP SCH (06:30)
[2016-04-29] MEDS ORDERED: Levothyroxine Sodium 100 MCG VIAL IVP SCH (09:00)
[2016-04-29] MEDS ORDERED: *HR* HYDROmorphone 2 MG/ML SYRINGE IVP ONE ×3 (09:35→15:45)
[2016-04-29] MEDS ORDERED: *HR* HYDROmorphone 20 MG/20 ML PCA IVC PRN (09:36)
--- NOTE | 2016-04-29 09:39 | Palliative Progress Note ---
Date of Encounter: 04/29/16 Time of Encounter: 09:37 - Assessment and plan (1) Cancer associated pain Current Visit: Yes Status: Acute Assessment and plan: Increase in abdominal pain since episode of vomiting and inability to take oxyCONTIN. Will adjust COMMERCIAL LENDER pump to compensate for lack of long acting opioid. Home meds: 45mg oxyCONTIN BID + oxycodone 10mg as needed (average 3 doses per day) = 180 oral morphine equivalents (OME) for chronic pain management. Will also compensate for acute on chronic pain. Will start a continuous dose at 0.5mg/hr with a 0.3mg demand dose. Bolus 1mg IV dilaudid now to get pain at a tolerable level. Monitor closely. Update: Ms. Stringer will be transferred to [facility] for further medical/surgical evaluation. Unable to maintain COMMERCIAL LENDER pump during transport. Will give bolus dose of 1.5mg IV dilaudid prior to transfer. Discussed case with hospitalist and primary RN. (2) Goals of care, counseling/discussion Current Visit: Yes Status: Acute Assessment and plan: Advanced directives requested from [facility]. Transfer to [facility] pending bed availability. Discussed goals with patient and hospitalist. (3) Constipation Current Visit: No Status: Acute Assessment and plan: Liquid brown output from colostomy. Small bowel obstruction with new placement of NG tube. Continue to monitor. Qualifiers: Constipation type: drug induced constipation Qualified Code(s): K59.03 - Drug induced constipation (4) Generalized weakness Current Visit: Yes Status: Acute Assessment and plan: Up at [facility]. PT following, no acute OT needs. (5) Intestinal obstruction Current Visit: Yes Status: Acute Assessment and plan: Ms. Stringer with a large amount of projectile vomiting last evening. Now with an NG placed. Management per hospitalist. Qualifiers: Intestinal obstruction type: unspecified Qualified Code(s): K56.60 - Unspecified intestinal obstruction - Time Spent With Patient Total time spent is greater than 50% in coordination of care (as documented) at patient's floor/unit and/or counseling patient: - Subjective Interval history: Ms. Stringer had an episode of projectile vomiting last evening. She is now NPO with an NG tube to low wall suction. NG output is brown-green with a foul odor. She reports abdominal pain 8/10 and is using her COMMERCIAL LENDER. She has not received her oxyCONTIN in the past 24 hours. After NG placement, Ms. Stringer reports some resolution in abdominal pain. She was seen and examined with Hospitalist Martell Nieves CNP. Case and recommendations discussed. - Constitutional Vitals: Abnormal lab results WBC 2.6 K/mcL (4.3-11.1) L 04/29/16 05:50 RBC 2.88 M/mcL (3.82-4.97) L 04/29/16 05:50 Hgb 9.0 g/dL (11.5-15.4) L 04/29/16 05:50 Hct 26.1 % (35.3-44.9) L 04/29/16 05:50 RDW 17.1 % (11.5-14.5) H 04/29/16 05:50 Plt Count 120 K/mcL (140-400) L 04/29/16 05:50 MPV 8.6 fL (9.4-12.4) L 04/29/16 05:50 Lymphocytes # 0.3 K/mcL (0.6-4.6) L 04/29/16 05:50 Platelet Estimate Slight Decrease (Normal) L 04/28/16 03:39 Anisocytosis 1+ (Not Present) A 04/28/16 03:39 ESR 82 mm/hr (0-15) H 04/24/16 11:53 PT 15.6 Seconds (9.4-12.1) H 04/24/16 11:53 Sodium 133 mEq/L (136-145) L 04/28/16 03:39 Calculated Osmolality 274 (280-300) L 04/28/16 03:39 Calcium 7.7 mg/dL (8.6-10.8) L 04/28/16 03:39 Magnesium < 0.7 mg/dL (1.6-2.6) L 04/27/16 03:35 C-Reactive Protein 155 mg/L (Less than 5) H 04/24/16 11:53 Albumin 2.4 g/dL (3.5-5.0) L 04/24/16 11:53 Globulin 4.5 g/dL (2.4-3.5) H 04/24/16 11:53 Albumin/Globulin Ratio 0.5 (1.1-2.2) L 04/24/16 11:53 Urine Clarity Cloudy (Clear) A 04/24/16 12:07 Urine Protein >=300 mg/dL (Neg-Trace) H 04/24/16 12:07 Urine Blood Large (Negative) H 04/24/16 12:07 Ur Leukocyte Esterase Moderate (Negative) H 04/24/16 12:07 Urine Microscopic RBC 50-100 per hpf (0-3) H 04/24/16 12:07 Urine Microscopic WBC 50-100 per hpf (0-3) H 04/24/16 12:07 Ur Squamous Epith Cells Many per lpf (None-Few) H 04/24/16 12:07 Ur Culture Indicated? YES (NO) A 04/24/16 12:07 Urine Opiates Screen Positive ng/mL (Lzxfqw=440) H 04/24/16 12:07 General appearance: Present: cooperative, no acute distress Exam: 45 year old female appearing chronically ill. She has an NG placed to suction with brown-green foul smelling output. - Eye Eye exam: Present: EOMI - ENT ENT exam: Present: mucous membranes moist Additional comments: NG intact - Respiratory Respiratory exam: Present: CTAB. Absent: accessory muscle use - Cardiovascular Cardiovascular exam: Present: RRR - GI/Abdominal GI/Abdominal exam: Present: soft, tenderness Additional comments: mid abdominal tenderness with palpation. Ostomy output liquid brown. - Additional comments: ortiz catheter intact with clear yellow urine - Extremities Exam Extremities exam: Present: normal inspection. Absent: pedal edema - Neurological Exam Neurological exam: Present: alert, oriented X3, no focal deficits - Psychiatric Psychiatric exam: Present: flat affect - Skin Skin exam: Present: dry, warm Palliative Quality Palliative Quality: Screen for Code Status: Yes, Screen for Goals of Care: Yes, Screen for Pain: Yes, If Pain Regimen Started, Initiate Bowel Regimen: Yes, Screen for Nausea/Vomitting: Yes - Labs CBC & Chem 7: 04/29/16 05:50 04/28/16 03:39 Labs: Laboratory Results - last 24 hr 04/29/16 05:50 WBC 2.6 L RBC 2.88 L Hgb 9.0 L Hct 26.1 L MCV 90.6 MCH 31.3 MCHC 34.5 RDW 17.1 H Plt Count 120 L MPV 8.6 L Immature Gran % 0.4 Seg Neutrophils % 80.7 Lymphocytes % 11.2 Monocytes % 6.2 Eosinophils % 1.5 Basophils % 0.0 Neutrophils # 2.1 Lymphocytes # 0.3 L Monocytes # 0.2 Eosinophils # 0.0 Basophils # 0.0 Immature Plt Fraction 1.1 - Impressions Impressions Chest X-Ray 04/28/16 18:52 IMPRESSION: New small infiltrate within the left upper lobe which may represent atelectasis versus pneumonia. Nasogastric tube identified with the tip in the body of the stomach. The proximal side port resides within the fundus. D/ / 04/28/2016 20:00:31 Rafal Salguero MD / cassia Interpreting Provider: Rafal Salguero MD - ABG Interpretation ABG results: PT/INR, D-dimer PT 15.6 Seconds (9.4-12.1) H 04/24/16 11:53 Consult Discharge Plan - Plan Additional Instructions: Follow-up with primary care provider and oncology team as needed Referrals: Justin Morgan, [facility] [Primary Care Provider] -
[2016-04-29] MEDS: Ondansetron 4 MG/2 ML VIAL IVP PRN (10:11)
[2016-04-29 11:52] VITALS: BP 142/88
[2016-04-29] MEDS ORDERED: Magnesium Sulfate 2 GM in D5% in Water 100 ML IVPB STA (14:12)
--- NOTE | 2016-04-29 14:15 | Discharge Summary ---
Date of Encounter: 04/29/16 Time of Encounter: 09:30 - Discharge Diagnosis (1) SBO (small bowel obstruction) Priority: Primary Status: Acute Comments: Conservative management failed, patient started with projectile vomiting after ingesting a liquid diet. NG tube placed, nothing by mouth, sending to [facility] (2) Hypomagnesemia Priority: Primary Status: Acute Comments: Noted on day of discharge, 2 g mag sulfate ordered stat, recommend repeat once arrived at [facility]. Telemetry reviewed, no acute changes. Potassium normal. (3) Near syncope Priority: Primary Status: Acute Comments: Patient's weakness had improved after receiving 2 units of packed red blood cells, but then as she was not able to take PO, she again became weak and tired. Sending to [facility] 04/26/[address] consistent with small bowel obstruction and the patient was made nothing by mouth and an NG tube was ordered however the patient refused NG tube placement. Blood cultures negative. Urine culture grossly mixed and unable to be interpreted, will continue ceftriaxone. Patient's anemia is also worsened and she is being transfused 2 units of packed red blood cells. Oncology and palliative care on board. OT and PT are also on board. 04/25/16 Likely secondary to urinary tract infection. Chest x-ray negative. Head CT negative. Lumbar and thoracic CTs both negative. Hemoglobin stable. Hypokalemia resolved. Urinary tract infection noted, continue ceftriaxone. Tox screen positive for opiates only. OT and PT consultations pending. Abdominal CT also ordered at this time. She is alert and oriented 3 and complains of generalized abdominal pain. ITS Impressions Chest X-Ray 04/24/16 11:09 IMPRESSION: No acute findings. D/ / Raina Chandler MD / Raina Chandler MD Interpreting Provider: Raina Chandler MD Head CT 04/24/16 11:11 IMPRESSION: No acute intracranial abnormality. D/ / Josemanuel Nava MD / Josemanuel Nava MD Interpreting Provider: Josemanuel Nava MD Lumbar Spine CT 04/24/16 11:19 IMPRESSION: No acute fracture. D/ / Raina Chandler MD / Raina Chandler MD Interpreting Provider: Raina Chandler MD Thoracic Spine CT 04/24/16 11:20 IMPRESSION: No definite osteolytic or osteoblastic metastatic disease in the thoracic spine. Degenerative cervical spondylosis and degenerative disc disease at T11-T12. D/ / Amarjit Salomon MD / Amarjit Salomon MD Interpreting Provider: Amarjit Salomon MD (4) Intractable pain Priority: Primary Status: Acute Comments: He required a Dilaudid PLAN NURSE pump while admitted, sending to [facility], will bolus her with Dilaudid just prior to transfer. (5) UTI (urinary tract infection) Priority: Primary Status: Resolved Comments: Abnormal urinalysis, culture grossly mixed and unable to be interpreted. Was treated with ceftriaxone 4 doses while admitted, no indication for antibiotics upon disposition Qualifiers: Urinary tract infection type: site unspecified Hematuria presence: without hematuria Qualified Code(s): N39.0 - Urinary tract infection, site not specified (6) Generalized abdominal pain Priority: Primary Status: Acute (7) Cervical cancer Priority: Secondary Status: Chronic Qualifiers: Malignant neoplasm of cervix location: unspecified location Qualified Code( s): C53.9 - Malignant neoplasm of cervix uteri, unspecified (8) Generalized weakness Priority: Primary Status: Acute (9) Hypokalemia Priority: Primary Status: Resolved (10) Anemia Priority: Secondary Status: Chronic Comments: Status post transfusion of 2 units of packed red blood cells 3 days ago. Hemodynamically stable today. Sending to [facility]. 04/26/16 Decrease overnight, now less than 7 and the patient is symptomatic with weakness. We will transfuse 2 units of packed red blood cells. 04/25/16 Currently stable and at the low end of her normal. We will continue to trend and transfuse if indicated. On 04/19/16, patient's ferritin levels were grossly elevated; no indication for iron supplementation. B12 at that time normal, folate normal, TSH checked in March also normal. Likely secondary to ongoing cancer treatment. Qualifiers: Anemia type: unspecified type Qualified Code(s): D64.9 - Anemia, unspecified (11) DVT prophylaxis Priority: Primary Status: Acute Comments: IPC's while admitted. Pharmacologic prophylaxis contraindicated as she was transfused during this admission. (12) GERD (gastroesophageal reflux disease) Priority: Secondary Status: Chronic Qualifiers: Esophagitis presence: esophagitis presence not specified Qualified Code(s) : K21.9 - Gastro-esophageal reflux disease without esophagitis (13) HTN (hypertension) Priority: Secondary Status: Chronic Comments: Relatively well controlled, hypertensive at times however her pain was uncontrolled at times. Recommend continued follow-up outpatient. Sending to [facility]. Qualifiers: Hypertension type: essential hypertension Qualified Code(s): I10 - Essential (primary) hypertension (14) Intractable vomiting with nausea Priority: Secondary Status: Chronic Comments: initially controlled; started with projectile vomiting prior to discharge. Sending to [facility] Qualifiers: Vomiting type: cyclical vomiting Qualified Code(s): G43.A1 - Cyclical vomiting, intractable (15) Thrombocytopenia Priority: Secondary Status: Chronic Comments: chronic and stable. No signs of active bleeding. (16) Colostomy in place Priority: Secondary Status: Chronic (17) Hypothyroidism Priority: Secondary Status: Chronic Comments: TSH checked last month, normal. Follow-up outpatient. Qualifiers: Hypothyroidism type: acquired Qualified Code(s): E03.9 - Hypothyroidism, unspecified (18) Mood disorder Priority: Secondary Status: Chronic Comments: For the most part, her mood and affect were stable throughout this admission. At times, she would have a flat affect and at times she was saying inappropriate things but for the most part she was able to engage easily in conversation and answer all questions. (19) Restless leg syndrome Priority: Secondary Status: Chronic Comments: Repleting magnesium levels (20) Obesity (BMI 30-39.9) Priority: Secondary Status: Chronic - Discharge Medications Home Medications: Bisoprolol/HCTZ 5/6.25 [Ziac 5/6.25] 1 tab PO DAILY 01/11/16 [History] Prochlorperazine Maleate [Compazine] 10 mg PO Q6HR PRN #90 tablet 02/15/16 [Rx] Magic Mouthwash 10 ml PO TID PRN #260 ml 02/18/16 [Rx] Ondansetron ODT [Zofran ODT] 4 mg SL Q4HR PRN #60 tab.rapdis 03/22/16 [Rx] Amitriptyline [Elavil] 50 mg PO HS #90 tablet 03/29/16 [Rx] Gabapentin [Neurontin] 300 mg PO HS #30 capsule 03/29/16 [Rx] LORazepam [Ativan] 1 mg PO Q6H PRN #60 tablet 03/29/16 [Rx] Pramipexole Di-HCl [Pramipexole Dihydrochloride] 0.125 mg PO HS #90 tablet 03/29 [Rx] Granisetron [Sancuso] 1 patch TD DAILY 04/10/16 [History] Levothyroxine [Synthroid] 88 mcg PO DAILY 04/10/16 [History] Omeprazole [PriLOSEC] 40 mg PO DAILY #30 cap 04/11/16 [Rx] Docusate [Colace] 100 mg PO BID PRN #0 capsule 04/16/16 [Rx] Allergies/Adverse Reactions: Allergies No Known Allergies Allergy (Verified 10/07/15 21:28) Date of admission: 04/25/16 15:41 Primary care physician: Justin Morgan CNP Consults: 04/25/16 15:45 Consult to Palliative Care [CONS] Routine Comment: Consulting Provider: Palliative Care Sydni 04/26/16 10:28 Consult to Invasive Line Access Team [CONS] Routine Reason for Consult: Limited vascular access Line Type: EPIV Discharging clinician: Leanna Murillo Anticipated date of discharge: 04/29/16 (transferring to [facility]) - Patient Status Disposition: Transfer [facility] Condition: Fair Functional capacity at discharge: independent ambulation Overall status at discharge: patient is not back to baseline - Discharge Instructions Follow Up With: Justin Morgan CNP [Primary Care Provider] - Additional Instructions: Follow-up with primary care provider and oncology team as needed - Diet and Activity Activity: increase activity as tolerated Diet: other (NPO) Hospital course: Ms. Aj is a 45 year old female with past medical history of stage IV cervical cancer on chemotherapy and radiation, bilateral hydronephrosis status post bilateral stent placement, GERD, hypothyroidism, RLS, migraines, anemia of chronic disease, colostomy. Patient presented to the emergency department chief complaint for near syncopal episodes at home associated with increased weakness 2 days. Patient also endorsed increased urinary urgency. Workup in the emergency department unremarkable except for an abnormal urinalysis. Chest x-ray negative. Head CT negative. Lumbar spine CT unremarkable. Thoracic spine CT without acute processes. Patient was started on ceftriaxone and admitted to the hospitalist service for further evaluation and management. Upon admission, patient's chief complaint transitioned to generalized abdominal pain so an abdominal CT was performed which revealed a small bowel obstruction likely secondary to neoplastic mass. Oncology and palliative care were brought on board. Patient was made nothing by mouth and she initially refused an NG tube. Films were reviewed per oncology team and the decision was made to proceed with conservative treatment. The patient was able to tolerate a regular diet on the first day of her admission, so she was transitioned back to a liquid diet and monitor closely for symptoms of a bowel obstruction. She was admitted and observed over course of 6 days. She initially tolerated a full liquid diet well however on day 5, she began to have projectile vomiting and decreased colostomy output. An NG tube was then placed. She was recently transitioned back to [facility] from [facility] for continued care of her cancer as she was unable to secure transportation to her [facility] appointments. In review of her chart, patient had a laparoscopic procedure per Dr. Larry Altamirano at [facility] in October 2015 which revealed extensive intra-abdominal adhesions and which a left hemicolectomy with end colostomy and creation of Karen pouch with small bowel resection and reanastomosis with excision of the omentum and adhesiolysis was performed. [facility] surgical team was brought on board who stated that as [facility] had recently performed surgery on her, patient would have to return back to [facility]. With conservative treatments failing, patient was then transferred to [facility] at the [facility] for further care. Palliative care was on board during this admission and the patient has chosen to still remain as a full code at this time. Urine culture ended up being mixed and unable to be interpreted, she was treated with 4 doses of IV Rocephin throughout this admission, no indication for antibiotics upon transfer. During this admission, her hemoglobin dropped below 7 and she was symptomatic with weakness she was transfused with 2 units of packed red blood cells. She remained hemodynamically stable for the rest of her admission. On day of discharge, she was noted to have a magnesium level less than 0.7 and she was given 2 g of mag sulfate prior to transfer. During this admission, she required a Dilaudid PLAN NURSE pump. She was accepted at [facility] Dr [facility] and she was transferred in stable condition. ITS Impressions Chest X-Ray 04/24/16 11:09 IMPRESSION: No acute findings. D/ / Raina Chandler MD / Raina Chandler MD Interpreting Provider: Raina Chandler MD Head CT 04/24/16 11:11 IMPRESSION: No acute intracranial abnormality. D/ / Josemanuel Nava MD / Josemanuel Nava MD Interpreting Provider: Josemanuel Nava MD Lumbar Spine CT 04/24/16 11:19 IMPRESSION: No acute fracture. D/ / Raina Chandler MD / Raina Chandler MD Interpreting Provider: Raina Chandler MD Thoracic Spine CT 04/24/16 11:20 IMPRESSION: No definite osteolytic or osteoblastic metastatic disease in the thoracic spine. Degenerative cervical spondylosis and degenerative disc disease at T11-T12. D/ / Amarjit Salomon MD / Amarjit Salomon MD Interpreting Provider: Amarjit Salomon MD Abdomen/Pelvis CT 04/25/16 11:40 IMPRESSION: Findings of acute small bowel obstruction with transition point in the pelvis, likely secondary to neoplastic mass which tethers small bowel loops near a prior anastomotic site Focal mass in the lower abdominal mesentery, likely related to the patient's history of carcinoma. Mildly enlarged metastatic mesenteric lymph nodes are also seen. Triangular shaped collection of fluid and gas is seen in the pelvis, posterior to the right ureteral stent, measuring 2.7 x 2.7 cm. This may be within the vagina or represent a small abscess Bilateral ureteral stents. There is moderate right-sided hydronephrosis. There is bladder wall thickening. . Correlate with urinalysis to exclude infection. D/ / Mazin Goldsmith MD / Mazin Goldsmith MD Interpreting Provider: Mazin Goldsmith MD Chest X-Ray 04/28/16 18:52 IMPRESSION: New small infiltrate within the left upper lobe which may represent atelectasis versus pneumonia. Nasogastric tube identified with the tip in the body of the stomach. The proximal side port resides within the fundus. D/ / 04/28/2016 20:00:31 Rafal Salguero MD / cassia Interpreting Provider: Rafal Salguero MD - Time Spent with Patient Total time spent providing and/or coordinating discharge services: - Constitutional Vitals: Temp Pulse Resp BP Pulse Ox 97.9 F 94 14 142/88 98 04/29/16 11:49 04/29/16 11:49 04/29/16 11:49 04/29/16 11:49 04/29/16 11:49 General appearance: Present: disheveled, A&O X 3, pleasant, no acute distress, answers questions appropriately - Head Head exam: Present: atraumatic, normocephalic - Eye Eye exam: Present: PERRL, conjuntiva pink, sclera anicteric Pupils: Present: PERRL - Neck Neck exam general surgery: Present: supple, trachea midline. Absent: lymphadenopathy - Respiratory Respiratory exam: Present: CTAB. Absent: accessory muscle use, rales, rhonchi, wheezes - Cardiovascular Cardiovascular exam: Present: RRR, +S1, +S2. Absent: diastolic murmur, gallop, rubs, systolic murmur - GI/Abdominal GI/Abdominal exam: Present: distended, soft, tenderness, no peritoneal signs - Extremities Exam Extremities exam: Present: warm, radial pulses palpable and symetrical. Absent : calf tenderness, cyanotic, pedal edema - Neurological Exam Neurological exam: Present: alert, altered (at times; but remains oriented x3 though confused at times), CN II-XII intact, oriented X3, no focal deficits, strengths equal and symetr throughout. Absent: pronater drift, facial droop, speech deficit - Skin Skin exam: Present: dry, intact, pallor, warm - VTE Documentation of Mechanical Device: Intermittent pneumatic compression device
== END 2016-04-29 15:53 | disposition short-term general hospital (02) | DRG 247 ==
LOC: 3BNU 11:02 → EMEROO 11:02 → 3BNU 14:52
PROVIDERS: ADMIT Nurse Practitioner Family; ATTEND Nurse Practitioner Family